=== PATIENT | male | born 1955 | race Caucasian/White ===

== ENCOUNTER 2021-05-28 14:20 | Inpatient (IN) | payer MEDICARE, BC ==
[2021-05-28] MEDS ORDERED: Sodium Chloride 0.9% 10 ML Syringe FLUSH PRN (15:09)
[2021-05-28] MEDS ORDERED: Sodium Chloride 0.9% 1,000 ML IV STA ×2 (15:10→19:39)
--- NOTE | 2021-05-28 15:45 | CR ---
Chest: Frontal view of the chest was obtained. Comparison: No prior chest imaging is available. Heart size is normal. Tortuous thoracic aorta is seen. Small nodule is seen within the left lung base. Lungs otherwise are clear with no acute parenchymal change. Bony structures are osteopenic. No acute osseous finding is appreciated. Impression: 1. Small nodule within the left lung base. Recommend noncontrast chest CT to further evaluate. 2. Nothing acute is otherwise seen on frontal chest x-ray. Diagnostic code #9 Report for [address] was discussed by phone with Dr. Jean on 05/28/21, 3:40 PM.
[2021-05-28 15:55] LABS: CORONAVIRUS COVID-19 NAA NEGATIVE (NEGATIVE)
--- NOTE | 2021-05-28 16:22 | EDM.PDOC ---
<William Caballero - Last Filed: 05/29/21 22:00> ED HPI GENERAL MEDICAL PROBLEM - General Chief Complaint: General Stated Complaint: SENT FROM [place]- LOW BP\OXYGEN Time Seen by Provider: 05/28/21 15:08 - Related Data Allergies Allergy/AdvReac Type Severity Reaction Status Date / Time No Known Allergies Allergy Verified 03/11/16 07:37 Home Meds: Home Meds Chlorthalidone 25 mg PO DAILY 05/28/21 [History] Metoprolol Succinate 100 mg PO DAILY 05/28/21 [History] lisinopriL [Lisinopril] 10 mg PO DAILY 05/28/21 [History] sulfaSALAzine [Azulfidine] 500 mg PO BID 05/28/21 [History] ED GENERAL MEDICAL PROCEDURES - Additional/Other Procedure(s) Other (Free Text) Procedure(s): Central Venous Catheter (CVC, Central Line) Placement Indication: Intravenous access for vasopressors A time-out was completed verifying correct patient, procedure, site, positioning, and special equipment if applicable. The patient was placed in a dependent position appropriate for central line placement based on the vein to be cannulated. The patients right groin was prepped and draped in sterile fashion. 1% Lidocaine was used to anesthetize the surrounding skin area. A triple lumen catheter was introduced into the the <right common femoral vein using the Seldinger technique and under ultrasound guidance. The catheter was threaded smoothly over the guide wire and appropriate blood return was obtained. Each lumen of the catheter was evacuated of air and flushed with sterile saline. The catheter was then sutured in place to the skin and a sterile dressing applied. Perfusion to the extremity distal to the point of catheter insertion was checked and found to be adequate. < Estimated Blood Loss: 3 cc The patient tolerated the procedure well and there were no complications. Course - Re-Assessments/Exams Free Text/Narrative Re-Assessment/Exam: 05/29/21 02:44 Assumed care at routine shift change. Chart was reviewed including laboratory studies, vital signs and patient history. Patient became more tachycardic and remained hypotensive. With elevated D-dimer, a CT angiogram was ordered to rule out massive pulmonary embolism. At this was negative. At this point, I decided to initiate Levophed infusion for patient's hypotension and to continue with resuscitation. Right femoral vein was utilized so that if dialysis is needed, internal jugular vein was available. At this point, etiology of hypotension is unclear the patient has maintained a normal mental status. We will titrate Levophed as needed to maintain systolic blood pressure greater than 100. We will continue with IV fluids. Repeat laboratory studies in the morning as we await patient placement. Free Text/Narrative Re-Assessment/Exam: 05/29/21 06:30 Patient seems to be more stabilized on Levophed. However, we will continue with hydrocortisone 50 mg every 6 hours for a total of 4 doses. Thus far, does not appear to be septic shock, cardiogenic shock and with the timing of abrupt cessation of steroids, we will treat for acute adrenal insufficiency Departure - Departure Time of Disposition: 10:00 Disposition: Admitted As Inpatient 67 Clinical Impression: Adrenal crisis Hypotension Qualifiers: Hypotension type: other hypotension type Qualified Code(s): I95.89 - Other hypotension - Discharge Information Critical Care Note - Critical Care Note Total Time (mins): 35 Comments: Critical Care Procedure Note Total critical care time: Approximately 35 minutes Due to a high probability of clinically significant, life threatening deterioration, the patient required my highest level of preparedness to intervene emergently and I personally spent this critical care time directly and personally managing the patient. This critical care time included obtaining a history; examining the patient; pulse oximetry; ordering and review of studies; arranging urgent treatment with development of a management plan; evaluation of patient's response to treatment; frequent reassessment; and, discussions with other providers. This critical care time was performed to assess and manage the high probability of imminent, life-threatening deterioration that could result in multi-organ failure. It was exclusive of separately billable procedures and treating other patients and teaching time. <Radha Leone - Last Filed: 05/30/21 22:18> ED HPI GENERAL MEDICAL PROBLEM - General Source of Information: Reports: Patient, Family, RN Notes Reviewed History Limitations: Reports: No Limitations - History of Present Illness INITIAL COMMENTS - FREE TEXT/NARRATIVE: Patient is a 66-year-old male presenting to the ER from [facility] for hypotension and low oxygen saturation. Provider, Celestina Christiansen, GINO, reported patient's blood pressure was 60-70 systolically. She also reported that his oxygen saturation was 84% on room air. He had an appointment with her to establish care. Patient and his report that he has had a cough for the last 3 weeks and has had little appetite. He has not been eating or drinking well. He had his Covid booster on April 26, however he was exposed to Covid on 24 April through his daughter. He did have his first 2 Covid vaccinations in October and September of last year. Patient denies any dizziness upon standing, chest pain, shortness of breath, vomiting, fever, or chills. States that he does feel overall fatigued and has had some intermittent diarrhea. He had a steroid injection in his right hip prior to being seen in the clinic by Celestina Christiansen. They did not check his blood pressure at that visit. Patient reports history of Raynaud's and difficulty obtaining oxygen saturation using finger probe. Past Medical History Other HEENT History: has upper dentures, partial denture on bottom, wears eyeglasses Cardiovascular History: Reports: Hypertension Musculoskeletal History: Reports: Back Pain, Chronic, RA - Infectious Disease History Infectious Disease History: Reports: None - Past Surgical History HEENT Surgical History: Reports: Adenoidectomy, Tonsillectomy Musculoskeletal Surgical History: Reports: Knee Replacement Other Musculoskeletal Surgeries/Procedures:: Lumbar spine fusion Social & Family History - Family History Family Medical History: No Pertinent Family History - Tobacco Use Tobacco Use Status *Q: Former Tobacco User Used Tobacco, but Quit: Yes Month/Year Tobacco Last Used: 45 yrs - Caffeine Use Caffeine Use: Reports: Coffee, Tea - Recreational Drug Use Recreational Drug Use: No - Living Situation & Occupation Living situation: Reports: Occupation: Employed ED ROS GENERAL - Review of Systems Review Of Systems: See Below Constitutional: Reports: Decreased Appetite. Denies: Fever HEENT: Reports: No Symptoms Respiratory: Reports: Cough. Denies: Shortness of Breath, Wheezing, Pleuritic Chest Pain Cardiovascular: Reports: No Symptoms. Denies: Chest Pain, Dyspnea on Exertion, Lightheadedness, Palpitations, Syncope Endocrine: Reports: No Symptoms GI/Abdominal: Reports: Diarrhea, Decreased Appetite, Nausea. Denies: Abdominal Pain, Vomiting : Reports: No Symptoms. Denies: Dysuria, Flank Pain, Urinary Retention Musculoskeletal: Reports: No Symptoms Skin: Reports: No Symptoms Neurological: Reports: No Symptoms Psychiatric: Reports: No Symptoms Hematologic/Lymphatic: Reports: No Symptoms Immunologic: Reports: No Symptoms ED EXAM, GENERAL - Physical Exam Exam: See Below Exam Limited By: No Limitations General Appearance: Alert, WD/WN, No Apparent Distress Eye Exam: Bilateral Eye: Normal Inspection, PERRL Respiratory/Chest: No Respiratory Distress, Lungs Clear, Normal Breath Sounds, No Accessory Muscle Use, Chest Non-Tender Cardiovascular: Normal Peripheral Pulses, Regular Rate, Rhythm, No Edema, No Gallop, No JVD, No Murmur, No Rub GI/Abdominal: Normal Bowel Sounds, Soft, Non-Tender, No Organomegaly, No Distention, No Abnormal Bruit, No Mass Extremities: Other (fingers on bilateral hands white and cold to touch.) Neurological: Alert, Oriented, CN II-XII Intact, Normal Cognition, Normal Reflexes, No Motor/Sensory Deficits Psychiatric: Normal Affect, Normal Mood Skin Exam: Warm, Dry, Intact, Normal Color, No Rash #1 Interpretation EKG Date: 05/28/21 Time: 15:44 Rhythm: NSR Rate (Beats/Min): 86 [place]: Normal P-Wave: Present QRS: Normal ST-T: Normal QT: Normal Course - Vital Signs Last Recorded V/S: Last Vital Signs Temp 97.5 F 05/30/21 19:56 Pulse 90 05/30/21 19:56 Resp 16 05/30/21 19:56 BP 108/77 05/30/21 19:45 Pulse Ox 97 05/30/21 19:45 - Orders/Labs/Meds Orders: Medication Orders Acetaminophen (Acetaminophen 325 Mg Tab) 650 mg PO Q4H PRN PRN Reason: Pain (Mild 1-3)/fever Albuterol (Albuterol 0.083% 2.5 Mg/3 Ml Neb Soln) 2.5 mg NEB Q2H PRN PRN Reason: Shortness Of Breath/wheezing Benzocaine/Menthol (Benzocaine/Cetylpyridinium/Menthol Lozenge) 1 lozenge MUC MEM Q2H PRN PRN Reason: Sore Throat Last Admin: 05/29/21 22:19 Dose: 1 lozenge Documented by: Admin: 05/29/21 20:54 Dose: 1 lozenge Documented by: ALEX Benzonatate (Benzonatate 100 Mg Cap) 100 mg PO Q8H PRN PRN Reason: Cough Last Admin: 05/30/21 21:39 Dose: 100 mg Documented by: Admin: 05/30/21 10:27 Dose: 100 mg Documented by: LISA Heparin Sodium (Porcine) (Heparin Sodium 5,000 Units/Ml Vial) 5,000 units SUBCUT Q12H MEG Last Admin: 05/30/21 19:45 Dose: 5,000 units Documented by: Admin: 05/30/21 08:07 Dose: 5,000 units Documented by: Admin: 05/29/21 20:42 Dose: 5,000 units Documented by: ALEX Norepinephrine Bitartrate 4 mg (/ Dextrose/Water) 250 mls @ 7.5 mls/hr IV TITRATE MEG; Protocol Last Titration: 05/30/21 19:53 Dose: 0 mcg/min, 0 mls/hr Documented by: Titration: 05/30/21 14:45 Dose: 1 mcg/min, 3.75 mls/hr Documented by: Titration: 05/30/21 12:10 Dose: 1.5 mcg/min, 5.625 mls/hr Documented by: Titration: 05/30/21 08:44 Dose: 2 mcg/min, 7.5 mls/hr Documented by: Titration: 05/30/21 05:11 Dose: 3 mcg/min, 11.25 mls/hr Documented by: Titration: 05/30/21 03:35 Dose: 4 mcg/min, 15 mls/hr Documented by: Titration: 05/30/21 01:03 Dose: 5 mcg/min, 18.75 mls/hr Documented by: Titration: 05/30/21 00:36 Dose: 4 mcg/min, 15 mls/hr Documented by: Titration: 05/29/21 23:39 Dose: 3 mcg/min, 11.25 mls/hr Documented by: Titration: 05/29/21 22:20 Dose: 2 mcg/min, 7.5 mls/hr Documented by: Admin: 05/29/21 20:57 Dose: 3 mcg/min, 11.25 mls/hr Documented by: Titration: 05/29/21 20:56 Dose: 0 mcg/min, 0 mls/hr Documented by: Titration: 05/29/21 10:55 Dose: 4 mcg/min, 15 mls/hr Documented by: Titration: 05/29/21 08:30 Dose: 3 mcg/min, 11.25 mls/hr Documented by: Titration: 05/29/21 06:56 Dose: 2 mcg/min, 7.5 mls/hr Documented by: Titration: 05/29/21 06:00 Dose: 4 mcg/min, 15 mls/hr Documented by: Titration: 05/29/21 04:48 Dose: 6 mcg/min, 22.5 mls/hr Documented by: Titration: 05/29/21 03:30 Dose: 4 mcg/min, 15 mls/hr Documented by: Admin: 05/29/21 01:38 Dose: 2 mcg/min, 7.5 mls/hr Documented by: ROSETTA Ondansetron HCl (Ondansetron 4 Mg/2 Ml Sdv) 4 mg IV Q6H PRN PRN Reason: Nausea/Vomiting Sodium Bicarbonate (Sodium Bicarbonate 650 Mg Tab) 650 mg PO BID MEG Last Admin: 05/30/21 21:39 Dose: 650 mg Documented by: Admin: 05/30/21 08:07 Dose: 650 mg Documented by: Admin: 05/29/21 20:42 Dose: 650 mg Documented by: Admin: 05/29/21 20:05 Dose: Not Given Documented by: ALEX Sodium Chloride (Sodium Chloride 0.9% 10 Ml Syringe) 10 ml FLUSH ASDIRECTED PRN PRN Reason: Keep Vein Open Last Admin: 05/28/21 16:12 Dose: 10 ml Documented by: LANCE Labs: Laboratory Tests 05/28/21 05/28/21 05/28/21 Range/Units 15:00 15:10 15:30 WBC 9.85 H (4.23-9.07) K/mm3 RBC 4.43 L (4.63-6.08) M/mm3 Hgb 12.8 L D (13.7-17.5) gm/dl Hct 38.1 L (40.1-51.0) % MCV 86.0 D (79.0-92.2) fl MCH 28.9 (25.7-32.2) pg MCHC 33.6 (32.2-35.5) g/dl RDW Std Deviation 53.4 H (35.1-43.9) fL Plt Count 356 H D (163-337) K/mm3 MPV 11.0 (9.4-12.3) fl Neut % (Auto) 80.9 H (34.0-67.9) % Lymph % (Auto) 12.5 L (21.8-53.1) % Perry % (Auto) 4.6 L (5.3-12.2) % Eos % (Auto) 1.5 (0.8-7.0) Baso % (Auto) 0.4 (0.1-1.2) % Neut # (Auto) 7.97 H (1.78-5.38) K/mm3 Lymph # (Auto) 1.23 L (1.32-3.57) K/mm3 Perry # (Auto) 0.45 (0.30-0.82) K/mm3 Eos # (Auto) 0.15 (0.04-0.54) K/mm3 Baso # (Auto) 0.04 (0.01-0.08) K/mm3 D-Dimer, Quantitative (0.19-0.50) mg/L Sodium (136-145) mEq/L Potassium (3.5-5.1) mEq/L Chloride (98-107) mEq/L Carbon Dioxide (21-32) mEq/L Anion Gap (5-15) BUN (7-18) mg/dL Creatinine (0.7-1.3) mg/dL Est Cr Clr Drug Dosing mL/min Estimated GFR (MDRD) (>60) mL/min BUN/Creatinine Ratio (14-18) Glucose (70-99) mg/dL POC Glucose (70-99) mg/dL Lactic Acid 2.1 H* (0.4-2.0) mmol/L Calcium (8.5-10.1) mg/dL Magnesium (1.8-2.4) mg/dL Total Bilirubin (0.2-1.0) mg/dL AST (15-37) U/L ALT (16-63) U/L Alkaline Phosphatase (46-116) U/L Troponin I (0.00-0.056) ng/mL C-Reactive Protein (<1.0) mg/dL NT-Pro-B Natriuret Pep (0-125) pg/mL Total Protein (6.4-8.2) g/dl Albumin (3.4-5.0) g/dl Globulin gm/dL Albumin/Globulin Ratio (1-2) Urine Color (Yellow) Urine Appearance (Clear) Urine pH (5.0-8.0) Ur Specific [place] (1.005-1.030) Urine Protein (Negative) Urine Glucose (UA) (Negative) Urine Ketones (Negative) Urine Occult Blood (Negative) Urine Nitrite (Negative) Urine Bilirubin (Negative) Urine Urobilinogen (0.2-1.0) Ur Leukocyte Esterase (Negative) U Hyaline Cast (Auto) (0-5) /lpf Urine RBC (0-5) /hpf Urine WBC (0-5) /hpf Ur Squamous Epith Cells (0-5) /hpf Urine Bacteria (FEW) /hpf Urine Mucus (FEW) /hpf Influenza Type A RNA Negative (NEGATIVE) Influenza Type B RNA Negative (NEGATIVE) SARS-CoV-2 RNA ([place]) Negative (NEGATIVE) 05/28/21 05/28/21 05/28/21 Range/Units 15:30 15:30 15:30 WBC (4.23-9.07) K/mm3 RBC (4.63-6.08) M/mm3 Hgb (13.7-17.5) gm/dl Hct (40.1-51.0) % MCV (79.0-92.2) fl MCH (25.7-32.2) pg MCHC (32.2-35.5) g/dl RDW Std Deviation (35.1-43.9) fL Plt Count (163-337) K/mm3 MPV (9.4-12.3) fl Neut % (Auto) (34.0-67.9) % Lymph % (Auto) (21.8-53.1) % Perry % (Auto) (5.3-12.2) % Eos % (Auto) (0.8-7.0) Baso % (Auto) (0.1-1.2) % Neut # (Auto) (1.78-5.38) K/mm3 Lymph # (Auto) (1.32-3.57) K/mm3 [place] # (Auto) (0.30-0.82) K/mm3 Eos # (Auto) (0.04-0.54) K/mm3 Baso # (Auto) (0.01-0.08) K/mm3 D-Dimer, Quantitative 2.22 H (0.19-0.50) mg/L Sodium 132 L (136-145) mEq/L Potassium 5.7 H D (3.5-5.1) mEq/L Chloride 94 L (98-107) mEq/L Carbon Dioxide 10 L D (21-32) mEq/L Anion Gap 33.7 H (5-15) BUN 178 H D (7-18) mg/dL Creatinine 14.4 H D (0.7-1.3) mg/dL Est Cr Clr Drug Dosing 5.11 mL/min Estimated GFR (MDRD) 3 (>60) mL/min BUN/Creatinine Ratio 12.4 L (14-18) Glucose 170 H (70-99) mg/dL POC Glucose (70-99) mg/dL Lactic Acid (0.4-2.0) mmol/L Calcium 9.7 (8.5-10.1) mg/dL Magnesium (1.8-2.4) mg/dL Total Bilirubin 0.5 (0.2-1.0) mg/dL AST 14 L (15-37) U/L ALT 15 L (16-63) U/L Alkaline Phosphatase 98 (46-116) U/L Troponin I < 0.017 (0.00-0.056) ng/mL C-Reactive Protein 2.3 H* (<1.0) mg/dL NT-Pro-B Natriuret Pep 4886 H (0-125) pg/mL Total Protein 8.4 H (6.4-8.2) g/dl Albumin 3.4 (3.4-5.0) g/dl Globulin 5.0 gm/dL Albumin/Globulin Ratio 0.7 L (1-2) Urine Color (Yellow) Urine Appearance (Clear) Urine pH (5.0-8.0) Ur Specific [place] (1.005-1.030) Urine Protein (Negative) Urine Glucose (UA) (Negative) Urine Ketones (Negative) Urine Occult Blood (Negative) Urine Nitrite (Negative) Urine Bilirubin (Negative) Urine Urobilinogen (0.2-1.0) Ur Leukocyte Esterase (Negative) U Hyaline Cast (Auto) (0-5) /lpf Urine RBC (0-5) /hpf Urine WBC (0-5) /hpf Ur Squamous Epith Cells (0-5) /hpf Urine Bacteria (FEW) /hpf Urine Mucus (FEW) /hpf Influenza Type A RNA (NEGATIVE) Influenza Type B RNA (NEGATIVE) SARS-CoV-2 RNA ([place]) (NEGATIVE) 05/28/21 05/28/21 05/28/21 Range/Units 19:18 19:40 22:03 WBC (4.23-9.07) K/mm3 RBC (4.63-6.08) M/mm3 Hgb (13.7-17.5) gm/dl Hct (40.1-51.0) % MCV (79.0-92.2) fl MCH (25.7-32.2) pg MCHC (32.2-35.5) g/dl RDW Std Deviation (35.1-43.9) fL Plt Count (163-337) K/mm3 MPV (9.4-12.3) fl Neut % (Auto) (34.0-67.9) % Lymph % (Auto) (21.8-53.1) % [place] % (Auto) (5.3-12.2) % Eos % (Auto) (0.8-7.0) Baso % (Auto) (0.1-1.2) % Neut # (Auto) (1.78-5.38) K/mm3 Lymph # (Auto) (1.32-3.57) K/mm3 [place] # (Auto) (0.30-0.82) K/mm3 Eos # (Auto) (0.04-0.54) K/mm3 Baso # (Auto) (0.01-0.08) K/mm3 D-Dimer, Quantitative (0.19-0.50) mg/L Sodium 132 L (136-145) mEq/L Potassium 6.0 H (3.5-5.1) mEq/L Chloride 99 (98-107) mEq/L Carbon Dioxide 12 L (21-32) mEq/L Anion Gap 27.0 H (5-15) BUN 176 H (7-18) mg/dL Creatinine 12.3 H D (0.7-1.3) mg/dL Est Cr Clr Drug Dosing 5.99 mL/min Estimated GFR (MDRD) 4 (>60) mL/min BUN/Creatinine Ratio 14.3 (14-18) Glucose 150 H (70-99) mg/dL POC Glucose 182 H (70-99) mg/dL Lactic Acid (0.4-2.0) mmol/L Calcium 8.0 L D (8.5-10.1) mg/dL Magnesium (1.8-2.4) mg/dL Total Bilirubin (0.2-1.0) mg/dL AST (15-37) U/L ALT (16-63) U/L Alkaline Phosphatase (46-116) U/L Troponin I (0.00-0.056) ng/mL C-Reactive Protein (<1.0) mg/dL NT-Pro-B Natriuret Pep (0-125) pg/mL Total Protein (6.4-8.2) g/dl Albumin (3.4-5.0) g/dl Globulin gm/dL Albumin/Globulin Ratio (1-2) Urine Color Dark yellow (Yellow) Urine Appearance Clear (Clear) Urine pH 5.5 (5.0-8.0) Ur Specific [place] > or = 1.030 (1.005-1.030) Urine Protein 2+ H (Negative) Urine Glucose (UA) Negative (Negative) Urine Ketones Trace H (Negative) Urine Occult Blood Negative (Negative) Urine Nitrite Negative (Negative) Urine Bilirubin 2+ H (Negative) Urine Urobilinogen 0.2 (0.2-1.0) Ur Leukocyte Esterase Negative (Negative) U Hyaline Cast (Auto) 20-30 H (0-5) /lpf Urine RBC 0-5 (0-5) /hpf Urine WBC 0-5 (0-5) /hpf Ur Squamous Epith Cells 0-5 (0-5) /hpf Urine Bacteria Few (FEW) /hpf Urine Mucus Moderate H (FEW) /hpf Influenza Type A RNA (NEGATIVE) Influenza Type B RNA (NEGATIVE) SARS-CoV-2 RNA ([place]) (NEGATIVE) 05/28/21 05/28/21 05/29/21 Range/Units 22:06 22:06 05:52 WBC (4.23-9.07) K/mm3 RBC (4.63-6.08) M/mm3 Hgb (13.7-17.5) gm/dl Hct (40.1-51.0) % MCV (79.0-92.2) fl MCH (25.7-32.2) pg MCHC (32.2-35.5) g/dl RDW Std Deviation (35.1-43.9) fL Plt Count (163-337) K/mm3 MPV (9.4-12.3) fl Neut % (Auto) (34.0-67.9) % Lymph % (Auto) (21.8-53.1) % Perry % (Auto) (5.3-12.2) % Eos % (Auto) (0.8-7.0) Baso % (Auto) (0.1-1.2) % Neut # (Auto) (1.78-5.38) K/mm3 Lymph # (Auto) (1.32-3.57) K/mm3 [place] # (Auto) (0.30-0.82) K/mm3 Eos # (Auto) (0.04-0.54) K/mm3 Baso # (Auto) (0.01-0.08) K/mm3 D-Dimer, Quantitative (0.19-0.50) mg/L Sodium 138 141 (136-145) mEq/L Potassium 4.3 D 4.1 (3.5-5.1) mEq/L Chloride 103 106 (98-107) mEq/L Carbon Dioxide 16 L 15 L (21-32) mEq/L Anion Gap 23.3 H 24.1 H (5-15) BUN 167 H 147 H (7-18) mg/dL Creatinine 10.4 H D 7.1 H D (0.7-1.3) mg/dL Est Cr Clr Drug Dosing 7.08 10.37 mL/min Estimated GFR (MDRD) 5 8 (>60) mL/min BUN/Creatinine Ratio 16.1 20.7 H (14-18) Glucose 177 H 180 H (70-99) mg/dL POC Glucose (70-99) mg/dL Lactic Acid (0.4-2.0) mmol/L Calcium 8.0 L 8.1 L (8.5-10.1) mg/dL Magnesium 2.1 (1.8-2.4) mg/dL Total Bilirubin (0.2-1.0) mg/dL AST (15-37) U/L ALT (16-63) U/L Alkaline Phosphatase (46-116) U/L Troponin I < 0.017 (0.00-0.056) ng/mL C-Reactive Protein (<1.0) mg/dL NT-Pro-B Natriuret Pep (0-125) pg/mL Total Protein (6.4-8.2) g/dl Albumin (3.4-5.0) g/dl Globulin gm/dL Albumin/Globulin Ratio (1-2) Urine Color (Yellow) Urine Appearance (Clear) Urine pH (5.0-8.0) Ur Specific [place] (1.005-1.030) Urine Protein (Negative) Urine Glucose (UA) (Negative) Urine Ketones (Negative) Urine Occult Blood (Negative) Urine Nitrite (Negative) Urine Bilirubin (Negative) Urine Urobilinogen (0.2-1.0) Ur Leukocyte Esterase (Negative) U Hyaline Cast (Auto) (0-5) /lpf Urine RBC (0-5) /hpf Urine WBC (0-5) /hpf Ur Squamous Epith Cells (0-5) /hpf Urine Bacteria (FEW) /hpf Urine Mucus (FEW) /hpf Influenza Type A RNA (NEGATIVE) Influenza Type B RNA (NEGATIVE) SARS-CoV-2 RNA ([place]) (NEGATIVE) 05/29/21 Range/Units 14:57 WBC (4.23-9.07) K/mm3 RBC (4.63-6.08) M/mm3 Hgb (13.7-17.5) gm/dl Hct (40.1-51.0) % MCV (79.0-92.2) fl MCH (25.7-32.2) pg MCHC (32.2-35.5) g/dl RDW Std Deviation (35.1-43.9) fL Plt Count (163-337) K/mm3 MPV (9.4-12.3) fl Neut % (Auto) (34.0-67.9) % Lymph % (Auto) (21.8-53.1) % Perry % (Auto) (5.3-12.2) % Eos % (Auto) (0.8-7.0) Baso % (Auto) (0.1-1.2) % Neut # (Auto) (1.78-5.38) K/mm3 Lymph # (Auto) (1.32-3.57) K/mm3 Perry # (Auto) (0.30-0.82) K/mm3 Eos # (Auto) (0.04-0.54) K/mm3 Baso # (Auto) (0.01-0.08) K/mm3 D-Dimer, Quantitative (0.19-0.50) mg/L Sodium 138 (136-145) mEq/L Potassium 3.3 L (3.5-5.1) mEq/L Chloride 105 (98-107) mEq/L Carbon Dioxide 15 L (21-32) mEq/L Anion Gap 21.3 H (5-15) BUN 141 H (7-18) mg/dL Creatinine 4.7 H D (0.7-1.3) mg/dL Est Cr Clr Drug Dosing 15.67 mL/min Estimated GFR (MDRD) 13 (>60) mL/min BUN/Creatinine Ratio 30.0 H (14-18) Glucose 240 H (70-99) mg/dL POC Glucose (70-99) mg/dL Lactic Acid (0.4-2.0) mmol/L Calcium 8.2 L (8.5-10.1) mg/dL Magnesium (1.8-2.4) mg/dL Total Bilirubin 0.4 (0.2-1.0) mg/dL AST 12 L (15-37) U/L ALT 15 L (16-63) U/L Alkaline Phosphatase 77 (46-116) U/L Troponin I (0.00-0.056) ng/mL C-Reactive Protein (<1.0) mg/dL NT-Pro-B Natriuret Pep (0-125) pg/mL Total Protein 6.0 L (6.4-8.2) g/dl Albumin 2.7 L (3.4-5.0) g/dl Globulin 3.3 gm/dL Albumin/Globulin Ratio 0.8 L (1-2) Urine Color (Yellow) Urine Appearance (Clear) Urine pH (5.0-8.0) Ur Specific [place] (1.005-1.030) Urine Protein (Negative) Urine Glucose (UA) (Negative) Urine Ketones (Negative) Urine Occult Blood (Negative) Urine Nitrite (Negative) Urine Bilirubin (Negative) Urine Urobilinogen (0.2-1.0) Ur Leukocyte Esterase (Negative) U Hyaline Cast (Auto) (0-5) /lpf Urine RBC (0-5) /hpf Urine WBC (0-5) /hpf Ur Squamous Epith Cells (0-5) /hpf Urine Bacteria (FEW) /hpf Urine Mucus (FEW) /hpf Influenza Type A RNA (NEGATIVE) Influenza Type B RNA (NEGATIVE) SARS-CoV-2 RNA ([place]) (NEGATIVE) Meds: Medications Generic Name Dose Route Start Last Admin Trade Name Freq PRN Reason Stop Dose Admin Acetaminophen 650 mg 05/29/21 19:34 Acetaminophen 325 Mg Tab PO Q4H PRN Pain (Mild 1-3)/fever Albuterol 2.5 mg 05/29/21 19:34 Albuterol 0.083% 2.5 Mg/3 Ml Neb Soln NEB Q2H PRN Shortness Of Breath/wheezing Benzocaine/Menthol 1 lozenge 05/29/21 20:34 05/29/21 22:19 Benzocaine/Cetylpyridinium/Menthol Lozenge MUCMEM 1 lozenge Q2H PRN Administration Sore Throat Benzonatate 100 mg 05/30/21 10:15 05/30/21 21:39 Benzonatate 100 Mg Cap PO 100 mg Q8H PRN Administration Cough Heparin Sodium (Porcine) 5,000 units 05/29/21 20:00 05/30/21 19:45 Heparin Sodium 5,000 Units/Ml Vial SUBCUT 5,000 units Q12H MEG Administration Norepinephrine Bitartrate 4 mg 250 mls @ 7.5 mls/hr 05/29/21 01:30 05/30/21 19:53 / Dextrose/Water IV 0 mcg/min TITRATE MEG 0 mls/hr Titration Protocol 2 MCG/MIN Ondansetron HCl 4 mg 05/29/21 19:34 Ondansetron 4 Mg/2 Ml Sdv IV Q6H PRN Nausea/Vomiting Sodium Bicarbonate 650 mg 05/29/21 16:15 05/30/21 21:39 Sodium Bicarbonate 650 Mg Tab PO 650 mg BID MEG Administration Sodium Chloride 10 ml 05/28/21 15:09 05/28/21 16:12 Sodium Chloride 0.9% 10 Ml Syringe FLUSH 10 ml ASDIRECTED PRN Administration Keep Vein Open Discontinued Medications Generic Name Dose Route Start Last Admin Trade Name Freq PRN Reason Stop Dose Admin Albuterol 2.5 mg 05/28/21 20:36 05/28/21 20:49 Albuterol 0.083% 2.5 Mg/3 Ml Neb Soln NEB 05/28/21 20:37 2.5 mg ONETIME ONE Administration Dextrose/Water 50 ml 05/28/21 20:39 05/28/21 20:49 50% Dextrose In Water 50 Ml Syringe IVPUSH 05/28/21 20:40 50 ml ASDIRECTED ONE Administration Hydrocortisone Sodium Succinate 100 mg 05/28/21 18:21 05/28/21 18:27 Hydrocortisone Sodium Succinate 100 Mg/2 Ml Sdv IVPUSH 05/28/21 18:22 100 mg ONETIME ONE Administration Hydrocortisone Sodium Succinate 50 mg 05/29/21 06:45 05/30/21 00:41 Hydrocortisone Sodium Succinate 100 Mg/2 Ml Sdv IVPUSH 05/30/21 00:46 50 mg Q6H MEG Administration Sodium Chloride 1,000 mls @ 999 mls/hr 05/28/21 15:10 05/28/21 16:12 Normal Saline IV 05/28/21 16:10 999 mls/hr NOW STA Administration Sodium Chloride 1,000 mls @ 999 mls/hr 05/28/21 16:40 05/28/21 17:56 Normal Saline IV 05/28/21 17:40 999 mls/hr ONETIME ONE Administration Sodium Chloride 1,000 mls @ 150 mls/hr 05/28/21 19:39 05/28/21 20:03 Normal Saline IV 05/29/21 02:18 250 mls/hr NOW STA Administration Sodium Chloride Confirm 05/29/21 11:09 05/29/21 20:00 Normal Saline Administered 05/29/21 11:10 Not Given Dose 1,000 mls @ as directed .ROUTE .STK-MED ONE Sodium Chloride 1,000 mls @ 150 mls/hr 05/29/21 23:59 Normal Saline IV 05/30/21 06:38 ONETIME ONE Insulin Human Regular 10 unit 05/28/21 20:38 05/28/21 20:50 Insulin Regular, Human 100 Units/Ml 3 Ml Vial IV 05/28/21 20:39 10 unit ONETIME ONE Administration Potassium Chloride 40 meq 05/29/21 16:06 05/29/21 20:08 Potassium Chloride 20 Meq Tab.Er PO 05/29/21 16:07 Not Given ONETIME ONE Potassium Chloride 40 meq 05/29/21 20:07 05/29/21 20:42 Potassium Chloride 20 Meq Tab.Er PO 05/29/21 20:08 40 meq ONETIME ONE Administration Sodium Bicarbonate 50 meq 05/28/21 20:55 05/28/21 21:36 Sodium Bicarbonate 8.4% 50 Meq/50 Ml Syringe IVPUSH 05/28/21 20:56 50 meq ONETIME ONE Administration Sodium Bicarbonate 50 meq 05/28/21 21:48 05/28/21 22:06 Sodium Bicarbonate 8.4% 50 Meq/50 Ml Syringe IVPUSH 05/28/21 21:49 50 meq ONETIME ONE Administration Sodium Polystyrene Sulfonate 15 gm 05/28/21 20:35 05/28/21 20:50 Sodium Polystyrene Sulfonate 15 Gm/60 Ml Susp 60 Ml Bot PO 05/28/21 20:36 15 gm ONETIME ONE Administration - Re-Assessments/Exams Free Text/Narrative Re-Assessment/Exam: Patient is a 66-year-old male presenting to the emergency department with complaints of low blood pressure and cough for 3 weeks. Blood pressure in triage was 68/43 and subsequently 71/44. Patient is not symptomatic with these. He has had nonproductive cough for the last 3 weeks. He has had no appetite but states he has still been drinking water. Denies any fever chills. He has had no chest pain or shortness of breath. Report from clinic was that his oxygen saturation is 84% on room air, however patient has Raynaud's and we are unable to get an accurate reading on a finger probe. Pulse oximeter by ear shows 98 to 100% on room air. I ordered blood work, Covid influenza testing, chest x-ray, EKG. We will start a 1 L bolus of normal saline. 05/28/21 1640 Hematology significant for WBC minimally elevated 9.85, hemoglobin 12.8, D-dimer 2.22, sodium 132, potassium 5.7, chloride 94, CO2 10, anion gap 33.7, BUN 178, creatinine 14.4 with a GFR of 3. Lactic acid slightly elevated 2.1. CRP 2.3, proBNP 4886. Troponin is undetectably low. Covid and influenza screen are negative. Patient has had minimal improvement with the first liter of IV fluids. I ordered a second liter of normal saline. Chest x-ray shows a small nodule in the left lung base. Radiologist recommends a noncontrast CT of the chest to further evaluate. Patient's D-dimer is elevated, however this is likely related to his kidney failure. Given his compromised kidney state, I will not pursue IV contrast at this time. Have ordered a noncontrast chest CT. I will begin looking for tertiary care facilities with nephrology services available. 05/28/21 18:27 Patient's blood pressure continues at 78/64 with majority of the second liter of IV fluids infused. After further questioning the patient. He reports that he has been on Medrol and prednisone chronically for the last few months, however he stopped taking it abruptly about 2 days ago. His low blood pressure may be related to an addisonian crisis. Have ordered hydrocortisone 100 mg IV. I have been in contact with [facility] in [place] as well as [facility], [facility], and [facility]. Unfortunately none of these facilities have beds available. [facility] reports if his blood pressure stabilizes, they may have availability on the medical surgical unit for him. We will continue to monitor this. Chest CT impression as follows: 1. Multiple small nodules seen within the chest. None of these appear to be worrisome at this point. Largest nodule measures 3 mm. 2. Other findings as noted above. 3. Recommend follow-up noncontrast chest CT study in 1 year. 05/28/21 21:21 Patient's blood pressures have improved. Last blood pressure 95/69. Called [facility] in [place] back and unfortunately have filled their medical surgical beds and are requesting outlying facilities to hold patients until morning. I did consult with the box worker, Dr. Martínez. Recommended that we decrease saline to 100 mils per hour, insert Hargrove catheter, and give 2 amps of sodium bicarb in addition to the insulin, albuterol, and Kayexalate that I already ordered. Patient's oxygen saturations remained stable at 98-99 percent on room air. MATHEW Horan will contact facilities in [place], [place], and [facility] in [facility] to check for available beds. Patient will likely be with us in the emergency department through the night. 05/28/21 [address] Caballero at end of shift. He will assume care and disposition of patient. Free Text/Narrative Re-Assessment/Exam: 05/29/21 11:48 Care resumed at start of new shift. Patient is resting comfortably. Blood pressures stable on Levophed at 4 mcg/min. Spoke with [facility] and unfortunately do not have beds available. Administration has been in contact with [facility] in [place] and we are hoping they will have some discharges today and be able to accept patient for transfer. 05/29/21 16:15 Patient remained stable. Repeat CMP was completed. Potassium was low to be slightly low at 3.3, CO2 15, anion gap improved at 21.3, BUN 141, creatinine 4.7. Patient's GFR is increased to 13. He is putting out a good amount of urine through his catheter. Case was discussed with box worker at [facility] in [place], Dr. Riojas. Unfortunately not have any beds accept the patient for admission. Nephrology feels that patient likely had obstructive renal failure given his significant improvement in kidney function thus far. He does state that he will likely go through postobstructive diuresis which causes potassium to go low. Potassium is slightly low at this time at 3.3. He recommend we give 40 mill equivalents of oral potassium. He also recommends we start him on sodium bicarbonate 650 mg orally twice daily. Case was discussed with hospitalist, Dr. Suarez. He has accepted him for admission into our ICU as we did have discharges.
[2021-05-28] MEDS ORDERED: Sodium Chloride 0.9% 1,000 ML IV ONE (16:40)
--- NOTE | 2021-05-28 17:54 | CT ---
CT chest Technique: Multiple axial sections of the chest were obtained. Intravenous contrast was not utilized. Reconstructed coronal and sagittal images were obtained. Comparison: Prior chest imaging performed earlier in same day (3:19 PM). Findings: Scattered emphysematous change is seen. There is a small nodule noted within the right upper lung measuring about 3 mm. Small pleural-based nodule is noted within the right middle lobe measuring 1.7 mm. Nodule is noted in a subpleural location within the right middle lobe measuring about 1.5 mm. Small subpleural nodule is noted within the right base measuring 2 mm. Small nodule is noted within the left base within the subpleural location measuring 3 mm. No larger nodule is appreciated. No calcifications are seen. No parenchymal infiltrates are seen. Thoracic aorta shows atherosclerotic change without aneurysm. Coronary artery calcification is noted. No mediastinal adenopathy is seen. No pericardial thickening is seen. Visualized upper abdominal structures show nothing acute. Bone window settings were reviewed which show several compression deformities within the thoracic spine and within what appears to be T12 which are felt to be old. Scattered degenerative change is also noted within the visualized spine. Impression: 1. Multiple small nodules are seen within the chest. None of these appear to be worrisome at this point. Largest nodule measures 3 mm. 2. Other findings as noted above. 3. Recommend follow-up noncontrast chest CT study in one year. Diagnostic code #2
[2021-05-28] MEDS ORDERED: Hydrocortisone Sodium Succinate 100 MG/2 ML SDV IVPUSH ONE (18:21)
[2021-05-28] MEDS ORDERED: Sodium Polystyrene Sulfonate 15 GM/60 ML Susp 60 ML Bot PO ONE (20:35)
[2021-05-28] MEDS ORDERED: Albuterol 0.083% 2.5 MG/3 ML Neb Soln NEB ONE (20:36)
[2021-05-28] MEDS ORDERED: Insulin Regular, Human 100 Units/ML 3 ML Vial IV ONE (20:38)
[2021-05-28] MEDS ORDERED: 50% Dextrose in Water 50 ML Syringe IVPUSH ONE (20:39)
[2021-05-28] MEDS ORDERED: Sodium Bicarbonate 8.4% 50 MEQ/50 ML Syringe IVPUSH ONE ×2 (20:55→21:48)
[2021-05-29] MEDS: Norepinephrine 4 MG in Dextrose 5% in Water 246 ML IV SCH ×4 (01:38→20:57)
[2021-05-29] MEDS: Hydrocortisone Sodium Succinate 100 MG/2 ML SDV IVPUSH SCH ×3 (06:55→20:42)
--- NOTE | 2021-05-29 07:31 | CT ---
CT chest Technique: Multiple axial sections through the chest were obtained. Intravenous contrast was utilized. Study has been performed as a pulmonary angiogram protocol. Comparison: Prior chest CT study performed earlier on the same day (4:58 PM). Findings: Pulmonary arteries are well opacified. No filling defects are seen to indicate pulmonary embolism. Thoracic aorta shows no aneurysm. Coronary artery calcification is noted. No pericardial thickening is seen. Visualized abdominal structures show nothing acute. Small scattered nodules are seen within the lungs which are stable from recent chest CT. There is a focal area of parenchymal density seen within the right lung base which is best seen on the reconstructed images and remains without change from prior exams. Since this is without change, difficult to exclude chronic parenchymal change unless patient has infectious symptoms. Impression: 1. No findings of pulmonary embolism. 2. Small stable nodules within both sides of the chest most likely benign but noncontrast CT study of the chest is recommended in one year to confirm stability. 3. Parenchymal density within the right lung base best seen on the reconstructed coronal images which is stable from prior chest imaging. This finding is small and most likely is due to an area of scarring unless patient has infectious symptoms to represent an area of pneumonia. Diagnostic code #3 I agree with preliminary report from [facility], finalized on 05/29/21, 1:35 AM SOFTWARE DESIGNER, code 1
[2021-05-29] MEDS ORDERED: Sodium Chloride 0.9% 1,000 ML ONE (11:09)
[2021-05-29] MEDS ORDERED: Potassium Chloride 20 MEQ Tab.ER PO ONE ×2 (16:06→20:07)
--- NOTE | 2021-05-29 17:06 | PCM.HP.2 ---
H&P History of Present Illness - General Date of Service: 05/29/21 Admit Problem/Dx: Admission Diagnosis/Problem Admission Diagnosis/Problem Hypotension - History of Present Illness Initial Comments - Free Text/Narative: 66-year-old male that was sent from the [facility] to the emergency department yesterday afternoon with hypotension and hypoxemia. Patient blood pressure was reportedly between 60 and 70 systolic and oxygen saturations in the mid 80s. According to his he had a poor appetite and mild cough for last 3 weeks.. He is fully vaccinated for COVID-19 including the booster on April 26. There was some exposure in April of Covid. Other than fatigue and some mild intermittent diarrhea he denies any other significant symptoms. He denies any fever, chills, night sweats, nausea, vomiting, shortness of breath, chest pain, or palpitations. In the emergency department he did have a low blood pressure of 68/43 with repeat of 71/44. Oxygen saturations were difficult to obtain on his fingers because of his Raynaud's disease and when they placed it on the ear it showed a 98 to 100% FiO2 on room air. Of note COVID-19 was negative. Initial chemistry panel showed severe kidney disease with a GFR of 3, creatinine of 14.4, BUN 178, potassium of 5.7, anion gap of 33.7, carbon dioxide of 10, sodium 132, chloride 94, glucose 170 with a lactic acid of 2.1. Emergency department provider tried to get him placed in a tertiary care facility, but there were no beds available regionally. Patient developed hypotension and required Levophed and a femoral line was placed. There was concern about him having an adrenal crisis secondary to chronic use of Solu-Medrol for the last few months. He also had his knee injected prior to admission. He was given 100 mg IV hydrocortisone and then started on hydrocortisone 50 mg IV every 6 hours x4. His treatment also involved treatment for hyperkalemia which included insulin, albuterol, Kayexalate, 2 A of sodium bicarb. When patient arrived on the floor he continued on a Levophed drip. Hargrove catheter had been placed. He is in good spirits. He states that he has been taking prednisone since February up until about 2 to 3 weeks ago when he first started getting fatigued. He was on that for his rheumatoid arthritis. He is not sure if it was a tapering dose or not but he did not call to have it renewed. 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 Patient's nephropathy was felt to be secondary to obstruction and it is believed the Hargrove catheter resolved that. Patient did stay for the few days he had to sit to urinate and had a weak stream when he did. While in the emergency department his creatinine did improve from 14.4 down to 4.7 and his estimated GFR improved from 3-13. He did have a positive D- dimer and had a CTA of the chest which showed no findings of pulmonary embolism. Small stable nodules within both sides of the chest most likely benign but noncontrast CT study of the chest is recommended in 1 year to confirm stability. Parenchymal density within the right lung base best seen on the reconstructed coronal images which is stable from prior chest imaging. This finding is small and most likely is due to an area of scarring unless the patient has infectious symptoms to represent an area of pneumonia. Patient does not have any signs or symptoms consistent with infection. The feeling is that his hypotension may be due to adrenal insufficiency versus poor excretion of his blood pressure medications due to his renal failure. - Related Data Allergies/Adverse Reactions: Allergies Allergy/AdvReac Type Severity Reaction Status Date / Time No Known Allergies Allergy Verified 03/11/16 07:37 Home Medications: Home Meds Chlorthalidone 25 mg PO DAILY 05/28/21 [History] Metoprolol Succinate 100 mg PO DAILY 05/28/21 [History] lisinopriL [Lisinopril] 10 mg PO DAILY 05/28/21 [History] sulfaSALAzine [Azulfidine] 500 mg PO BID 05/28/21 [History] Past Medical History Other HEENT History: has upper dentures, partial denture on bottom, wears eyeglasses Cardiovascular History: Reports: Hypertension Musculoskeletal History: Reports: Back Pain, Chronic, RA - Infectious Disease History Infectious Disease History: Reports: None - Past Surgical History HEENT Surgical History: Reports: Adenoidectomy, Tonsillectomy Musculoskeletal Surgical History: Reports: Knee Replacement Other Musculoskeletal Surgeries/Procedures:: Lumbar spine fusion Social & Family History - Family History Family Medical History: No Pertinent Family History - Tobacco Use Tobacco Use Status *Q: Former Tobacco User Used Tobacco, but Quit: Yes Month/Year Tobacco Last Used: 45 yrs - Caffeine Use Caffeine Use: Reports: Coffee, Tea - Recreational Drug Use Recreational Drug Use: No - Living Situation & Occupation Living situation: Reports: Occupation: Employed H&P Review of Systems - Review of Systems: Review Of Systems: Comprehensive ROS is negative, except as noted in HPI. Exam - Exam Exam: See Below - Vital Signs Vital Signs: Last Vital Signs Temp 95.6 F L 05/28/21 14:37 Pulse 108 H 05/29/21 15:34 Resp 18 05/29/21 08:22 BP 112/77 05/29/21 15:34 Pulse Ox 98 05/29/21 15:34 Weight: 182 lb - Exam Quality Assessment: No: Supplemental Oxygen General: Alert, Oriented HEENT: Conjunctiva Clear, Mucosa Moist & [place], Normal Nasal Septum. No: Hearing Intact (Hearing aids) Neck: Supple, Trachea Midline, 2 Lungs: Clear to Auscultation, Normal Respiratory Effort Cardiovascular: Regular Rhythm, Tachycardia GI/Abdominal Exam: Normal Bowel Sounds, Soft, Non-Tender, No Organomegaly, No Distention, No Abnormal Bruit, No Mass Extremities: Normal Inspection, Normal Range of Motion, Non-Tender, Normal Capillary Refill, Pedal Edema (1+ bilateral pedal edema) Peripheral Pulses: 2+: Posterior Tibial (L), Posterior Tibial (R), Dorsalis Pedis (L), Dorsalis Pedis (R) Skin: Warm, Dry, Intact Neuro Extensive - Mental Status: Alert, Oriented x3, Normal Mood/Affect, Normal Cognition, Memory Intact Neuro Extensive - Motor, Sensory, Reflexes: CN II-XII Intact Psychiatric: Alert, Normal Affect, Normal Mood - Patient Data Lab Results Last 24 hrs: Laboratory Results - last 24 hr 05/28/21 05/28/21 05/28/21 Range/Units 19:18 19:40 22:03 Sodium 132 L (136-145) mEq/L Potassium 6.0 H (3.5-5.1) mEq/L Chloride 99 (98-107) mEq/L Carbon Dioxide 12 L (21-32) mEq/L Anion Gap 27.0 H (5-15) BUN 176 H (7-18) mg/dL Creatinine 12.3 H D (0.7-1.3) mg/dL Est Cr Clr Drug Dosing 5.99 mL/min Estimated GFR (MDRD) 4 (>60) mL/min BUN/Creatinine Ratio 14.3 (14-18) Glucose 150 H (70-99) mg/dL POC Glucose 182 H (70-99) mg/dL Calcium 8.0 L D (8.5-10.1) mg/dL Magnesium (1.8-2.4) mg/dL Total Bilirubin (0.2-1.0) mg/dL AST (15-37) U/L ALT (16-63) U/L Alkaline Phosphatase (46-116) U/L Troponin I (0.00-0.056) ng/mL Total Protein (6.4-8.2) g/dl Albumin (3.4-5.0) g/dl Globulin gm/dL Albumin/Globulin Ratio (1-2) Urine Color Dark yellow (Yellow) Urine Appearance Clear (Clear) Urine pH 5.5 (5.0-8.0) Ur Specific Donovan > or = 1.030 (1.005-1.030) Urine Protein 2+ H (Negative) Urine Glucose (UA) Negative (Negative) Urine Ketones Trace H (Negative) Urine Occult Blood Negative (Negative) Urine Nitrite Negative (Negative) Urine Bilirubin 2+ H (Negative) Urine Urobilinogen 0.2 (0.2-1.0) Ur Leukocyte Esterase Negative (Negative) U Hyaline Cast (Auto) 20-30 H (0-5) /lpf Urine RBC 0-5 (0-5) /hpf Urine WBC 0-5 (0-5) /hpf Ur Squamous Epith Cells 0-5 (0-5) /hpf Urine Bacteria Few (FEW) /hpf Urine Mucus Moderate H (FEW) /hpf 05/28/21 05/28/21 05/29/21 Range/Units 22:06 22:06 05:52 Sodium 138 141 (136-145) mEq/L Potassium 4.3 D 4.1 (3.5-5.1) mEq/L Chloride 103 106 (98-107) mEq/L Carbon Dioxide 16 L 15 L (21-32) mEq/L Anion Gap 23.3 H 24.1 H (5-15) BUN 167 H 147 H (7-18) mg/dL Creatinine 10.4 H D 7.1 H D (0.7-1.3) mg/dL Est Cr Clr Drug Dosing 7.08 10.37 mL/min Estimated GFR (MDRD) 5 8 (>60) mL/min BUN/Creatinine Ratio 16.1 20.7 H (14-18) Glucose 177 H 180 H (70-99) mg/dL POC Glucose (70-99) mg/dL Calcium 8.0 L 8.1 L (8.5-10.1) mg/dL Magnesium 2.1 (1.8-2.4) mg/dL Total Bilirubin (0.2-1.0) mg/dL AST (15-37) U/L ALT (16-63) U/L Alkaline Phosphatase (46-116) U/L Troponin I < 0.017 (0.00-0.056) ng/mL Total Protein (6.4-8.2) g/dl Albumin (3.4-5.0) g/dl Globulin gm/dL Albumin/Globulin Ratio (1-2) Urine Color (Yellow) Urine Appearance (Clear) Urine pH (5.0-8.0) Ur Specific Donovan (1.005-1.030) Urine Protein (Negative) Urine Glucose (UA) (Negative) Urine Ketones (Negative) Urine Occult Blood (Negative) Urine Nitrite (Negative) Urine Bilirubin (Negative) Urine Urobilinogen (0.2-1.0) Ur Leukocyte Esterase (Negative) U Hyaline Cast (Auto) (0-5) /lpf Urine RBC (0-5) /hpf Urine WBC (0-5) /hpf Ur Squamous Epith Cells (0-5) /hpf Urine Bacteria (FEW) /hpf Urine Mucus (FEW) /hpf 05/29/ Range/Units 14:57 Sodium 138 (136-145) mEq/L Potassium 3.3 L (3.5-5.1) mEq/L Chloride 105 (98-107) mEq/L Carbon Dioxide 15 L (21-32) mEq/L Anion Gap 21.3 H (5-15) BUN 141 H (7-18) mg/dL Creatinine 4.7 H D (0.7-1.3) mg/dL Est Cr Clr Drug Dosing 15.67 mL/min Estimated GFR (MDRD) 13 (>60) mL/min BUN/Creatinine Ratio 30.0 H (14-18) Glucose 240 H (70-99) mg/dL POC Glucose (70-99) mg/dL Calcium 8.2 L (8.5-10.1) mg/dL Magnesium (1.8-2.4) mg/dL Total Bilirubin 0.4 (0.2-1.0) mg/dL AST 12 L (15-37) U/L ALT 15 L (16-63) U/L Alkaline Phosphatase 77 (46-116) U/L Troponin I (0.00-0.056) ng/mL Total Protein 6.0 L (6.4-8.2) g/dl Albumin 2.7 L (3.4-5.0) g/dl Globulin 3.3 gm/dL Albumin/Globulin Ratio 0.8 L (1-2) Urine Color (Yellow) Urine Appearance (Clear) Urine pH (5.0-8.0) Ur Specific Donovan (1.005-1.030) Urine Protein (Negative) Urine Glucose (UA) (Negative) Urine Ketones (Negative) Urine Occult Blood (Negative) Urine Nitrite (Negative) Urine Bilirubin (Negative) Urine Urobilinogen (0.2-1.0) Ur Leukocyte Esterase (Negative) U Hyaline Cast (Auto) (0-5) /lpf Urine RBC (0-5) /hpf Urine WBC (0-5) /hpf Ur Squamous Epith Cells (0-5) /hpf Urine Bacteria (FEW) /hpf Urine Mucus (FEW) /hpf Result Diagrams: 05/28/21 15:30 05/29/21 14:57 Sepsis Event Note - Focused Exam Vital Signs: Vital Signs Pulse Resp BP BP Pulse Ox 05/29/21 15:34 108 H 112/77 98 05/29/21 14:11 108 H 108/87 05/29/21 13:58 103 H 99/78 05/29/21 11:14 95 106/79 05/29/21 09:55 107 H 96/74 05/29/21 09:23 106 H 92/73 05/29/21 09:16 111 H 87/67 L 05/29/21 08:36 110 H 107/73 05/29/21 08:22 119 H 18 88/76 L 98 05/29/21 07:25 106 H 104/78 05/29/21 05:15 113 H 16 94/73 100 - Problem List (1) Lung nodule < 6cm on CT SNOMED Code(s): 350573960, 706652654 ICD Code: R91.1 - SOLITARY PULMONARY NODULE Status: Acute Current Visit: Yes (2) Obstructive nephropathy SNOMED Code(s): 46064796 ICD Code: N13.8 - OTHER OBSTRUCTIVE AND REFLUX UROPATHY Status: Acute Current Visit: Yes (3) Acute renal failure SNOMED Code(s): 38578140 ICD Code: N17.9 - ACUTE KIDNEY FAILURE, UNSPECIFIED Status: Acute Current Visit: Yes (4) Hypotension SNOMED Code(s): 00117403 ICD Code: I95.9 - HYPOTENSION, UNSPECIFIED Status: Acute Current Visit: Yes Problem List Initiated/Reviewed/Updated: Yes Orders Last 24hrs: Active Orders 24 hr Category Date Time Status Admission Status [Patient Status] [ADT] Routine ADT 05/29/21 16:41 Active Bladder Scan [RC] ASDIRECTED Care 05/28/21 17:49 Active Insert Hargrove Catheter [Insert Urinary Catheter] [OM.PC] Care 05/28/21 21:15 Ordered Q24H RT Aerosol Therapy [RC] ASDIRECTED Care 05/28/21 20:36 Active Urinary Catheter Assessment [RC] ASDIRECTED Care 05/28/21 21:12 Active Hydrocortisone Sod Succinate [Solu-CORTEF] Med 05/29/21 06:45 Active 50 mg IVPUSH Q6H Norepinephrine [Levophed] 4 mg Med 05/29/21 01:30 Active Dextrose 5% in Water 246 ml IV TITRATE Sodium Bicarbonate Med 05/29/21 16:15 Active 650 mg PO BID Medication Orders Hydrocortisone Sodium Succinate (Hydrocortisone Sodium Succinate 100 Mg/2 Ml Sdv) 50 mg IVPUSH Q6H MEG Stop: 05/30/21 00:46 Last Admin: 05/29/21 12:28 Dose: 50 mg Documented by: Admin: 05/29/21 06:55 Dose: 50 mg Documented by: ROSETTA Norepinephrine Bitartrate 4 mg (/ Dextrose/Water) 250 mls @ 7.5 mls/hr IV TITRATE MEG; Protocol Last Titration: 05/29/21 10:55 Dose: 4 mcg/min, 15 mls/hr Documented by: Titration: 05/29/21 08:30 Dose: 3 mcg/min, 11.25 mls/hr Documented by: Titration: 05/29/21 06:56 Dose: 2 mcg/min, 7.5 mls/hr Documented by: Titration: 05/29/21 06:00 Dose: 4 mcg/min, 15 mls/hr Documented by: Titration: 05/29/21 04:48 Dose: 6 mcg/min, 22.5 mls/hr Documented by: Titration: 05/29/21 03:30 Dose: 4 mcg/min, 15 mls/hr Documented by: Admin: 05/29/21 01:38 Dose: 2 mcg/min, 7.5 mls/hr Documented by: ROSETTA Sodium Bicarbonate (Sodium Bicarbonate 650 Mg Tab) 650 mg PO BID MEG Sodium Chloride (Sodium Chloride 0.9% 10 Ml Syringe) 10 ml FLUSH ASDIRECTED PRN PRN Reason: Keep Vein Open Last Admin: 05/28/21 16:12 Dose: 10 ml Documented by: LANCE Assessment/Plan Comment:: 66-year-old with acute renal failure possibly secondary to obstruction with hypotension possibly due to adrenal insufficiency. Acute renal failure Urinary obstruction Patient presents with 2-week history of worsening fatigue and mild cough. Over the last few days he states he has had worsening difficulty in urinating and was unable to urinate standing up. After insertion of the Hargrove catheter there is only a few 100 cc of urine, but he has had significant urinary output since and a significant improvement in his renal function. Dr. Martínez, tug boat captain, has been involved in his care and does believe this is an obstructive nephropathy. He does recommend continuing on sodium bicarb 650 mg twice daily to treat his acidemia. Kidney function has significantly improved with a creatinine of 14.4 decreasing to 4.7 and an estimated GFR of 3 increasing to 13. I suspect this will continue to improve over the next couple of days. Urine output is good. 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 Femoral line was placed last night. This may be due to many months of steroids for his rheumatoid arthritis. He did start feeling tired after he stopped his prednisone 2 to 3 weeks ago. Patient has been given 100 mg of hydrocortisone and 2 doses of hydrocortisone 50 mg. He has 2 more 50 mg doses ordered. Further treatment will need to be determined following his fourth 50 mg dose. We will continue to wean his norepinephrine as tolerated. I suspect he will be able to get off of the norepinephrine in the next 12 hours. Pulmonary nodule Patient will need a follow-up noncontrast CT in 1 year Past medical history of hypertension, Raynaud's disease, rheumatoid arthritis, osteoarthritis Plan Admit to ICU Wean norepinephrine as tolerated Continue bicarb 650 mg twice daily for acidosis secondary to renal failure Hargrove catheter Finish hydrocortisone 50 mg every 6 hours x4 Monitor CBC, CMP, magnesium closely Follow-up on blood cultures Strict I's and O's VTE prophylaxis with heparin CODE STATUS: Full code Disposition: Likely able to discharge in 2 days. - Mortality Measure Prognosis:: Good
[2021-05-29] MEDS ORDERED: Albuterol 0.083% 2.5 MG/3 ML Neb Soln NEB PRN (19:34)
[2021-05-29] MEDS ORDERED: Ondansetron 4 MG/2 ML SDV IV PRN (19:34)
[2021-05-29] MEDS ORDERED: Acetaminophen 325 MG Tab PO PRN (19:34)
[2021-05-29] MEDS: Sodium Bicarbonate 650 MG Tab PO SCH ×2 (20:05→20:42)
[2021-05-29] MEDS: Heparin Sodium 5,000 Units/ML Vial SUBCUT SCH (20:42)
[2021-05-29] MEDS: Benzocaine/Cetylpyridinium/Menthol Lozenge MUCMEM PRN ×2 (20:54→22:19)
[2021-05-29] MEDS ORDERED: Sodium Chloride 0.9% 1,000 ML IV ONE (23:59)
[2021-05-30] MEDS: Hydrocortisone Sodium Succinate 100 MG/2 ML SDV IVPUSH SCH (00:41)
--- NOTE | 2021-05-30 07:45 | PCM.PN ---
- General Info Date of Service: 05/30/21 Admission Dx/Problem (Free Text): Admission Diagnosis/Problem Admission Diagnosis/Problem Hypotension Subjective Update: The patient is a 66-year-old gentleman who was admitted to acute hospitalization through the emergency department due to hypotension and hypoxia. The patient has Raynaud's phenomenon and his oxygen saturations were spurious. The patient has remained in ICU due to pressors required to maintain his blood pressure. Because of likely adrenal insufficiency the patient was started on hydrocortisone. He has been tolerating this. Patient has denied any new pain. He has been tolerating his diet. He has no complaints today. Functional Status: Reports: Pain Controlled, Tolerating Diet. Denies: New Symptoms - Review of Systems General: Reports: No Symptoms HEENT: Reports: No Symptoms Pulmonary: Reports: No Symptoms Cardiovascular: Reports: No Symptoms Gastrointestinal: Reports: No Symptoms Genitourinary: Reports: No Symptoms Musculoskeletal: Reports: No Symptoms Skin: Reports: No Symptoms Neurological: Reports: No Symptoms Psychiatric: Reports: No Symptoms - Patient Data Vitals - Most Recent: Last Vital Signs Temp 36.3 C 05/30/21 04:00 Pulse 93 05/30/21 04:00 Resp 16 05/30/21 04:00 BP 106/70 05/30/21 07:15 Pulse Ox 96 05/30/21 07:15 Weight - Most Recent: 84.867 kg I&O - Last 24 Hours: Intake & Output 05/29/21 05/30/21 05/30/21 22:59 06:59 14:59 Intake Total 1139 Output Total 1685 815 Balance -1685 324 Lab Results Last 24 Hours: Laboratory Results - last 24 hr 05/28/21 05/29/21 05/30/21 Range/Units 19:18 14:57 05:20 WBC 7.56 (4.23-9.07) K/mm3 RBC 3.28 L (4.63-6.08) M/mm3 Hgb 9.4 L D (13.7-17.5) gm/dl Hct 28.2 L (40.1-51.0) % MCV 86.0 (79.0-92.2) fl MCH 28.7 (25.7-32.2) pg MCHC 33.3 (32.2-35.5) g/dl RDW Std Deviation 50.0 H (35.1-43.9) fL Plt Count 263 D (163-337) K/mm3 MPV 10.7 (9.4-12.3) fl Neut % (Auto) 88.8 H (34.0-67.9) % Lymph % (Auto) 7.1 L (21.8-53.1) % [place] % (Auto) 4.0 L (5.3-12.2) % Eos % (Auto) 0 L (0.8-7.0) Baso % (Auto) 0.0 L (0.1-1.2) % Neut # (Auto) 6.71 H (1.78-5.38) K/mm3 Lymph # (Auto) 0.54 L (1.32-3.57) K/mm3 [place] # (Auto) 0.30 (0.30-0.82) K/mm3 Eos # (Auto) 0.00 L (0.04-0.54) K/mm3 Baso # (Auto) 0.00 L (0.01-0.08) K/mm3 Sodium 138 (136-145) mEq/L Potassium 3.3 L (3.5-5.1) mEq/L Chloride 105 (98-107) mEq/L Carbon Dioxide 15 L (21-32) mEq/L Anion Gap 21.3 H (5-15) BUN 176 H 141 H (7-18) mg/dL Creatinine 4.7 H D (0.7-1.3) mg/dL Est Cr Clr Drug Dosing 15.67 mL/min Estimated GFR (MDRD) 13 (>60) mL/min BUN/Creatinine Ratio 14.3 30.0 H (14-18) Glucose 240 H (70-99) mg/dL Calcium 8.2 L (8.5-10.1) mg/dL Magnesium (1.8-2.4) mg/dL Total Bilirubin 0.4 (0.2-1.0) mg/dL AST 12 L (15-37) U/L ALT 15 L (16-63) U/L Alkaline Phosphatase 77 (46-116) U/L Total Protein 6.0 L (6.4-8.2) g/dl Albumin 2.7 L (3.4-5.0) g/dl Globulin 3.3 gm/dL Albumin/Globulin Ratio 0.8 L (1-2) 05/30/21 Range/Units 05:20 WBC (4.23-9.07) K/mm3 RBC (4.63-6.08) M/mm3 Hgb (13.7-17.5) gm/dl Hct (40.1-51.0) % MCV (79.0-92.2) fl MCH (25.7-32.2) pg MCHC (32.2-35.5) g/dl RDW Std Deviation (35.1-43.9) fL Plt Count (163-337) K/mm3 MPV (9.4-12.3) fl Neut % (Auto) (34.0-67.9) % Lymph % (Auto) (21.8-53.1) % [place] % (Auto) (5.3-12.2) % Eos % (Auto) (0.8-7.0) Baso % (Auto) (0.1-1.2) % Neut # (Auto) (1.78-5.38) K/mm3 Lymph # (Auto) (1.32-3.57) K/mm3 [place] # (Auto) (0.30-0.82) K/mm3 Eos # (Auto) (0.04-0.54) K/mm3 Baso # (Auto) (0.01-0.08) K/mm3 Sodium 142 (136-145) mEq/L Potassium 3.7 (3.5-5.1) mEq/L Chloride 108 H (98-107) mEq/L Carbon Dioxide 16 L (21-32) mEq/L Anion Gap 21.7 H (5-15) BUN 118 H (7-18) mg/dL Creatinine 2.6 H D (0.7-1.3) mg/dL Est Cr Clr Drug Dosing 28.33 mL/min Estimated GFR (MDRD) 25 (>60) mL/min BUN/Creatinine Ratio 45.4 H (14-18) Glucose 171 H (70-99) mg/dL Calcium 8.2 L (8.5-10.1) mg/dL Magnesium 1.9 (1.8-2.4) mg/dL Total Bilirubin 0.4 (0.2-1.0) mg/dL AST 19 (15-37) U/L ALT 19 (16-63) U/L Alkaline Phosphatase 71 (46-116) U/L Total Protein 5.6 L (6.4-8.2) g/dl Albumin 2.7 L (3.4-5.0) g/dl Globulin 2.9 gm/dL Albumin/Globulin Ratio 0.9 L (1-2) Med Orders - Current: Current Medications Acetaminophen (Acetaminophen 325 Mg Tab) 650 mg PO Q4H PRN PRN Reason: Pain (Mild 1-3)/fever Albuterol (Albuterol 0.083% 2.5 Mg/3 Ml Neb Soln) 2.5 mg NEB Q2H PRN PRN Reason: Shortness Of Breath/wheezing Benzocaine/Menthol (Benzocaine/Cetylpyridinium/Menthol Lozenge) 1 lozenge MUCMEM Q2H PRN PRN Reason: Sore Throat Last Admin: 05/29/21 22:19 Dose: 1 lozenge Documented by: Heparin Sodium (Porcine) (Heparin Sodium 5,000 Units/Ml Vial) 5,000 units SUBCUT Q12H MEG Last Admin: 05/29/21 20:42 Dose: 5,000 units Documented by: Norepinephrine Bitartrate 4 mg (/ Dextrose/Water) 250 mls @ 7.5 mls/hr IV TITRATE MEG; Protocol Last Titration: 05/30/21 05:11 Dose: 3 mcg/min, 11.25 mls/hr Documented by: Ondansetron HCl (Ondansetron 4 Mg/2 Ml Sdv) 4 mg IV Q6H PRN PRN Reason: Nausea/Vomiting Sodium Bicarbonate (Sodium Bicarbonate 650 Mg Tab) 650 mg PO BID MEG Last Admin: 05/29/21 20:42 Dose: 650 mg Documented by: Sodium Chloride (Sodium Chloride 0.9% 10 Ml Syringe) 10 ml FLUSH ASDIRECTED PRN PRN Reason: Keep Vein Open Last Admin: 05/28/21 16:12 Dose: 10 ml Documented by: Discontinued Medications Albuterol (Albuterol 0.083% 2.5 Mg/3 Ml Neb Soln) 2.5 mg NEB ONETIME ONE Stop: 05/28/21 20:37 Last Admin: 05/28/21 20:49 Dose: 2.5 mg Documented by: Dextrose/Water (50% Dextrose In Water 50 Ml Syringe) 50 ml IVPUSH ASDIRECTED ONE Stop: 05/28/21 20:40 Last Admin: 05/28/21 20:49 Dose: 50 ml Documented by: Hydrocortisone Sodium Succinate (Hydrocortisone Sodium Succinate 100 Mg/2 Ml Sdv) 100 mg IVPUSH ONETIME ONE Stop: 05/28/21 18:22 Last Admin: 05/28/21 18:27 Dose: 100 mg Documented by: Hydrocortisone Sodium Succinate (Hydrocortisone Sodium Succinate 100 Mg/2 Ml Sdv) 50 mg IVPUSH Q6H MEG Stop: 05/30/21 00:46 Last Admin: 05/30/21 00:41 Dose: 50 mg Documented by: Sodium Chloride (Normal Saline) 1,000 mls @ 999 mls/hr IV NOW STA Stop: 05/28/21 16:10 Last Admin: 05/28/21 16:12 Dose: 999 mls/hr Documented by: Sodium Chloride (Normal Saline) 1,000 mls @ 999 mls/hr IV ONETIME ONE Stop: 05/28/21 17:40 Last Admin: 05/28/21 17:56 Dose: 999 mls/hr Documented by: Sodium Chloride (Normal Saline) 1,000 mls @ 150 mls/hr IV NOW STA Stop: 05/29/21 02:18 Last Admin: 05/28/21 20:03 Dose: 250 mls/hr Documented by: Sodium Chloride (Normal Saline) Confirm Administered Dose 1,000 mls @ as directed .ROUTE .STK-MED ONE Stop: 05/29/21 11:10 Last Admin: 05/29/21 20:00 Dose: Not Given Documented by: Sodium Chloride (Normal Saline) 1,000 mls @ 150 mls/hr IV ONETIME ONE Stop: 05/30/21 06:38 Insulin Human Regular (Insulin Regular, Human 100 Units/Ml 3 Ml Vial) 10 unit IV ONETIME ONE Stop: 05/28/21 20:39 Last Admin: 05/28/21 20:50 Dose: 10 unit Documented by: Potassium Chloride (Potassium Chloride 20 Meq Tab.Er) 40 meq PO ONETIME ONE Stop: 05/29/21 16:07 Last Admin: 05/29/21 20:08 Dose: Not Given Documented by: Potassium Chloride (Potassium Chloride 20 Meq Tab.Er) 40 meq PO ONETIME ONE Stop: 05/29/21 20:08 Last Admin: 05/29/21 20:42 Dose: 40 meq Documented by: Sodium Bicarbonate (Sodium Bicarbonate 8.4% 50 Meq/50 Ml Syringe) 50 meq IVPUSH ONETIME ONE Stop: 05/28/21 20:56 Last Admin: 05/28/21 21:36 Dose: 50 meq Documented by: Sodium Bicarbonate (Sodium Bicarbonate 8.4% 50 Meq/50 Ml Syringe) 50 meq IVPUSH ONETIME ONE Stop: 05/28/21 21:49 Last Admin: 05/28/21 22:06 Dose: 50 meq Documented by: Sodium Polystyrene Sulfonate (Sodium Polystyrene Sulfonate 15 Gm/60 Ml Susp 60 Ml Bot) 15 gm PO ONETIME ONE Stop: 05/28/21 20:36 Last Admin: 05/28/21 20:50 Dose: 15 gm Documented by: - Exam Quality Assessment: No: Supplemental Oxygen, DVT Prophylaxis Central Line Total Time: 0Days 2Hours Urinary Catheter Total Time: 1Days 7Hours General: Alert, Oriented, Cooperative HEENT: Pupils Equal, Pupils Reactive, EOMI, Mucous Membr. Moist/[place] Neck: Supple, Trachea Midline Lungs: Clear to Auscultation, Normal Respiratory Effort Cardiovascular: Regular Rate, Regular Rhythm GI/Abdominal Exam: Normal Bowel Sounds, Soft, Non-Tender, No Distention (Male) Exam: Deferred Back Exam: Normal Inspection, Full Range of Motion Extremities: Normal Inspection, Normal Range of Motion, No Pedal Edema Skin: Warm, Dry, Intact Neurological: No New Focal Deficit, Normal Gait, Normal Speech Psy/Mental Status: Alert, Normal Affect, Normal Mood - Patient Data Lab Results Last 24 hrs: Laboratory Results - last 24 hr 05/28/21 05/29/21 05/30/21 Range/Units 19:18 14:57 05:20 WBC 7.56 (4.23-9.07) K/mm3 RBC 3.28 L (4.63-6.08) M/mm3 Hgb 9.4 L D (13.7-17.5) gm/dl Hct 28.2 L (40.1-51.0) % MCV 86.0 (79.0-92.2) fl MCH 28.7 (25.7-32.2) pg MCHC 33.3 (32.2-35.5) g/dl RDW Std Deviation 50.0 H (35.1-43.9) fL Plt Count 263 D (163-337) K/mm3 MPV 10.7 (9.4-12.3) fl Neut % (Auto) 88.8 H (34.0-67.9) % Lymph % (Auto) 7.1 L (21.8-53.1) % [place] % (Auto) 4.0 L (5.3-12.2) % Eos % (Auto) 0 L (0.8-7.0) Baso % (Auto) 0.0 L (0.1-1.2) % Neut # (Auto) 6.71 H (1.78-5.38) K/mm3 Lymph # (Auto) 0.54 L (1.32-3.57) K/mm3 [place] # (Auto) 0.30 (0.30-0.82) K/mm3 Eos # (Auto) 0.00 L (0.04-0.54) K/mm3 Baso # (Auto) 0.00 L (0.01-0.08) K/mm3 Sodium 138 (136-145) mEq/L Potassium 3.3 L (3.5-5.1) mEq/L Chloride 105 (98-107) mEq/L Carbon Dioxide 15 L (21-32) mEq/L Anion Gap 21.3 H (5-15) BUN 176 H 141 H (7-18) mg/dL Creatinine 4.7 H D (0.7-1.3) mg/dL Est Cr Clr Drug Dosing 15.67 mL/min Estimated GFR (MDRD) 13 (>60) mL/min BUN/Creatinine Ratio 14.3 30.0 H (14-18) Glucose 240 H (70-99) mg/dL Calcium 8.2 L (8.5-10.1) mg/dL Magnesium (1.8-2.4) mg/dL Total Bilirubin 0.4 (0.2-1.0) mg/dL AST 12 L (15-37) U/L ALT 15 L (16-63) U/L Alkaline Phosphatase 77 (46-116) U/L Total Protein 6.0 L (6.4-8.2) g/dl Albumin 2.7 L (3.4-5.0) g/dl Globulin 3.3 gm/dL Albumin/Globulin Ratio 0.8 L (1-2) 05/30/21 Range/Units 05:20 WBC (4.23-9.07) K/mm3 RBC (4.63-6.08) M/mm3 Hgb (13.7-17.5) gm/dl Hct (40.1-51.0) % MCV (79.0-92.2) fl MCH (25.7-32.2) pg MCHC (32.2-35.5) g/dl RDW Std Deviation (35.1-43.9) fL Plt Count (163-337) K/mm3 MPV (9.4-12.3) fl Neut % (Auto) (34.0-67.9) % Lymph % (Auto) (21.8-53.1) % [place] % (Auto) (5.3-12.2) % Eos % (Auto) (0.8-7.0) Baso % (Auto) (0.1-1.2) % Neut # (Auto) (1.78-5.38) K/mm3 Lymph # (Auto) (1.32-3.57) K/mm3 [place] # (Auto) (0.30-0.82) K/mm3 Eos # (Auto) (0.04-0.54) K/mm3 Baso # (Auto) (0.01-0.08) K/mm3 Sodium 142 (136-145) mEq/L Potassium 3.7 (3.5-5.1) mEq/L Chloride 108 H (98-107) mEq/L Carbon Dioxide 16 L (21-32) mEq/L Anion Gap 21.7 H (5-15) BUN 118 H (7-18) mg/dL Creatinine 2.6 H D (0.7-1.3) mg/dL Est Cr Clr Drug Dosing 28.33 mL/min Estimated GFR (MDRD) 25 (>60) mL/min BUN/Creatinine Ratio 45.4 H (14-18) Glucose 171 H (70-99) mg/dL Calcium 8.2 L (8.5-10.1) mg/dL Magnesium 1.9 (1.8-2.4) mg/dL Total Bilirubin 0.4 (0.2-1.0) mg/dL AST 19 (15-37) U/L ALT 19 (16-63) U/L Alkaline Phosphatase 71 (46-116) U/L Total Protein 5.6 L (6.4-8.2) g/dl Albumin 2.7 L (3.4-5.0) g/dl Globulin 2.9 gm/dL Albumin/Globulin Ratio 0.9 L (1-2) Result Diagrams: 05/30/21 05:20 05/30/21 05:20 Sepsis Event Note - Evaluation Sepsis Screening Result: No Definite Risk - Focused Exam Vital Signs: Vital Signs Temp Pulse Resp BP Pulse Ox 05/30/21 07:15 106/70 96 05/30/21 07:14 95 05/30/21 07:01 96 05/30/21 07:00 105/72 97 05/30/21 06:59 92 L 05/30/21 06:45 111/73 93 L 05/30/21 06:44 93 L 05/30/21 06:30 106/81 96 05/30/21 06:29 96 05/30/21 06:15 109/81 96 05/30/21 06:14 95 05/30/21 06:01 96 05/30/21 06:00 107/71 95 05/30/21 05:59 95 05/30/21 05:45 104/77 96 05/30/21 05:44 96 05/30/21 05:30 105/67 97 05/30/21 05:29 98 05/30/21 05:15 112/77 97 05/30/21 05:14 96 05/30/21 05:01 96 05/30/21 05:00 110/84 96 05/30/21 04:59 97 05/30/21 04:45 106/80 97 05/30/21 04:44 97 05/30/21 04:30 83/65 L 97 05/30/21 04:29 97 05/30/21 04:15 103/72 96 05/30/21 04:14 97 05/30/21 04:01 97 05/30/21 04:00 36.3 C 93 16 107/79 96 05/30/21 03:59 96 05/30/21 03:45 124/81 97 05/30/21 03:44 97 05/30/21 03:30 110/76 96 05/30/21 03:29 96 05/30/21 03:15 104/76 96 05/30/21 03:14 95 05/30/21 03:01 97 05/30/21 03:00 113/83 95 05/30/21 02:59 96 05/30/21 02:45 98/78 96 05/30/21 02:44 96 05/30/21 02:30 102/68 97 05/30/21 02:29 97 05/30/21 02:15 88/66 L 94 L 05/30/21 02:14 90 L 05/30/21 02:01 95 05/30/21 02:00 80/60 L 88 L 05/30/21 01:59 89 L 05/30/21 01:45 90/65 91 L 05/30/21 01:44 92 L 05/30/21 01:30 95/64 97 05/30/21 01:29 96 05/30/21 01:15 82/56 L 93 L 05/30/21 01:14 94 L 05/30/21 01:03 80/54 L 90 L 05/30/21 01:02 90 L 05/30/21 01:01 93 L 05/30/21 00:44 83/54 L 92 L 05/30/21 00:43 92 L 05/30/21 00:31 77/57 L 95 05/30/21 00:30 85 L 05/30/21 00:29 69/54 L 93 L 05/30/21 00:28 96 05/30/21 00:14 83/58 L 92 L 05/30/21 00:13 77 L 05/30/21 00:00 36.4 C 92 16 92 L 05/29/21 23:59 82/49 L 90 L 05/29/21 23:58 93 L 05/29/21 23:45 81/48 L 86 L 05/29/21 23:44 88 L 05/29/21 23:30 77/49 L 97 05/29/21 23:29 90 L 05/29/21 23:15 87/56 L 88 L 05/29/21 23:14 94 L 05/29/21 23:01 97 05/29/21 23:00 99/59 L 97 05/29/21 22:59 97 05/29/21 22:45 95/66 97 05/29/21 22:44 97 05/29/21 22:30 105/71 98 05/29/21 22:29 97 05/29/21 22:15 106/84 98 05/29/21 22:14 98 05/29/21 22:01 98 05/29/21 22:00 102/75 99 05/29/21 21:59 100 05/29/21 21:47 99 05/29/21 21:45 112/72 100 05/29/21 21:44 99 05/29/21 21:30 106/72 99 05/29/21 21:29 100 05/29/21 21:19 99/76 99 05/29/21 21:18 99 05/29/21 21:01 98 05/29/21 21:00 110/93 H 98 05/29/21 20:59 99 05/29/21 20:55 115/78 99 05/29/21 20:54 99 05/29/21 20:30 99/68 98 05/29/21 20:29 99 05/29/21 20:02 104/72 100 05/29/21 20:01 99 05/29/21 20:00 36.3 C 97 18 97 - Problem List & Annotations (1) Acute renal failure SNOMED Code(s): 48861217 Code(s): N17.9 - ACUTE KIDNEY FAILURE, UNSPECIFIED Status: Acute Priority: High Current Visit: Yes Qualifiers: Acute renal failure type: unspecified Qualified Code(s): N17.9 - Acute kidney failure, unspecified (2) Adrenal crisis SNOMED Code(s): 065030827, 727735719 Code(s): E27.2 - ADDISONIAN CRISIS Status: Acute Priority: High Current Visit: Yes (3) Hypotension SNOMED Code(s): 93348494 Code(s): I95.9 - HYPOTENSION, UNSPECIFIED Status: Acute Priority: High Current Visit: Yes Qualifiers: Hypotension type: other hypotension type Qualified Code(s): I95.89 - Other hypotension (4) Obstructive nephropathy SNOMED Code(s): 64898858 Code(s): N13.8 - OTHER OBSTRUCTIVE AND REFLUX UROPATHY Status: Acute Priority: High Current Visit: Yes - Problem List Review Problem List Initiated/Reviewed/Updated: Yes - Plan Plan:: 66-year-old with acute renal failure possibly secondary to obstruction with hypotension possibly due to adrenal insufficiency. Acute renal failure Urinary obstruction Patient presents with 2-week history of worsening fatigue and mild cough. Over the last few days he states he has had worsening difficulty in urinating and was unable to urinate standing up. After insertion of the H[place] catheter there is only a few 100 cc of urine, but he has had significant urinary output since and a significant improvement in his renal function. Dr. Martínez, tire setter, has been involved in his care and does believe this is an obstructive nephropathy. He does recommend continuing on sodium bicarb 650 mg twice daily to treat his acidemia. Kidney function has significantly improved with a creatinine of 14.4 decreasing to 4.7 and an estimated GFR of 3 increasing to 13. I suspect this will continue to improve over the next couple of days. Urine output is good. 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 Femoral line was placed last night. This may be due to many months of steroids for his rheumatoid arthritis. He did start feeling tired after he stopped his prednisone 2 to 3 weeks ago. Patient has been given 100 mg of hydrocortisone and 2 doses of hydrocortisone 50 mg. He has 2 more 50 mg doses ordered. Further treatment will need to be determined following his fourth 50 mg dose. We will continue to wean his norepinephrine as tolerated. I suspect he will be able to get off of the norepinephrine in the next 12 hours. Pulmonary nodule Patient will need a follow-up noncontrast CT in 1 year Past medical history of hypertension, Raynaud's disease, rheumatoid arthritis, osteoarthritis Plan Admit to ICU Wean norepinephrine as tolerated Continue bicarb 650 mg twice daily for acidosis secondary to renal failure Hargrove catheter Finish hydrocortisone 50 mg every 6 hours x4 Monitor CBC, CMP, magnesium closely Follow-up on blood cultures Strict I's and O's VTE prophylaxis with heparin CODE STATUS: Full code Disposition: Likely able to discharge in 2 days. 05/30/2021 The patient is a 66-year-old gentleman who will be retained in the ICU secondary to the use of pressors to keep his blood pressure normalized. Have ordered tapering of the norepinephrine to ascertain if the patient is otherwise able to maintain his blood pressure. He is on hydrocortisone for the adrenal insufficiency and this will continue at stress dose. The patient's outpatient steroid use is somewhat confusing and it is unclear how long the patient has been on steroids at times. The patient has a Hargrove catheter in place and this will be maintained due to his obstructive nephropathy. The patient's creatinine has improved from 14 mg/dL to 2.9 mg/dL. Repeat laboratory studies have been ordered. Continue with monitoring of his input and output. He is also anticoagulated with the use of heparin due to his kidney failure. The patient will have his regular diet as tolerated. If the patient is off pressors the patient should be able to be safely moved from ICU status. The patient has been instructed in the use of the incentive spirometer. He has also been recommended to ambulate as he can in the room. The patient should be appropriate for discharge in 1 to 2 days.
[2021-05-30] MEDS: Heparin Sodium 5,000 Units/ML Vial SUBCUT SCH ×2 (08:07→19:45)
[2021-05-30] MEDS: Sodium Bicarbonate 650 MG Tab PO SCH ×2 (08:07→21:39)
[2021-05-30] MEDS: Benzonatate 100 MG Cap PO PRN ×2 (10:27→21:39)
[2021-05-31] MEDS: Norepinephrine 4 MG in Dextrose 5% in Water 246 ML IV SCH ×2 (02:21)
--- NOTE | 2021-05-31 07:04 | PCM.PN ---
- General Info Date of Service: 05/31/21 Admission Dx/Problem (Free Text): Admission Diagnosis/Problem Admission Diagnosis/Problem Hypotension Subjective Update: The patient is a 66-year-old gentleman who was admitted to acute hospitalization on May 29, 2021 due to hypotension and obstructive uropathy. The patient has Hargrove catheter in place. The patient had been on pressors and these were discontinued. The patient has been doing well. He has required oxygen at night likely secondary to sleep apnea. He has no other complaints. He is denied any new pain. Functional Status: Reports: Pain Controlled, Tolerating Diet. Denies: New Symptoms - Review of Systems General: Reports: Weakness HEENT: Reports: No Symptoms Pulmonary: Reports: No Symptoms Cardiovascular: Reports: No Symptoms Gastrointestinal: Reports: No Symptoms Genitourinary: Reports: No Symptoms Musculoskeletal: Reports: No Symptoms Skin: Reports: No Symptoms Neurological: Reports: No Symptoms Psychiatric: Reports: No Symptoms - Patient Data Vitals - Most Recent: Last Vital Signs Temp 36.2 C 05/31/21 04:00 Pulse 89 05/31/21 00:00 Resp 14 05/31/21 04:00 BP 76/52 L 05/31/21 02:00 Pulse Ox 97 05/31/21 06:00 Weight - Most Recent: 86.908 kg I&O - Last 24 Hours: Intake & Output 05/30/21 05/31/21 05/31/21 22:59 06:59 14:59 Intake Total 1315 864 Output Total 765 825 Balance 550 39 Lab Results Last 24 Hours: Laboratory Results - last 24 hr 05/31/21 Range/Units 06:13 WBC 6.46 (4.23-9.07) K/mm3 RBC 3.32 L (4.63-6.08) M/mm3 Hgb 9.6 L (13.7-17.5) gm/dl Hct 28.8 L (40.1-51.0) % MCV 86.7 (79.0-92.2) fl MCH 28.9 (25.7-32.2) pg MCHC 33.3 (32.2-35.5) g/dl RDW Std Deviation 50.8 H (35.1-43.9) fL Plt Count 233 (163-337) K/mm3 MPV 10.3 (9.4-12.3) fl Neut % (Auto) 64.0 (34.0-67.9) % Lymph % (Auto) 25.4 (21.8-53.1) % [place] % (Auto) 9.0 (5.3-12.2) % Eos % (Auto) 1.1 (0.8-7.0) Baso % (Auto) 0.2 (0.1-1.2) % Neut # (Auto) 4.14 (1.78-5.38) K/mm3 Lymph # (Auto) 1.64 (1.32-3.57) K/mm3 [place] # (Auto) 0.58 (0.30-0.82) K/mm3 Eos # (Auto) 0.07 (0.04-0.54) K/mm3 Baso # (Auto) 0.01 (0.01-0.08) K/mm3 Amaury Results Last 24 Hours: Microbiology 05/28/21 16:00 Blood Culture - Preliminary Blood - Venous - Lab Draw 05/28/21 15:30 Blood Culture - Preliminary Blood - Venous Med Orders - Current: Current Medications Acetaminophen (Acetaminophen 325 Mg Tab) 650 mg PO Q4H PRN PRN Reason: Pain (Mild 1-3)/fever Albuterol (Albuterol 0.083% 2.5 Mg/3 Ml Neb Soln) 2.5 mg NEB Q2H PRN PRN Reason: Shortness Of Breath/wheezing Benzocaine/Menthol (Benzocaine/Cetylpyridinium/Menthol Lozenge) 1 lozenge MUCMEM Q2H PRN PRN Reason: Sore Throat Last Admin: 05/29/21 22:19 Dose: 1 lozenge Documented by: Benzonatate (Benzonatate 100 Mg Cap) 100 mg PO Q8H PRN PRN Reason: Cough Last Admin: 05/30/21 21:39 Dose: 100 mg Documented by: Heparin Sodium (Porcine) (Heparin Sodium 5,000 Units/Ml Vial) 5,000 units SUBCUT Q12H MEG Last Admin: 05/30/21 19:45 Dose: 5,000 units Documented by: Norepinephrine Bitartrate 4 mg (/ Dextrose/Water) 250 mls @ 7.5 mls/hr IV TITRATE MEG; Protocol Last Titration: 05/31/21 05:53 Dose: 2 mcg/min, 7.5 mls/hr Documented by: Ondansetron HCl (Ondansetron 4 Mg/2 Ml Sdv) 4 mg IV Q6H PRN PRN Reason: Nausea/Vomiting Sodium Bicarbonate (Sodium Bicarbonate 650 Mg Tab) 650 mg PO BID [facility] Last Admin: 05/30/21 21:39 Dose: 650 mg Documented by: Sodium Chloride (Sodium Chloride 0.9% 10 Ml Syringe) 10 ml FLUSH ASDIRECTED PRN PRN Reason: Keep Vein Open Last Admin: 05/28/21 16:12 Dose: 10 ml Documented by: Discontinued Medications Albuterol (Albuterol 0.083% 2.5 Mg/3 Ml Neb Soln) 2.5 mg NEB ONETIME ONE Stop: 05/28/21 20:37 Last Admin: 05/28/21 20:49 Dose: 2.5 mg Documented by: Dextrose/Water (50% Dextrose In Water 50 Ml Syringe) 50 ml IVPUSH ASDIRECTED ONE Stop: 05/28/21 20:40 Last Admin: 05/28/21 20:49 Dose: 50 ml Documented by: Hydrocortisone Sodium Succinate (Hydrocortisone Sodium Succinate 100 Mg/2 Ml Sdv) 100 mg IVPUSH ONETIME ONE Stop: 05/28/21 18:22 Last Admin: 05/28/21 18:27 Dose: 100 mg Documented by: Hydrocortisone Sodium Succinate (Hydrocortisone Sodium Succinate 100 Mg/2 Ml Sdv) 50 mg IVPUSH Q6H [facility] Stop: 05/30/21 00:46 Last Admin: 05/30/21 00:41 Dose: 50 mg Documented by: Sodium Chloride (Normal Saline) 1,000 mls @ 999 mls/hr IV NOW STA Stop: 05/28/21 16:10 Last Admin: 05/28/21 16:12 Dose: 999 mls/hr Documented by: Sodium Chloride (Normal Saline) 1,000 mls @ 999 mls/hr IV ONETIME ONE Stop: 05/28/21 17:40 Last Admin: 05/28/21 17:56 Dose: 999 mls/hr Documented by: Sodium Chloride (Normal Saline) 1,000 mls @ 150 mls/hr IV NOW STA Stop: 05/29/21 02:18 Last Admin: 05/28/21 20:03 Dose: 250 mls/hr Documented by: Sodium Chloride (Normal Saline) Confirm Administered Dose 1,000 mls @ as directed .ROUTE .STK-MED ONE Stop: 05/29/21 11:10 Last Admin: 05/29/21 20:00 Dose: Not Given Documented by: Sodium Chloride (Normal Saline) 1,000 mls @ 150 mls/hr IV ONETIME ONE Stop: 05/30/21 06:38 Insulin Human Regular (Insulin Regular, Human 100 Units/Ml 3 Ml Vial) 10 unit IV ONETIME ONE Stop: 05/28/21 20:39 Last Admin: 05/28/21 20:50 Dose: 10 unit Documented by: Potassium Chloride (Potassium Chloride 20 Meq Tab.Er) 40 meq PO ONETIME ONE Stop: 05/29/21 16:07 Last Admin: 05/29/21 20:08 Dose: Not Given Documented by: Potassium Chloride (Potassium Chloride 20 Meq Tab.Er) 40 meq PO ONETIME ONE Stop: 05/29/21 20:08 Last Admin: 05/29/21 20:42 Dose: 40 meq Documented by: Sodium Bicarbonate (Sodium Bicarbonate 8.4% 50 Meq/50 Ml Syringe) 50 meq IVPUSH ONETIME ONE Stop: 05/28/21 20:56 Last Admin: 05/28/21 21:36 Dose: 50 meq Documented by: Sodium Bicarbonate (Sodium Bicarbonate 8.4% 50 Meq/50 Ml Syringe) 50 meq IVPUSH ONETIME ONE Stop: 05/28/21 21:49 Last Admin: 05/28/21 22:06 Dose: 50 meq Documented by: Sodium Polystyrene Sulfonate (Sodium Polystyrene Sulfonate 15 Gm/60 Ml Susp 60 Ml Bot) 15 gm PO ONETIME ONE Stop: 05/28/21 20:36 Last Admin: 05/28/21 20:50 Dose: 15 gm Documented by: - Exam Quality Assessment: Supplemental Oxygen, DVT Prophylaxis Central Line Total Time: 0Days 2Hours Urinary Catheter Total Time: 2Days 7Hours General: Alert, Oriented, Cooperative, No Acute Distress HEENT: Pupils Equal, Pupils Reactive, EOMI, Mucous Membr. Moist/[place] Neck: Supple, Trachea Midline Lungs: Clear to Auscultation, Normal Respiratory Effort Cardiovascular: Regular Rate, Regular Rhythm GI/Abdominal Exam: Normal Bowel Sounds, Soft, Non-Tender, No Distention (Male) Exam: Deferred Back Exam: Normal Inspection, Full Range of Motion Extremities: Normal Inspection, No Pedal Edema Skin: Warm, Dry, Intact Neurological: No New Focal Deficit, Normal Gait, Normal Speech Psy/Mental Status: Alert, Normal Affect, Normal Mood - Patient Data Lab Results Last 24 hrs: Laboratory Results - last 24 hr 05/31/21 Range/Units 06:13 WBC 6.46 (4.23-9.07) K/mm3 RBC 3.32 L (4.63-6.08) M/mm3 Hgb 9.6 L (13.7-17.5) gm/dl Hct 28.8 L (40.1-51.0) % MCV 86.7 (79.0-92.2) fl MCH 28.9 (25.7-32.2) pg MCHC 33.3 (32.2-35.5) g/dl RDW Std Deviation 50.8 H (35.1-43.9) fL Plt Count 233 (163-337) K/mm3 MPV 10.3 (9.4-12.3) fl Neut % (Auto) 64.0 (34.0-67.9) % Lymph % (Auto) 25.4 (21.8-53.1) % [place] % (Auto) 9.0 (5.3-12.2) % Eos % (Auto) 1.1 (0.8-7.0) Baso % (Auto) 0.2 (0.1-1.2) % Neut # (Auto) 4.14 (1.78-5.38) K/mm3 Lymph # (Auto) 1.64 (1.32-3.57) K/mm3 [place] # (Auto) 0.58 (0.30-0.82) K/mm3 Eos # (Auto) 0.07 (0.04-0.54) K/mm3 Baso # (Auto) 0.01 (0.01-0.08) K/mm3 Result Diagrams: 05/31/21 06:13 05/31/21 06:13 Amaury Results Last 24 hrs: Microbiology 05/28/21 16:00 Blood Culture - Preliminary Blood - Venous - Lab Draw 05/28/21 15:30 Blood Culture - Preliminary Blood - Venous Sepsis Event Note - Evaluation Sepsis Screening Result: No Definite Risk - Focused Exam Vital Signs: Vital Signs Temp Pulse Resp BP Pulse Ox Pulse Ox 05/31/21 06:00 97 97 05/31/21 04:00 36.2 C 14 05/31/21 03:15 86 L 05/31/21 02:01 88 L 05/31/21 02:00 76/52 L 88 L 05/31/21 01:59 90 L 05/31/21 01:46 83/58 L 96 05/31/21 01:45 96 05/31/21 01:30 78/51 L 89 L 05/31/21 01:29 90 L 05/31/21 01:15 82/53 L 92 L 05/31/21 01:14 90 L 05/31/21 01:01 95 05/31/21 01:00 85/54 L 94 L 05/31/21 00:59 96 05/31/21 00:44 92/62 97 05/31/21 00:43 97 05/31/21 00:29 81/56 L 96 05/31/21 00:28 96 05/31/21 00:14 77/46 L 95 05/31/21 00:13 95 05/31/21 00:00 36.4 C 89 14 95 05/30/21 23:59 89/59 L 95 05/30/21 23:58 96 05/30/21 23:44 79/55 L 95 05/30/21 23:43 88 L 05/30/21 23:30 81/49 L 87 L 05/30/21 23:29 92 L 05/30/21 23:14 94/66 89 L 05/30/21 23:13 77 L 05/30/21 23:00 96 05/30/21 22:59 96/69 91 L 05/30/21 22:58 95 05/30/21 22:45 97/73 96 05/30/21 22:44 96 05/30/21 22:31 95/69 96 05/30/21 22:30 97 05/30/21 22:15 101/79 97 05/30/21 22:14 95 05/30/21 22:01 97 05/30/21 22:00 98/72 97 05/30/21 21:59 97 05/30/21 21:45 122/74 97 05/30/21 21:44 96 05/30/21 21:30 109/80 99 05/30/21 21:29 96 05/30/21 21:15 102/72 95 05/30/21 21:14 96 05/30/21 21:01 96 05/30/21 21:00 98/73 96 05/30/21 20:59 100 05/30/21 20:45 97/73 97 05/30/21 20:44 96 05/30/21 19:56 36.4 C 90 16 05/30/21 19:45 108/77 97 05/30/21 19:44 96 05/30/21 19:30 107/69 94 L 05/30/21 19:29 97 05/30/21 19:15 108/78 96 05/30/21 19:14 97 - Problem List & Annotations (1) Acute renal failure SNOMED Code(s): 38220296 Code(s): N17.9 - ACUTE KIDNEY FAILURE, UNSPECIFIED Status: Acute Priority: High Current Visit: Yes Qualifiers: Acute renal failure type: unspecified Qualified Code(s): N17.9 - Acute kidney failure, unspecified (2) Adrenal crisis SNOMED Code(s): 670394666, 781443121 Code(s): E27.2 - ADDISONIAN CRISIS Status: Acute Priority: High Current Visit: Yes (3) Hypotension SNOMED Code(s): 46226126 Code(s): I95.9 - HYPOTENSION, UNSPECIFIED Status: Acute Priority: High Current Visit: Yes Qualifiers: Hypotension type: other hypotension type Qualified Code(s): I95.89 - Other hypotension (4) Obstructive nephropathy SNOMED Code(s): 28433141 Code(s): N13.8 - OTHER OBSTRUCTIVE AND REFLUX UROPATHY Status: Acute Priority: High Current Visit: Yes - Problem List Review Problem List Initiated/Reviewed/Updated: Yes - My Orders Last 24 Hours: My Active Orders 05/30/21 10:15 Benzonatate [Tessalon Perles] 100 mg PO Q8H PRN 05/31/21 06:13 CMP [COMPREHENSIVE METABOLIC PN,CMP] [CHEM] Routine - Plan Plan:: 66-year-old with acute renal failure possibly secondary to obstruction with hypotension possibly due to adrenal insufficiency. Acute renal failure Urinary obstruction Patient presents with 2-week history of worsening fatigue and mild cough. Over the last few days he states he has had worsening difficulty in urinating and was unable to urinate standing up. After insertion of the Hargrove catheter there is only a few 100 cc of urine, but he has had significant urinary output since and a significant improvement in his renal function. Dr. Martínez, tour director, has been involved in his care and does believe this is an obstructive nephropathy. He does recommend continuing on sodium bicarb 650 mg twice daily to treat his acidemia. Kidney function has significantly improved with a creatinine of 14.4 decreasing to 4.7 and an estimated GFR of 3 increasing to 13. I suspect this will continue to improve over the next couple of days. Urine output is good. 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 Femoral line was placed last night. This may be due to many months of steroids for his rheumatoid arthritis. He did start feeling tired after he stopped his prednisone 2 to 3 weeks ago. Patient has been given 100 mg of hydrocortisone and 2 doses of hydrocortisone 50 mg. He has 2 more 50 mg doses ordered. Further treatment will need to be determined following his fourth 50 mg dose. We will continue to wean his norepinephrine as tolerated. I suspect he will be able to get off of the norepinephrine in the next 12 hours. Pulmonary nodule Patient will need a follow-up noncontrast CT in 1 year Past medical history of hypertension, Raynaud's disease, rheumatoid arthritis, osteoarthritis Plan Admit to ICU Wean norepinephrine as tolerated Continue bicarb 650 mg twice daily for acidosis secondary to renal failure Hargrove catheter Finish hydrocortisone 50 mg every 6 hours x4 Monitor CBC, CMP, magnesium closely Follow-up on blood cultures Strict I's and O's VTE prophylaxis with heparin CODE STATUS: Full code Disposition: Likely able to discharge in 2 days. 05/30/2021 The patient is a 66-year-old gentleman who will be retained in the ICU secondary to the use of pressors to keep his blood pressure normalized. Have ordered tapering of the norepinephrine to ascertain if the patient is otherwise able to maintain his blood pressure. He is on hydrocortisone for the adrenal insufficiency and this will continue at stress dose. The patient's outpatient steroid use is somewhat confusing and it is unclear how long the patient has been on steroids at times. The patient has a Hargrove catheter in place and this will be maintained due to his obstructive nephropathy. The patient's creatinine has improved from 14 mg/dL to 2.9 mg/dL. Repeat laboratory studies have been ordered. Continue with monitoring of his input and output. He is also anticoagulated with the use of heparin due to his kidney failure. The patient will have his regular diet as tolerated. If the patient is off pressors the patient should be able to be safely moved from ICU status. The patient has been instructed in the use of the incentive spirometer. He has also been recommended to ambulate as he can in the room. The patient should be appropriate for discharge in 1 to 2 days. 05/31/2021 The patient is a 66-year-old gentleman who is doing better today. He will remain in ICU if pressors are needed. The patient has been off of pressors and is able to maintain his systolic blood pressure around 100 mmHg. Patient also h as been started on hydrocortisone for his adrenal suppression and this will continue. Patient will likely need to be on hydrocortisone indefinitely. Patient also has been started on midodrine 2.5 mg twice daily as an adjunct to help with his blood pressure. The patient's creatinine had been around 14 mg/dL but has normalized with his BUN still above normal. Repeat laboratory studies have been ordered. The patient is to continue with his current diet as tolerated. He also has DVT prophylaxis with the use of heparin 5000 units subcutaneous daily. PT OT has been ordered for the patient's physical weakness. The patient also has Hargrove catheter in place and overall the patient's obstructive uropathy has improved. The patient will likely need to have a follow-up with urology and nephrology and will likely be discharged with Hargrove catheter. He should be appropriate for discharge in 1 to 2 days.
[2021-05-31] MEDS: Heparin Sodium 5,000 Units/ML Vial SUBCUT SCH ×2 (08:08→20:27)
[2021-05-31] MEDS: Sodium Bicarbonate 650 MG Tab PO SCH ×2 (08:08→20:27)
[2021-05-31] MEDS ORDERED: Potassium Bicarbonate/Cit Ac 10 MEQ Effervescent Tab PO ONE (10:26)
[2021-05-31] MEDS ORDERED: Docusate Sodium 100 MG Cap PO PRN (10:37)
[2021-05-31] MEDS: Midodrine 5 MG Tab PO SCH ×2 (10:44→20:27)
[2021-05-31] MEDS: Benzonatate 100 MG Cap PO PRN (20:42)
[2021-06-01] MEDS: Midodrine 5 MG Tab PO SCH (08:06)
[2021-06-01] MEDS: Heparin Sodium 5,000 Units/ML Vial SUBCUT SCH (08:06)
[2021-06-01] MEDS: Sodium Bicarbonate 650 MG Tab PO SCH (08:06)
[2021-06-01 08:14] VITALS: PULSE 90
--- NOTE | 2021-06-01 08:14 | PCM.PN ---
- Patient Data Vitals - Most Recent: Last Vital Signs Temp 36.1 C 06/01/21 08:13 Pulse 90 06/01/21 08:13 Resp 16 06/01/21 08:13 BP 87/67 L 06/01/21 08:13 Pulse Ox 97 06/01/21 08:13 Weight - Most Recent: 85.593 kg I&O - Last 24 Hours: Intake & Output 05/31/21 06/01/21 06/01/21 22:59 06:59 14:59 Intake Total 920 Output Total 990 790 175 Balance -70 -790 -175 Lab Results Last 24 Hours: Laboratory Results - last 24 hr 06/01/21 06/01/21 Range/Units 04:55 04:55 WBC 5.79 (4.23-9.07) K/mm3 RBC 3.28 L (4.63-6.08) M/mm3 Hgb 9.5 L (13.7-17.5) gm/dl Hct 29.1 L (40.1-51.0) % MCV 88.7 (79.0-92.2) fl MCH 29.0 (25.7-32.2) pg MCHC 32.6 (32.2-35.5) g/dl RDW Std Deviation 52.1 H (35.1-43.9) fL Plt Count 200 (163-337) K/mm3 MPV 10.8 (9.4-12.3) fl Neut % (Auto) 60.0 (34.0-67.9) % Lymph % (Auto) 26.9 (21.8-53.1) % Newton % (Auto) 9.8 (5.3-12.2) % Eos % (Auto) 2.9 (0.8-7.0) Baso % (Auto) 0.2 (0.1-1.2) % Neut # (Auto) 3.47 (1.78-5.38) K/mm3 Lymph # (Auto) 1.56 (1.32-3.57) K/mm3 Newton # (Auto) 0.57 (0.30-0.82) K/mm3 Eos # (Auto) 0.17 (0.04-0.54) K/mm3 Baso # (Auto) 0.01 (0.01-0.08) K/mm3 Sodium 141 (136-145) mEq/L Potassium 3.5 (3.5-5.1) mEq/L Chloride 108 H (98-107) mEq/L Carbon Dioxide 23 (21-32) mEq/L Anion Gap 13.5 (5-15) BUN 50 H D (7-18) mg/dL Creatinine 0.9 (0.7-1.3) mg/dL Est Cr Clr Drug Dosing 81.83 mL/min Estimated GFR (MDRD) > 60 (>60) mL/min BUN/Creatinine Ratio 55.6 H (14-18) Glucose 103 H (70-99) mg/dL Calcium 8.1 L (8.5-10.1) mg/dL Total Bilirubin 0.4 (0.2-1.0) mg/dL AST 18 (15-37) U/L ALT 25 (16-63) U/L Alkaline Phosphatase 62 (46-116) U/L Total Protein 5.4 L (6.4-8.2) g/dl Albumin 2.5 L (3.4-5.0) g/dl Globulin 2.9 gm/dL Albumin/Globulin Ratio 0.9 L (1-2) Med Orders - Current: Current Medications Acetaminophen (Acetaminophen 325 Mg Tab) 650 mg PO Q4H PRN PRN Reason: Pain (Mild 1-3)/fever Albuterol (Albuterol 0.083% 2.5 Mg/3 Ml Neb Soln) 2.5 mg NEB Q2H PRN PRN Reason: Shortness Of Breath/wheezing Benzocaine/Menthol (Benzocaine/Cetylpyridinium/Menthol Lozenge) 1 lozenge MUCMEM Q2H PRN PRN Reason: Sore Throat Last Admin: 05/29/21 22:19 Dose: 1 lozenge Documented by: Benzonatate (Benzonatate 100 Mg Cap) 100 mg PO Q8H PRN PRN Reason: Cough Last Admin: 05/31/21 20:42 Dose: 100 mg Documented by: Docusate Sodium (Docusate Sodium 100 Mg Cap) 200 mg PO Q12H PRN PRN Reason: Constipation Heparin Sodium (Porcine) (Heparin Sodium 5,000 Units/Ml Vial) 5,000 units SUBCUT Q12H MEG Last Admin: 06/01/21 08:06 Dose: 5,000 units Documented by: Norepinephrine Bitartrate 4 mg (/ Dextrose/Water) 250 mls @ 7.5 mls/hr IV TITRATE [facility]; Protocol Last Titration: 05/31/21 09:00 Dose: 0 mcg/min, 0 mls/hr Documented by: Midodrine (Midodrine 5 Mg Tab) 2.5 mg PO BID MEG Last Admin: 06/01/21 08:06 Dose: 2.5 mg Documented by: Ondansetron HCl (Ondansetron 4 Mg/2 Ml Sdv) 4 mg IV Q6H PRN PRN Reason: Nausea/Vomiting Sodium Bicarbonate (Sodium Bicarbonate 650 Mg Tab) 650 mg PO BID MEG Last Admin: 06/01/21 08:06 Dose: 650 mg Documented by: Sodium Chloride (Sodium Chloride 0.9% 10 Ml Syringe) 10 ml FLUSH ASDIRECTED PRN PRN Reason: Keep Vein Open Last Admin: 05/28/21 16:12 Dose: 10 ml Documented by: Discontinued Medications Albuterol (Albuterol 0.083% 2.5 Mg/3 Ml Neb Soln) 2.5 mg NEB ONETIME ONE Stop: 05/28/21 20:37 Last Admin: 05/28/21 20:49 Dose: 2.5 mg Documented by: Dextrose/Water (50% Dextrose In Water 50 Ml Syringe) 50 ml IVPUSH ASDIRECTED ONE Stop: 05/28/21 20:40 Last Admin: 05/28/21 20:49 Dose: 50 ml Documented by: Hydrocortisone Sodium Succinate (Hydrocortisone Sodium Succinate 100 Mg/2 Ml Sdv) 100 mg IVPUSH ONETIME ONE Stop: 05/28/21 18:22 Last Admin: 05/28/21 18:27 Dose: 100 mg Documented by: Hydrocortisone Sodium Succinate (Hydrocortisone Sodium Succinate 100 Mg/2 Ml Sdv) 50 mg IVPUSH Q6H MEG Stop: 05/30/21 00:46 Last Admin: 05/30/21 00:41 Dose: 50 mg Documented by: Sodium Chloride (Normal Saline) 1,000 mls @ 999 mls/hr IV NOW STA Stop: 05/28/21 16:10 Last Admin: 05/28/21 16:12 Dose: 999 mls/hr Documented by: Sodium Chloride (Normal Saline) 1,000 mls @ 999 mls/hr IV ONETIME ONE Stop: 05/28/21 17:40 Last Admin: 05/28/21 17:56 Dose: 999 mls/hr Documented by: Sodium Chloride (Normal Saline) 1,000 mls @ 150 mls/hr IV NOW STA Stop: 05/29/21 02:18 Last Admin: 05/28/21 20:03 Dose: 250 mls/hr Documented by: Sodium Chloride (Normal Saline) Confirm Administered Dose 1,000 mls @ as directed .ROUTE .STK-MED ONE Stop: 05/29/21 11:10 Last Admin: 05/29/21 20:00 Dose: Not Given Documented by: Sodium Chloride (Normal Saline) 1,000 mls @ 150 mls/hr IV ONETIME ONE Stop: 05/30/21 06:38 Insulin Human Regular (Insulin Regular, Human 100 Units/Ml 3 Ml Vial) 10 unit IV ONETIME ONE Stop: 05/28/21 20:39 Last Admin: 05/28/21 20:50 Dose: 10 unit Documented by: Potassium Bicarbonate (Potassium Bicarbonate/Cit Ac 10 Meq Effervescent Tab) 10 meq PO ONETIME ONE Stop: 05/31/21 10:27 Last Admin: 05/31/21 10:44 Dose: 10 meq Documented by: Potassium Chloride (Potassium Chloride 20 Meq Tab.Er) 40 meq PO ONETIME ONE Stop: 05/29/21 16:07 Last Admin: 05/29/21 20:08 Dose: Not Given Documented by: Potassium Chloride (Potassium Chloride 20 Meq Tab.Er) 40 meq PO ONETIME ONE Stop: 05/29/21 20:08 Last Admin: 05/29/21 20:42 Dose: 40 meq Documented by: Sodium Bicarbonate (Sodium Bicarbonate 8.4% 50 Meq/50 Ml Syringe) 50 meq IVPUSH ONETIME ONE Stop: 05/28/21 20:56 Last Admin: 05/28/21 21:36 Dose: 50 meq Documented by: Sodium Bicarbonate (Sodium Bicarbonate 8.4% 50 Meq/50 Ml Syringe) 50 meq IVPUSH ONETIME ONE Stop: 05/28/21 21:49 Last Admin: 05/28/21 22:06 Dose: 50 meq Documented by: Sodium Polystyrene Sulfonate (Sodium Polystyrene Sulfonate 15 Gm/60 Ml Susp 60 Ml Bot) 15 gm PO ONETIME ONE Stop: 05/28/21 20:36 Last Admin: 05/28/21 20:50 Dose: 15 gm Documented by: - Exam Central Line Total Time: 2Days 10Hours Urinary Catheter Total Time: 3Days 7Hours - Patient Data Lab Results Last 24 hrs: Laboratory Results - last 24 hr 06/01/21 06/01/21 Range/Units 04:55 04:55 WBC 5.79 (4.23-9.07) K/mm3 RBC 3.28 L (4.63-6.08) M/mm3 Hgb 9.5 L (13.7-17.5) gm/dl Hct 29.1 L (40.1-51.0) % MCV 88.7 (79.0-92.2) fl MCH 29.0 (25.7-32.2) pg MCHC 32.6 (32.2-35.5) g/dl RDW Std Deviation 52.1 H (35.1-43.9) fL Plt Count 200 (163-337) K/mm3 MPV 10.8 (9.4-12.3) fl Neut % (Auto) 60.0 (34.0-67.9) % Lymph % (Auto) 26.9 (21.8-53.1) % Newton % (Auto) 9.8 (5.3-12.2) % Eos % (Auto) 2.9 (0.8-7.0) Baso % (Auto) 0.2 (0.1-1.2) % Neut # (Auto) 3.47 (1.78-5.38) K/mm3 Lymph # (Auto) 1.56 (1.32-3.57) K/mm3 [place] # (Auto) 0.57 (0.30-0.82) K/mm3 Eos # (Auto) 0.17 (0.04-0.54) K/mm3 Baso # (Auto) 0.01 (0.01-0.08) K/mm3 Sodium 141 (136-145) mEq/L Potassium 3.5 (3.5-5.1) mEq/L Chloride 108 H (98-107) mEq/L Carbon Dioxide 23 (21-32) mEq/L Anion Gap 13.5 (5-15) BUN 50 H D (7-18) mg/dL Creatinine 0.9 (0.7-1.3) mg/dL Est Cr Clr Drug Dosing 81.83 mL/min Estimated GFR (MDRD) > 60 (>60) mL/min BUN/Creatinine Ratio 55.6 H (14-18) Glucose 103 H (70-99) mg/dL Calcium 8.1 L (8.5-10.1) mg/dL Total Bilirubin 0.4 (0.2-1.0) mg/dL AST 18 (15-37) U/L ALT 25 (16-63) U/L Alkaline Phosphatase 62 (46-116) U/L Total Protein 5.4 L (6.4-8.2) g/dl Albumin 2.5 L (3.4-5.0) g/dl Globulin 2.9 gm/dL Albumin/Globulin Ratio 0.9 L (1-2) Result Diagrams: 06/01/21 04:55 06/01/21 04:55 Sepsis Event Note - Evaluation Sepsis Screening Result: No Definite Risk - Focused Exam Vital Signs: Vital Signs Temp Pulse Resp BP Pulse Ox 06/01/21 08:13 36.1 C 90 16 87/67 L 97 06/01/21 04:00 36.3 C 97 16 100/67 95 06/01/21 00:00 36.3 C 97 16 110/72 95 - Problem List & Annotations (1) Acute renal failure SNOMED Code(s): 36913606 Code(s): N17.9 - ACUTE KIDNEY FAILURE, UNSPECIFIED Status: Acute Priority: High Current Visit: Yes Qualifiers: Acute renal failure type: unspecified Qualified Code(s): N17.9 - Acute kidney failure, unspecified (2) Adrenal crisis SNOMED Code(s): 198196650, 540961188 Code(s): E27.2 - ADDISONIAN CRISIS Status: Acute Priority: High Current Visit: Yes (3) Hypotension SNOMED Code(s): 22782883 Code(s): I95.9 - HYPOTENSION, UNSPECIFIED Status: Acute Priority: High Current Visit: Yes Qualifiers: Hypotension type: other hypotension type Qualified Code(s): I95.89 - Other hypotension (4) Obstructive nephropathy SNOMED Code(s): 68290929 Code(s): N13.8 - OTHER OBSTRUCTIVE AND REFLUX UROPATHY Status: Acute Priority: High Current Visit: Yes - My Orders Last 24 Hours: My Active Orders 05/31/21 09:00 Midodrine 2.5 mg PO BID 05/31/21 10:35 PT Evaluation and Treatment [CONS] Routine 05/31/21 10:36 OT Evaluation and Treatment [CONS] Routine 05/31/21 10:37 Docusate Sodium [Colace] 200 mg PO Q12H PRN - Plan Plan:: 66-year-old with acute renal failure possibly secondary to obstruction with hypotension possibly due to adrenal insufficiency. Acute renal failure Urinary obstruction Patient presents with 2-week history of worsening fatigue and mild cough. Over the last few days he states he has had worsening difficulty in urinating and was unable to urinate standing up. After insertion of the Hargrove catheter there is only a few 100 cc of urine, but he has had significant urinary output since and a significant improvement in his renal function. Dr. Martínez, hospice entrance attendant, has been involved in his care and does believe this is an obstructive nephropathy. He does recommend continuing on sodium bicarb 650 mg twice daily to treat his acidemia. Kidney function has significantly improved with a creatinine of 14.4 decreasing to 4.7 and an estimated GFR of 3 increasing to 13. I suspect this will continue to improve over the next couple of days. Urine output is good. 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 Femoral line was placed last night. This may be due to many months of steroids for his rheumatoid arthritis. He did start feeling tired after he stopped his prednisone 2 to 3 weeks ago. Patient has been given 100 mg of hydrocortisone and 2 doses of hydrocortisone 50 mg. He has 2 more 50 mg doses ordered. Further treatment will need to be determined following his fourth 50 mg dose. We will continue to wean his norepinephrine as tolerated. I suspect he will be able to get off of the norepinephrine in the next 12 hours. Pulmonary nodule Patient will need a follow-up noncontrast CT in 1 year Past medical history of hypertension, Raynaud's disease, rheumatoid arthritis, osteoarthritis Plan Admit to ICU Wean norepinephrine as tolerated Continue bicarb 650 mg twice daily for acidosis secondary to renal failure Hargrove catheter Finish hydrocortisone 50 mg every 6 hours x4 Monitor CBC, CMP, magnesium closely Follow-up on blood cultures Strict I's and O's VTE prophylaxis with heparin CODE STATUS: Full code Disposition: Likely able to discharge in 2 days. 05/30/2021 The patient is a 66-year-old gentleman who will be retained in the ICU secondary to the use of pressors to keep his blood pressure normalized. Have ordered tapering of the norepinephrine to ascertain if the patient is otherwise able to maintain his blood pressure. He is on hydrocortisone for the adrenal insufficiency and this will continue at stress dose. The patient's outpatient steroid use is somewhat confusing and it is unclear how long the patient has been on steroids at times. The patient has a Hargrove catheter in place and this will be maintained due to his obstructive nephropathy. The patient's creatinine has improved from 14 mg/dL to 2.9 mg/dL. Repeat laboratory studies have been ordered. Continue with monitoring of his input and output. He is also anticoagulated with the use of heparin due to his kidney failure. The patient will have his regular diet as tolerated. If the patient is off pressors the patient should be able to be safely moved from ICU status. The patient has been instructed in the use of the incentive spirometer. He has also been recommended to ambulate as he can in the room. The patient should be appropriate for discharge in 1 to 2 days. 05/31/2021 The patient is a 66-year-old gentleman who is doing better today. He will remain in ICU if pressors are needed. The patient has been off of pressors and is able to maintain his systolic blood pressure around 100 mmHg. Patient also has been started on hydrocortisone for his adrenal suppression and this will continue. Patient will likely need to be on hydrocortisone indefinitely. Patient also has been started on midodrine 2.5 mg twice daily as an adjunct to help with his blood pressure. The patient's creatinine had been around 14 mg/dL but has normalized with his BUN still above normal. Repeat laboratory studies have been ordered. The patient is to continue with his current diet as tolerated. He also has DVT prophylaxis with the use of heparin 5000 units subcutaneous daily. PT OT has been ordered for the patient's physical weakness. The patient also has Hargrove catheter in place and overall the patient's obstructive uropathy has improved. The patient will likely need to have a follow-up with urology and nephrology and will likely be discharged with Hargrove catheter. He should be appropriate for discharge in 1 to 2 days.
--- NOTE | 2021-06-01 11:59 | PCM.DCSUM1 ---
Discharge Summary - Hospital Course Diagnosis: Stroke: No - Discharge Data Discharge Disposition: Home, Self-Care 01 Condition: Good - Referral to Home Health Primary Care Physician: Celestina Christiansen NP - Discharge Diagnosis/Problem(s) (1) Acute renal failure SNOMED Code(s): 47100807 ICD Code: N17.9 - ACUTE KIDNEY FAILURE, UNSPECIFIED Status: Resolved Priority: High Current Visit: Yes Qualifiers: Acute renal failure type: with acute tubular necrosis Qualified Code(s): N17.0 - Acute kidney failure with tubular necrosis (2) Adrenal crisis SNOMED Code(s): 649994589, 148682584 ICD Code: E27.2 - ADDISONIAN CRISIS Status: Chronic Priority: High Current Visit: Yes (3) Hypotension SNOMED Code(s): 47233962 ICD Code: I95.9 - HYPOTENSION, UNSPECIFIED Status: Chronic Priority: High Current Visit: Yes Qualifiers: Hypotension type: other hypotension type Qualified Code(s): I95.89 - Other hypotension (4) Obstructive nephropathy SNOMED Code(s): 23351902 ICD Code: N13.8 - OTHER OBSTRUCTIVE AND REFLUX UROPATHY Status: Resolved Priority: High Current Visit: Yes - Patient Summary/Data Consults: Consultations 05/31/21 10:35 PT Evaluation and Treatment [CONS] Routine 05/31/21 10:36 OT Evaluation and Treatment [CONS] Routine - Patient Instructions Diet: Heart Healthy Diet Activity: As Tolerated - Discharge Plan *PRESCRIPTION DRUG MONITORING PROGRAM REVIEWED*: Not Applicable *COPY OF PRESCRIPTION DRUG MONITORING REPORT IN PATIENT SUN: Not Applicable Prescriptions/Med Rec: Hydrocortisone [Cortef] 10 mg PO BIDMEALS #60 tablet Midodrine 2.5 mg PO BID #60 tablet Home Medications: Home Meds sulfaSALAzine [Azulfidine] 500 mg PO BID 05/28/21 [History] Hydrocortisone [Cortef] 10 mg PO BIDMEALS #60 tablet 06/01/21 [Rx] Midodrine 2.5 mg PO BID #60 tablet 06/01/21 [Rx] Oxygen Therapy Mode: Room Air Patient Handouts: Cole's Disease, Hypotension, [id number] Forms: ED Department Discharge Referrals: Celestina Christiansen NP [Primary Care Provider] - - Patient Data Vitals - Most Recent: Last Vital Signs Temp 36.1 C 06/01/21 08:13 Pulse 90 06/01/21 08:13 Resp 16 06/01/21 08:13 BP 87/67 L 06/01/21 08:13 Pulse Ox 97 06/01/21 08:13 Weight - Most Recent: 85.593 kg I&O - Last 24 hours: Intake & Output 05/31/21 06/01/21 06/01/21 22:59 06:59 14:59 Intake Total 920 Output Total 990 790 350 Balance -70 -790 -350 Lab Results - Last 24 hrs: Laboratory Results - last 24 hr 06/01/21 06/01/21 Range/Units 04:55 04:55 WBC 5.79 (4.23-9.07) K/mm3 RBC 3.28 L (4.63-6.08) M/mm3 Hgb 9.5 L (13.7-17.5) gm/dl Hct 29.1 L (40.1-51.0) % MCV 88.7 (79.0-92.2) fl MCH 29.0 (25.7-32.2) pg MCHC 32.6 (32.2-35.5) g/dl RDW Std Deviation 52.1 H (35.1-43.9) fL Plt Count 200 (163-337) K/mm3 MPV 10.8 (9.4-12.3) fl Neut % (Auto) 60.0 (34.0-67.9) % Lymph % (Auto) 26.9 (21.8-53.1) % [place] % (Auto) 9.8 (5.3-12.2) % Eos % (Auto) 2.9 (0.8-7.0) Baso % (Auto) 0.2 (0.1-1.2) % Neut # (Auto) 3.47 (1.78-5.38) K/mm3 Lymph # (Auto) 1.56 (1.32-3.57) K/mm3 [place] # (Auto) 0.57 (0.30-0.82) K/mm3 Eos # (Auto) 0.17 (0.04-0.54) K/mm3 Baso # (Auto) 0.01 (0.01-0.08) K/mm3 Sodium 141 (136-145) mEq/L Potassium 3.5 (3.5-5.1) mEq/L Chloride 108 H (98-107) mEq/L Carbon Dioxide 23 (21-32) mEq/L Anion Gap 13.5 (5-15) BUN 50 H D (7-18) mg/dL Creatinine 0.9 (0.7-1.3) mg/dL Est Cr Clr Drug Dosing 81.83 mL/min Estimated GFR (MDRD) > 60 (>60) mL/min BUN/Creatinine Ratio 55.6 H (14-18) Glucose 103 H (70-99) mg/dL Calcium 8.1 L (8.5-10.1) mg/dL Total Bilirubin 0.4 (0.2-1.0) mg/dL AST 18 (15-37) U/L ALT 25 (16-63) U/L Alkaline Phosphatase 62 (46-116) U/L Total Protein 5.4 L (6.4-8.2) g/dl Albumin 2.5 L (3.4-5.0) g/dl Globulin 2.9 gm/dL Albumin/Globulin Ratio 0.9 L (1-2) Med Orders - Current: Current Medications Acetaminophen (Acetaminophen 325 Mg Tab) 650 mg PO Q4H PRN PRN Reason: Pain (Mild 1-3)/fever Albuterol (Albuterol 0.083% 2.5 Mg/3 Ml Neb Soln) 2.5 mg NEB Q2H PRN PRN Reason: Shortness Of Breath/wheezing Benzocaine/Menthol (Benzocaine/Cetylpyridinium/Menthol Lozenge) 1 lozenge MUCMEM Q2H PRN PRN Reason: Sore Throat Last Admin: 05/29/21 22:19 Dose: 1 lozenge Documented by: Benzonatate (Benzonatate 100 Mg Cap) 100 mg PO Q8H PRN PRN Reason: Cough Last Admin: 05/31/21 20:42 Dose: 100 mg Documented by: Docusate Sodium (Docusate Sodium 100 Mg Cap) 200 mg PO Q12H PRN PRN Reason: Constipation Heparin Sodium (Porcine) (Heparin Sodium 5,000 Units/Ml Vial) 5,000 units SUBCUT Q12H MEG Last Admin: 06/01/21 08:06 Dose: 5,000 units Documented by: Hydrocortisone (Hydrocortisone 10 Mg Tab) 10 mg PO BIDMEALS MEG Norepinephrine Bitartrate 4 mg (/ Dextrose/Water) 250 mls @ 7.5 mls/hr IV TITRATE MEG; Protocol Last Titration: 05/31/21 09:00 Dose: 0 mcg/min, 0 mls/hr Documented by: Midodrine (Midodrine 5 Mg Tab) 2.5 mg PO BID MEG Last Admin: 06/01/21 08:06 Dose: 2.5 mg Documented by: Ondansetron HCl (Ondansetron 4 Mg/2 Ml Sdv) 4 mg IV Q6H PRN PRN Reason: Nausea/Vomiting Sodium Bicarbonate (Sodium Bicarbonate 650 Mg Tab) 650 mg PO BID MEG Last Admin: 06/01/21 08:06 Dose: 650 mg Documented by: Sodium Chloride (Sodium Chloride 0.9% 10 Ml Syringe) 10 ml FLUSH ASDIRECTED PRN PRN Reason: Keep Vein Open Last Admin: 05/28/21 16:12 Dose: 10 ml Documented by: Discontinued Medications Albuterol (Albuterol 0.083% 2.5 Mg/3 Ml Neb Soln) 2.5 mg NEB ONETIME ONE Stop: 05/28/21 20:37 Last Admin: 05/28/21 20:49 Dose: 2.5 mg Documented by: Dextrose/Water (50% Dextrose In Water 50 Ml Syringe) 50 ml IVPUSH ASDIRECTED ONE Stop: 05/28/21 20:40 Last Admin: 05/28/21 20:49 Dose: 50 ml Documented by: Hydrocortisone Sodium Succinate (Hydrocortisone Sodium Succinate 100 Mg/2 Ml Sdv) 100 mg IVPUSH ONETIME ONE Stop: 05/28/21 18:22 Last Admin: 05/28/21 18:27 Dose: 100 mg Documented by: Hydrocortisone Sodium Succinate (Hydrocortisone Sodium Succinate 100 Mg/2 Ml Sdv) 50 mg IVPUSH Q6H MEG Stop: 05/30/21 00:46 Last Admin: 05/30/21 00:41 Dose: 50 mg Documented by: Sodium Chloride (Normal Saline) 1,000 mls @ 999 mls/hr IV NOW STA Stop: 05/28/21 16:10 Last Admin: 05/28/21 16:12 Dose: 999 mls/hr Documented by: Sodium Chloride (Normal Saline) 1,000 mls @ 999 mls/hr IV ONETIME ONE Stop: 05/28/21 17:40 Last Admin: 05/28/21 17:56 Dose: 999 mls/hr Documented by: Sodium Chloride (Normal Saline) 1,000 mls @ 150 mls/hr IV NOW STA Stop: 05/29/21 02:18 Last Admin: 05/28/21 20:03 Dose: 250 mls/hr Documented by: Sodium Chloride (Normal Saline) Confirm Administered Dose 1,000 mls @ as directed .ROUTE .STK-MED ONE Stop: 05/29/21 11:10 Last Admin: 05/29/21 20:00 Dose: Not Given Documented by: Sodium Chloride (Normal Saline) 1,000 mls @ 150 mls/hr IV ONETIME ONE Stop: 05/30/21 06:38 Insulin Human Regular (Insulin Regular, Human 100 Units/Ml 3 Ml Vial) 10 unit IV ONETIME ONE Stop: 05/28/21 20:39 Last Admin: 05/28/21 20:50 Dose: 10 unit Documented by: Potassium Bicarbonate (Potassium Bicarbonate/Cit Ac 10 Meq Effervescent Tab) 10 meq PO ONETIME ONE Stop: 05/31/21 10:27 Last Admin: 05/31/21 10:44 Dose: 10 meq Documented by: Potassium Chloride (Potassium Chloride 20 Meq Tab.Er) 40 meq PO ONETIME ONE Stop: 05/29/21 16:07 Last Admin: 05/29/21 20:08 Dose: Not Given Documented by: Potassium Chloride (Potassium Chloride 20 Meq Tab.Er) 40 meq PO ONETIME ONE Stop: 05/29/21 20:08 Last Admin: 05/29/21 20:42 Dose: 40 meq Documented by: Sodium Bicarbonate (Sodium Bicarbonate 8.4% 50 Meq/50 Ml Syringe) 50 meq IVPUSH ONETIME ONE Stop: 05/28/21 20:56 Last Admin: 05/28/21 21:36 Dose: 50 meq Documented by: Sodium Bicarbonate (Sodium Bicarbonate 8.4% 50 Meq/50 Ml Syringe) 50 meq IVPUSH ONETIME ONE Stop: 05/28/21 21:49 Last Admin: 05/28/21 22:06 Dose: 50 meq Documented by: Sodium Polystyrene Sulfonate (Sodium Polystyrene Sulfonate 15 Gm/60 Ml Susp 60 Ml Bot) 15 gm PO ONETIME ONE Stop: 05/28/21 20:36 Last Admin: 05/28/21 20:50 Dose: 15 gm Documented by:
[2021-06-01 14:21] VITALS: BP 103/75
[2021-06-01] MEDS ORDERED: Hydrocortisone 10 MG Tab PO SCH (17:00)
== END 2021-06-01 13:25 | disposition home or self-care (01) | DRG 643 ==
LOC: JD.ED 14:20 → JD.ICU 05-29 17:09
PROVIDERS: ADMIT Family Medicine; ATTEND Family Medicine
DX: E27.2 Addisonian crisis (principal); N17.0 Acute kidney failure with tubular necrosis; N13.8 Other obstructive and reflux uropathy; E87.2 Acidosis; E27.40 Unspecified adrenocortical insufficiency; Z20.822 Contact with and (suspected) exposure to COVID-19; E87.5 Hyperkalemia; I10 Essential (primary) hypertension; Z90.89 Acquired absence of other organs; Z98.890 Other specified postprocedural states; R91.1 Solitary pulmonary nodule; I95.9 Hypotension, unspecified
CPT/HCPCS: 0240U; 36415; 36556; 51702; 71045; 71045-26; 71250; 71250-26; 71275; 71275-26; 80048; 80053; 81001; 82947; 83605; 83735; 83880; 84484; 85025; 85379; 86140; 87040; 93005; 94640; 96365; 96366; 96375; 97162-GP; 99223; 99232; 99238; 99285-25; A9270-GY; J1644; J1720; J1815-GY; J7030; J7060

== ENCOUNTER 2021-06-09 12:35 | Inpatient (IN) | payer MEDICARE, BC ==
--- NOTE | 2021-06-09 13:26 | EDM.PDOC ---
ED HPI GENERAL MEDICAL PROBLEM - General Chief Complaint: Cardiovascular Problem Stated Complaint: LOW BLOOD PRESSURE Time Seen by Provider: 06/09/21 13:19 Source of Information: Reports: Patient, Family () History Limitations: Reports: No Limitations - History of Present Illness INITIAL COMMENTS - FREE TEXT/NARRATIVE: 66-year-old male presents to the ED feeling very weak and lightheaded and having a near syncopal event this morning when he first got up. In the waiting room even seated he was quite pale in appearance and apparently went unresponsive on 2 occasions with slight jerking of his upper extremities combined with reemergence phenomenon. No sign of seizure. Of note the patient states he started new medication Flomax 0.4 mg 2 days ago at bedtime for his prostate. Since then he has not felt well. Of note the patient is lost at least 50 pounds of weight since I last seen him which was 2 years ago or so. Patient denies noting any blood in his stool. States he had a mild diarrhea stool this morning. Denies any abdominal pain that would be suspicious for peptic ulcer disease. Patient states he never went unresponsive completely at home but did twice while seated in the ED. Blood pressure was noted to be very low at 70/38 this morning. Of note the patient was admitted to the hospital here April 28 with low blood pressure and hypoxia. He was sent over from the [facility]. Patient has completed initial COVID-19 vaccinations and September and October of this year and did receive his booster shot on April 26 but was ex posed to COVID-19 illness on April 24 by his daughter. Patient had loss of appetite severe fatigue for several weeks leading up to this appointment. Patient was identified to have a creatinine greater than 14.4 and a BUN of 178 and a GFR reported to be only 3. He was felt to have a combination of prerenal azotemia due to hypotension as well as obstructive uropathy contributing to renal failure. His hemoglobin at that time was 12.8 with hematocrit of 38.1. His potassium was 5.7 due to renal insufficiency and potassium supplements were therefore withheld. Patient had a central line placed in his right femoral vein and was started on Levophed drip in the ED. There was no place to send the patient in terms of admission to hospital due to COVID-19 taking up all of the beds in the state. He was subsequently admitted to our hospital after staying in the ED for 2 days. His creatinine slowly improved as his blood pressure and renal function slowly improved. He was started on midodrine 2.5 mg twice daily by Dr. Jean-Claude Corral hospitalist. Patient remained in hospital until may 01 when he was discharged. 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 He is currently on 10 mg of hydrocortisone twice daily. Of note he is not on fludrocortisone. Onset: Today, Sudden Onset Date: 06/09/21 Onset Time: 06:00 Duration: Hour(s):, Getting Worse Location: Reports: Other (Normalized lightheaded and weakness.) Quality: Reports: Other Severity: Moderate (Recurrent near syncopal events 2 at home and 2 while in the waiting room. Lying flat helps) Improves with: Reports: Other Worsens with: Reports: Other Context: Reports: Other (Orthostatic hypotension after starting Flomax 0.4 mg at bedtime 2 days ago). Denies: Activity (Standing up.), Exercise, Lifting, Sick Contact, Trauma Associated Symptoms: Reports: Loss of Appetite, Malaise, Weakness. 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) (No new medications) - Related Data Allergies Allergy/AdvReac Type Severity Reaction Status Date / Time No Known Allergies Allergy Verified 06/09/21 16:59 Home Meds: Home Meds sulfaSALAzine [Azulfidine] 1,000 mg PO BID 05/28/21 [History] Hydrocortisone [Cortef] 10 mg PO BIDMEALS #60 tablet 06/01/21 [Rx] Midodrine 2.5 mg PO BID #60 tablet 06/01/21 [Rx] Tamsulosin [Flomax] 0.4 mg PO BEDTIME 06/09/21 [History] Past Medical History HEENT History: Reports: Cataract, Hard of Hearing Other HEENT History: has upper dentures, partial denture on bottom, had cataract sx 03/26 and 04/25 Cardiovascular History: Reports: Hypertension Respiratory History: Reports: None Gastrointestinal History: Reports: Hiatal Hernia Other Gastrointestinal History: hernia 10 yrs ago Genitourinary History: Reports: BPH (Obstructive uropathy) Musculoskeletal History: Reports: Back Pain, Chronic, RA Other Neuro History: Raynaud's disease Endocrine/Metabolic History: Reports: Other (See Below) (Patient has been on steroids for over 2 months. The dosage waxes and wanes due to severity of his ulcerative colitis. It is hypothesized that he is steroid-dependent and potentially suffering [place]'s disease) Dermatologic History: Reports: Other (See Below) Other Dermatologic History: dry skin to arms - Infectious Disease History Infectious Disease History: Reports: None - Past Surgical History HEENT Surgical History: Reports: Adenoidectomy, Tonsillectomy GI Surgical History: Reports: None Musculoskeletal Surgical History: Reports: Knee Replacement Other Musculoskeletal Surgeries/Procedures:: Lumbar spine fusion Social & Family History - Family History Family Medical History: No Pertinent Family History - Caffeine Use Caffeine Use: Reports: Soda - Living Situation & Occupation Living situation: Reports: Occupation: Employed ED ROS GENERAL - Review of Systems Review Of Systems: See Below Constitutional: Reports: Malaise, Weakness, Fatigue, Decreased Appetite (For many months.), Weight Loss ( Significant weight loss). Denies: Fever, Chills HEENT: Reports: Other (Frequent scotomata of the last several weeks likely due to low blood pressure) Respiratory: Reports: Shortness of Breath. Denies: Wheezing, Pleuritic Chest Pain, Cough, Sputum, Hemoptysis Cardiovascular: Reports: Blood Pressure Problem, Edema (Mild lower extremities). Denies: Chest Pain, Claudication (Too low.), Dyspnea on Exertion Endocrine: Reports: Fatigue GI/Abdominal: Reports: Decreased Appetite (Significant weight loss over the last 6 months of 50 pounds). Denies: Abdominal Pain : Reports: Other ([place] to have a component of obstructive uropathy and has a Hargrove catheter in place since admission to hospital April 28.) Musculoskeletal: Reports: Neck Pain, Back Pain (Chronic low back pain with previous lumbar surgery) Skin: Reports: Other Neurological: Reports: Dizziness, Difficulty Walking, Weakness. Denies: Confusion (Marked pallor), Numbness, Paresthesia, Seizure, Syncope, Tingling, Tremors, Trouble Speaking, Gait Disturbance, Other Psychiatric: Reports: No Symptoms (Due to getting too lightheaded and dizzy.). Denies: Confusion Hematologic/Lymphatic: Reports: No Symptoms Immunologic: Reports: No Symptoms ED EXAM, GENERAL - Physical Exam Exam: See Below Exam Limited By: No Limitations General Appearance: Alert, Mild Distress, Other (Patient is quite pallid in appearance. We have known each other for many years any new me right away. He is not confused. He states he feels better lying down to dizzy when he tries to sit up or stand up. Blood pressure was 89/60 upon entry to the ED but it was recorded as low as 70/38 in central hospital) Eye Exam: Bilateral Eye: Normal Inspection (He has marked Clinically. pallor of both peripheral margins. Hemoglobin appears to be around 6 or 7) Throat/Mouth: Normal Inspection, Normal Lips, Normal Teeth, Normal Voice Head: Atraumatic, Normocephalic Neck: Normal Inspection, Supple, Non-Tender, Full Range of Motion. No: Lymphadenopathy (L), Lymphadenopathy (R) Respiratory/Chest: No Respiratory Distress, Lungs Clear, Normal Breath Sounds, No Accessory Muscle Use, Chest Non-Tender Cardiovascular: Regular Rate, Rhythm, No Gallop, No JVD, No Rub. No: Normal Peripheral Pulses Peripheral Pulses: 1+: Posterior Tibial (L), Posterior Tibial (R), Dorsalis Pedis (L), Dorsalis Pedis (R), 2+: Carotid (L), Carotid (R) GI/Abdominal: Normal Bowel Sounds, Soft, Non-Tender, No Organomegaly, No Distent ion (Male) Exam: Other (Patient has an indwelling Hargrove catheter.) Back Exam: Other (He hasPatient has chronic low back pain c restricted range of motion particular forward flexion.). No: Full Range of Motion Extremities: Normal Inspection, Normal Range of Motion, Non-Tender. No: No Pedal Edema Neurological: Alert, Oriented, CN II-XII Intact, Normal Cognition Psychiatric: Normal Affect, Normal Mood Skin Exam: Warm, Dry, Intact, Cool, Pallor. No: Normal Color #1 Interpretation EKG Date: 06/09/21 Time: 13:06 Rhythm: Other (Sinus tachycardia) Rate (Beats/Min): 103 [place]: Normal P-Wave: Present QRS: Other (Decreased voltage limb leads. Early R wave transition in V2 consider right ventricular perjury versus septal hypertrophy pattern. Minimal Q waves evident in leads II and aVF less than 25% of the QRS complex and are considered insignificant) ST-T: Other (Nonspecific T wave flattening aVL) QT: Prolonged (Mildly prolonged) EKG Interpretation Comments: Abnormal ECG Course - Vital Signs Last Recorded V/S: Last Vital Signs Temp 36.2 C 06/11/21 05:59 Pulse 101 H 06/11/21 05:59 Resp 19 06/11/21 05:59 BP 121/85 06/11/21 05:59 Pulse Ox 96 06/11/21 05:59 - Orders/Labs/Meds Orders: Medication Orders Acetaminophen (Acetaminophen 325 Mg Tab) 650 mg PO Q4H PRN PRN Reason: Pain (Mild 1-3)/fever Last Admin: 06/10/21 22:51 Dose: 650 mg Documented by: LISA Enoxaparin Sodium (Enoxaparin 40 Mg/0.4 Ml Syringe) 40 mg SUBCUT DAILY [facility] Last Admin: 06/10/21 08:00 Dose: 40 mg Documented by: [facility] Finasteride (Finasteride 5 Mg Tab) 5 mg PO BEDTIME [facility] Last Admin: 06/10/21 20:32 Dose: 5 mg Documented by: LISA Midodrine (Midodrine 5 Mg Tab) 5 mg PO TIDAC [facility] Last Admin: 06/10/21 15:59 Dose: 5 mg Documented by: Admin: 06/10/21 10:39 Dose: 5 mg Documented by: [facility] Sulfasalazine 500 Mg (Tab Ptom) 0 mg PO BID [facility] Last Admin: 06/10/21 20:32 Dose: 1,000 mg Documented by: Admin: 06/10/21 08:03 Dose: 1,000 mg Documented by: [facility] Ondansetron HCl (Ondansetron 4 Mg/2 Ml Sdv) 4 mg IV Q6H PRN PRN Reason: Nausea/Vomiting Prednisone (Prednisone 20 Mg Tab) 20 mg PO Q12H [facility] Last Admin: 06/10/21 18:06 Dose: 20 mg Documented by: Admin: 06/10/21 07:38 Dose: 20 mg Documented by: [facility] Labs: Laboratory Tests 06/09/21 06/09/21 06/09/21 Range/Units 13:18 13:18 13:18 WBC 11.50 H (4.23-9.07) K/mm3 RBC 3.96 L (4.63-6.08) M/mm3 Hgb 11.4 L D (13.7-17.5) gm/dl Hct 34.5 L (40.1-51.0) % MCV 87.1 (79.0-92.2) fl MCH 28.8 (25.7-32.2) pg MCHC 33.0 (32.2-35.5) g/dl RDW Std Deviation 52.9 H (35.1-43.9) fL Plt Count 248 (163-337) K/mm3 MPV 10.7 (9.4-12.3) fl Neut % (Auto) 73.8 H (34.0-67.9) % Lymph % (Auto) 13.5 L (21.8-53.1) % [place] % (Auto) 9.4 (5.3-12.2) % Eos % (Auto) 2.7 (0.8-7.0) Baso % (Auto) 0.3 (0.1-1.2) % Neut # (Auto) 8.50 H (1.78-5.38) K/mm3 Lymph # (Auto) 1.55 (1.32-3.57) K/mm3 [place] # (Auto) 1.08 H (0.30-0.82) K/mm3 Eos # (Auto) 0.31 (0.04-0.54) K/mm3 Baso # (Auto) 0.03 (0.01-0.08) K/mm3 PT 11.5 (9.7-12.0) SECONDS INR 1.04 APTT 28.3 (21.7-31.4) SECONDS Sodium 132 L (136-145) mEq/L Potassium 2.5 L (3.5-5.1) mEq/L Chloride 97 L (98-107) mEq/L Carbon Dioxide 20 L (21-32) mEq/L Anion Gap 17.5 H (5-15) BUN 14 D (7-18) mg/dL Creatinine 1.3 (0.7-1.3) mg/dL Est Cr Clr Drug Dosing TNP Estimated GFR (MDRD) 55 (>60) mL/min BUN/Creatinine Ratio 10.8 L (14-18) Glucose 123 H (70-99) mg/dL Calcium 7.8 L (8.5-10.1) mg/dL Magnesium 1.1 L (1.8-2.4) mg/dL Total Bilirubin 0.3 (0.2-1.0) mg/dL AST 17 (15-37) U/L ALT 16 (16-63) U/L Alkaline Phosphatase 83 (46-116) U/L CK-MB (CK-2) 1.5 (0-3.6) ng/ml Troponin I 0.105 H* (0.00-0.056) ng/mL C-Reactive Protein 4.7 H* (<1.0) mg/dL NT-Pro-B Natriuret Pep (0-125) pg/mL Total Protein 6.3 L (6.4-8.2) g/dl Albumin 2.5 L (3.4-5.0) g/dl Globulin 3.8 gm/dL Albumin/Globulin Ratio 0.7 L (1-2) SARS-CoV-2 RNA ([place]) (NEGATIVE) Blood Type Gel Antibody Screen 06/09/21 06/09/21 06/09/21 Range/Units 13:18 13:18 17:08 WBC (4.23-9.07) K/mm3 RBC (4.63-6.08) M/mm3 Hgb (13.7-17.5) gm/dl Hct (40.1-51.0) % MCV (79.0-92.2) fl MCH (25.7-32.2) pg MCHC (32.2-35.5) g/dl RDW Std Deviation (35.1-43.9) fL Plt Count (163-337) K/mm3 MPV (9.4-12.3) fl Neut % (Auto) (34.0-67.9) % Lymph % (Auto) (21.8-53.1) % [place] % (Auto) (5.3-12.2) % Eos % (Auto) (0.8-7.0) Baso % (Auto) (0.1-1.2) % Neut # (Auto) (1.78-5.38) K/mm3 Lymph # (Auto) (1.32-3.57) K/mm3 [place] # (Auto) (0.30-0.82) K/mm3 Eos # (Auto) (0.04-0.54) K/mm3 Baso # (Auto) (0.01-0.08) K/mm3 PT (9.7-12.0) SECONDS INR APTT (21.7-31.4) SECONDS Sodium (136-145) mEq/L Potassium (3.5-5.1) mEq/L Chloride (98-107) mEq/L Carbon Dioxide (21-32) mEq/L Anion Gap (5-15) BUN (7-18) mg/dL Creatinine (0.7-1.3) mg/dL Est Cr Clr Drug Dosing Estimated GFR (MDRD) (>60) mL/min BUN/Creatinine Ratio (14-18) Glucose (70-99) mg/dL Calcium (8.5-10.1) mg/dL Magnesium (1.8-2.4) mg/dL Total Bilirubin (0.2-1.0) mg/dL AST (15-37) U/L ALT (16-63) U/L Alkaline Phosphatase (46-116) U/L CK-MB (CK-2) (0-3.6) ng/ml Troponin I (0.00-0.056) ng/mL C-Reactive Protein (<1.0) mg/dL NT-Pro-B Natriuret Pep 5404 H (0-125) pg/mL Total Protein (6.4-8.2) g/dl Albumin (3.4-5.0) g/dl Globulin gm/dL Albumin/Globulin Ratio (1-2) SARS-CoV-2 RNA ([place]) Negative (NEGATIVE) Blood Type O POSITIVE Gel Antibody Screen Negative Meds: Medications Generic Name Dose Route Start Last Admin Trade Name Freq PRN Reason Stop Dose Admin Acetaminophen 650 mg 06/09/21 17:33 06/10/21 22:51 Acetaminophen 325 Mg Tab PO 650 mg Q4H PRN Administration Pain (Mild 1-3)/fever Enoxaparin Sodium 40 mg 06/10/21 09:00 06/10/21 08:00 Enoxaparin 40 Mg/0.4 Ml Syringe SUBCUT 40 mg DAILY MEG Administration Finasteride 5 mg 06/10/21 21:00 06/10/21 20:32 Finasteride 5 Mg Tab PO 5 mg BEDTIME MEG Administration Midodrine 5 mg 06/10/21 11:00 06/10/21 15:59 Midodrine 5 Mg Tab PO 5 mg TIDAC MEG Administration Sulfasalazine 500 Mg 0 mg 06/10/21 09:00 06/10/21 20:32 Tab Ptom PO 1,000 mg BID MEG Administration Ondansetron HCl 4 mg 06/09/21 17:33 Ondansetron 4 Mg/2 Ml Sdv IV Q6H PRN Nausea/Vomiting Prednisone 20 mg 06/10/21 07:00 06/10/21 18:06 Prednisone 20 Mg Tab PO 20 mg Q12H MEG Administration Discontinued Medications Generic Name Dose Route Start Last Admin Trade Name Freq PRN Reason Stop Dose Admin Hydrocortisone Sodium Succinate 100 mg 06/09/21 15:03 06/09/21 16:04 Hydrocortisone Sodium Succinate 100 Mg/2 Ml Sdv IVPUSH 06/09/21 15:04 100 mg ONETIME ONE Administration Dextrose/Sodium Chloride 1,000 mls @ 999 mls/hr 06/09/21 13:30 06/09/21 13:30 Dextrose 5%-Normal Saline IV 999 mls/hr ASDIRECTED MEG Administration Potassium Chloride 10 meq/ 100 mls @ 100 mls/hr 06/09/21 14:45 06/09/21 17:39 Premix IV 06/09/21 20:44 Not Given Q1H MEG Magnesium Sulfate 4 gm/ Premix 50 mls @ 12.5 mls/hr 06/09/21 15:01 06/09/21 16:02 IV 06/09/21 19:00 12.5 mls/hr ONETIME ONE Administration Sodium Chloride 1,000 mls @ 75 mls/hr 06/09/21 15:15 06/10/21 05:20 Normal Saline IV 75 mls/hr ASDIRECTED MEG Administration Potassium Chloride 10 meq/ 100 mls @ 100 mls/hr 06/09/21 18:00 06/09/21 20:24 Premix IV 06/09/21 20:59 100 mls/hr Q1H MEG Administration Magnesium Sulfate 2 gm/ Premix 50 mls @ 25 mls/hr 06/10/21 11:30 06/10/21 12:24 IV 06/10/21 13:29 25 mls/hr ONETIME ONE Administration Potassium Phosphate 30 mmole/ 510 mls @ 102 mls/hr 06/10/21 13:30 06/10/21 13:39 Sodium Chloride IV 06/10/21 18:29 102 mls/hr ONETIME ONE Administration Midodrine 5 mg 06/09/21 16:41 06/09/21 17:20 Midodrine 5 Mg Tab PO 06/09/21 16:42 5 mg ONETIME ONE Administration Potassium Chloride 40 meq 06/09/21 22:00 06/09/21 21:32 Potassium Chloride 20 Meq Tab.Er PO 06/09/21 22:01 40 meq ONETIME ONE Administration - Radiology Interpretation Free Text/Narrative:: 66-year-old male presents to the ED with a near syncopal event at home and collapse. He has been feeling lightheaded dizzy and severely fatigued for the last several days. His symptoms worsened over the last 48 hours since he was started on medication Flomax 0.4 mg once daily for suspect prostate hypertrophy. Of note the patient is on midodrine 2.5 mg twice daily for low blood pressure. Patient's blood pressure upon arrival in the ED was 70/38. Patient had a near syncopal event while seated twice while in the waiting room with some jerking of his upper extremities combined with reemergence phenomena. No sustained tonic-clonic movements to suggest seizure. Patient is quite pallid in appearance and anemic clinically with hardly any color to the palms of his hands or his blepharal margins. Patient was recently hospitalized due to obstructive uropathy and has a indwelling Hargrove catheter. He will be for urology follow-up but not until the early days of August 2021. Flomax 0.4 mg started 2 days ago appears to be the culprit in causing severe orthostatic hypotension. Plan he will be given a liter of IV fluids. Routine labs to be collected - Re-Assessments/Exams Free Text/Narrative Re-Assessment/Exam: 06/09/21 13:50: Chest x-ray done portably reveals heart size and mediastinum to appear normal. Small parenchymal density is seen within the left mid to lower lung. This was not appreciated on prior chest CT or chest x-ray and raising the possibility of small area of pneumonia. Patient however has no signs of infection. He denies cough or sputum production. Lungs otherwise appear clear. Bony structures show nothing acute. 06/09/21 14:58 White count is 11.50 with 73.8% neutrophils. Hemoglobin is 11.4 with hematocrit of 34.5 platelet count is 248,000. Sodium is mildly low at 132 with a potassium low at 2.5. Chloride is 97 with a bicarb of 20. Anion gap is 17.5. BUN is 14 with a creatinine of 1.3 and a GFR 55. Marked improvement compared to most recent hospitalization where his creatinine was 14.4. Glucose is 123. Calcium is 7.8. Magnesium is 1.1 very low. Liver function is normal CK-MB is 1.5 troponin I is elevated at 0.105. C-reactive protein is 4.7. BNP is 5404. Total protein is 6.3 with an albumin fraction of 2.5. Patient will be given Lasix 40 mg IV bolus due to CHF. His elevated troponin I believe is secondary to CHF. He is going to require magnesium and potassium supplementation and I am going to give him 100 mg of Solu-Cortef IV since he is steroid-dependent. Is going to require low-dose normal saline infusion to allow potassium infusion intravenously. I will discuss case with on-call hospitalist with a view to admission to the hospital. 06/09/21: 15:40: Dr. Palumbo dropped by the department and we therefore discussed Mr. Norman Hirsch and need to come in to hospital. Patient has hypokalemia of 2.5 and hypomagnesemia of 1.1. I believe that his orthostatic hypotension which is already a problem became much worse after of course starting Flomax 0.4 mg once daily at bedtime for the last 2 nights. This was prescribed by urologist . Patient came into the hospital April 28 with severe renal insufficiency with a creatinine of 14.4 and a GFR of 3. Th is has improved with a creatinine of 1.3 today and a GFR 55. It was hypothesized that the patient suffered prerenal acidemia as well as obstructive uropathy as a cause of his renal failure. I would suggest a trial of removal of Hargrove catheter see if the patient can void on his own volition without need for catheterization. At this time the patient will be tentatively admitted to the intensive care unit once a bed becomes available. Blood pressure has improved to 91/55. It was as high as 98 for a while. O2 sats are 100% room air. Last tablet of Flomax was taken before bedtime last night and has a half-life of 36 hours. He is in heart failure of unclear etiology. It is unclear if an echocardiogram was ever obtained during his most recent hospitalization but certainly needs to be. He is requiring low-dose normal saline infusion both for blood pressure support and to prevent IV potassium from burning so badly. Second IV is for magnesium infusion with 4 g ordered over the next 4 hours. You will likely require a second dose of this. 06/09/21 16:42 bed has not yet become available in the intensive care unit. Blood pressure is currently 91/55 with a heart rate of 97 and a O2 sat of 99% room air. I will give him a dose of midodrine 5 mg p.o. at this time it is my suggestion that he received 5 mg twice daily to 3 times daily to improve his blood pressure. Departure - Departure Time of Disposition: 17:00 Disposition: Admitted As Inpatient 67 Condition: Fair Clinical Impression: Recurrent syncope, Orthostatic hypotension, Steroid dependent, Hypokalemia due to excessive renal loss of potassium, Hypomagnesemia, Hyponatremia Adverse effects of medication Qualifiers: Encounter type: initial encounter Qualified Code(s): T50.905A - Adverse effect of unspecified drugs, medicaments and biological substances, initial encounter Congestive heart failure Qualifiers: Heart failure type: diastolic Heart failure chronicity: acute on chronic Qualified Code(s): I50.33 - Acute on chronic diastolic (congestive) heart failure
[2021-06-09] MEDS ORDERED: Dextrose 5%-0.9% NaCl 1,000 ML IV SCH (13:30)
--- NOTE | 2021-06-09 13:42 | CR ---
Chest: Portable view of the chest was obtained. Comparison: Prior chest CT and chest x-ray performed on 05/28/21. Heart size and mediastinum are normal. Small parenchymal density is seen within the left mid to lower lung. This is not seen on prior chest CT or chest x-ray and raises the possibility of possible small area of pneumonia if patient has infectious symptoms. Lungs otherwise are clear. Bony structures show nothing acute. Impression: 1. Small nodular density. This is not seen on prior chest x-ray or chest CT and may possibly represent small area of pneumonia if patient has infectious symptoms. 2. Nothing acute is otherwise seen. Diagnostic code #3
[2021-06-09] MEDS ORDERED: Magnesium Sulfate/Water 4 GM in Premix Bag 1 BAG IV ONE (15:01)
[2021-06-09] MEDS ORDERED: Hydrocortisone Sodium Succinate 100 MG/2 ML SDV IVPUSH ONE (15:03)
[2021-06-09] MEDS: Sodium Chloride 0.9% 1,000 ML IV SCH (16:00)
[2021-06-09] MEDS: Potassium Chloride 10 MEQ in Premix Bag 1 BAG IV SCH ×6 (16:02→20:24)
[2021-06-09] MEDS ORDERED: Midodrine 5 MG Tab PO ONE (16:41)
[2021-06-09] MEDS ORDERED: Ondansetron 4 MG/2 ML SDV IV PRN (17:33)
[2021-06-09] MEDS ORDERED: Acetaminophen 325 MG Tab PO PRN (17:33)
--- NOTE | 2021-06-09 17:41 | PCM.HP.2 ---
H&P History of Present Illness - General Date of Service: 06/09/21 Admit Problem/Dx: Admission Diagnosis/Problem Admission Diagnosis/Problem Syncope and collapse - History of Present Illness Initial Comments - Free Text/Narative: 66-year-old male who was discharged from the hospital on 06/01/2021 secondary to presumed addisonian crisis, hypotension, obstructive acute kidney failure presents back to the emergency department today with syncope. This morning patient woke up feeling lightheaded and weak and almost had a syncopal episode. When he got to the waiting room he was feeling weak and dizzy and went u nresponsive on 2 occasions with slight jerking of the upper extremities combined with reemergence phenomenon per emergency department notes. There is no seizure activity. When patient was discharged she was discharged with a Hargrove because of a large prostate that was presumed to be causing the obstruction. He was started on Flomax 0.4 mg 2 days ago and has taken it 2 days in a row. When patient was discharged on he was discharged on midodrine 2.5 mg twice a day and hydrocortisone 10 mg twice a day. During last hospitalization his creatinine was as high as 14.4 which did resolve completely dropping to 0.9 on day of discharge. Adrenal crisis was thought to be secondary to steroids for his rheumatoid arthritis. Patient was on a tapering dose of prednisone then was placed on Medrol due to knee pain and also had steroid injection in his knee. Patient was given a liter of IV fluids and hydrocortisone 100 mg in the emergency department. Blood pressures came up nicely and on arrival in the ICU systolic blood pressure was in the upper 90s to 100s. Patient felt well in the ICU without any dizziness or lightheadedness. He had a potassium of 2.5 and magnesium of 1.1 which was actively being corrected. Creatinine did bump up to 1.3 from his discharge of 0.9. proBNP was 5404 and troponin was 0.105. CRP 4.7. Sodium was slightly low at 132 he did have an anion gap of 17.5. - Related Data Allergies/Adverse Reactions: Allergies Allergy/AdvReac Type Severity Reaction Status Date / Time No Known Allergies Allergy Verified 06/09/21 16:59 Home Medications: Home Meds sulfaSALAzine [Azulfidine] 1,000 mg PO BID 05/28/21 [History] Hydrocortisone [Cortef] 10 mg PO BIDMEALS #60 tablet 06/01/21 [Rx] Midodrine 2.5 mg PO BID #60 tablet 06/01/21 [Rx] Tamsulosin [Flomax] 0.4 mg PO BEDTIME 06/09/21 [History] Past Medical History HEENT History: Reports: Cataract, Hard of Hearing Other HEENT History: has upper dentures, partial denture on bottom, had cataract sx 03/26 and 04/25 Cardiovascular History: Reports: Hypertension Respiratory History: Reports: None Gastrointestinal History: Reports: Hiatal Hernia Other Gastrointestinal History: hernia 10 yrs ago Genitourinary History: Reports: BPH (Obstructive uropathy) Other Genitourinary History: Hargrove catheter in place Musculoskeletal History: Reports: Back Pain, Chronic, RA Other Neuro History: Raynaud's disease Endocrine/Metabolic History: Reports: Other (See Below) (Patient has been on steroids for over 2 months. The dosage waxes and wanes due to severity of his ulcerative colitis. 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) Dermatologic History: Reports: Other (See Below) Other Dermatologic History: dry skin to arms - Infectious Disease History Infectious Disease History: Reports: None - Past Surgical History HEENT Surgical History: Reports: Adenoidectomy, Tonsillectomy GI Surgical History: Reports: None Musculoskeletal Surgical History: Reports: Knee Replacement Other Musculoskeletal Surgeries/Procedures:: Lumbar spine fusion Social & Family History - Family History Family Medical History: No Pertinent Family History - Tobacco Use Tobacco Use Status *Q: Never Tobacco User - Caffeine Use Caffeine Use: Reports: None - Recreational Drug Use Recreational Drug Use: No - Living Situation & Occupation Living situation: Reports: Occupation: Employed H&P Review of Systems - Review of Systems: Review Of Systems: Comprehensive ROS is negative, except as noted in HPI. Exam - Exam Exam: See Below - Vital Signs Vital Signs: Last Vital Signs Temp 97 F 06/09/21 13:16 Pulse 98 06/09/21 13:16 Resp 20 06/09/21 13:16 BP 89/60 L 06/09/21 13:16 Pulse Ox 98 06/09/21 13:16 Weight: 188 lb - Exam Quality Assessment: No: Supplemental Oxygen General: Alert, Oriented, 4 HEENT: Conjunctiva Clear, Hearing Intact, Mucosa Moist & [place], Normal Nasal Septum Neck: Supple, Trachea Midline, 2 Lungs: Clear to Auscultation, Normal Respiratory Effort Cardiovascular: Regular Rate, Regular Rhythm GI/Abdominal Exam: Normal Bowel Sounds, Soft, Non-Tender, No Organomegaly, No Distention, No Abnormal Bruit, No Mass Back Exam: Normal Inspection Extremities: Normal Inspection, Normal Range of Motion, Non-Tender, No Pedal Edema, Normal Capillary Refill Skin: Warm, Dry, Intact Neurological: Cranial Nerves Intact Neuro Extensive - Mental Status: Alert, Oriented x3, Normal Mood/Affect, Normal Cognition, Memory Intact Psychiatric: Alert, Normal Affect, Normal Mood - Patient Data Lab Results Last 24 hrs: Laboratory Results - last 24 hr 06/09/21 06/09/21 06/09/21 Range/Units 13:18 13:18 13:18 WBC 11.50 H (4.23-9.07) K/mm3 RBC 3.96 L (4.63-6.08) M/mm3 Hgb 11.4 L D (13.7-17.5) gm/dl Hct 34.5 L (40.1-51.0) % MCV 87.1 (79.0-92.2) fl MCH 28.8 (25.7-32.2) pg MCHC 33.0 (32.2-35.5) g/dl RDW Std Deviation 52.9 H (35.1-43.9) fL Plt Count 248 (163-337) K/mm3 MPV 10.7 (9.4-12.3) fl Neut % (Auto) 73.8 H (34.0-67.9) % Lymph % (Auto) 13.5 L (21.8-53.1) % Tama % (Auto) 9.4 (5.3-12.2) % Eos % (Auto) 2.7 (0.8-7.0) Baso % (Auto) 0.3 (0.1-1.2) % Neut # (Auto) 8.50 H (1.78-5.38) K/mm3 Lymph # (Auto) 1.55 (1.32-3.57) K/mm3 Tama # (Auto) 1.08 H (0.30-0.82) K/mm3 Eos # (Auto) 0.31 (0.04-0.54) K/mm3 Baso # (Auto) 0.03 (0.01-0.08) K/mm3 PT 11.5 (9.7-12.0) SECONDS INR 1.04 APTT 28.3 (21.7-31.4) SECONDS Sodium 132 L (136-145) mEq/L Potassium 2.5 L (3.5-5.1) mEq/L Chloride 97 L (98-107) mEq/L Carbon Dioxide 20 L (21-32) mEq/L Anion Gap 17.5 H (5-15) BUN 14 D (7-18) mg/dL Creatinine 1.3 (0.7-1.3) mg/dL Est Cr Clr Drug Dosing TNP Estimated GFR (MDRD) 55 (>60) mL/min BUN/Creatinine Ratio 10.8 L (14-18) Glucose 123 H (70-99) mg/dL Calcium 7.8 L (8.5-10.1) mg/dL Magnesium 1.1 L (1.8-2.4) mg/dL Total Bilirubin 0.3 (0.2-1.0) mg/dL AST 17 (15-37) U/L ALT 16 (16-63) U/L Alkaline Phosphatase 83 (46-116) U/L CK-MB (CK-2) 1.5 (0-3.6) ng/ml Troponin I 0.105 H* (0.00-0.056) ng/mL C-Reactive Protein 4.7 H* (<1.0) mg/dL NT-Pro-B Natriuret Pep (0-125) pg/mL Total Protein 6.3 L (6.4-8.2) g/dl Albumin 2.5 L (3.4-5.0) g/dl Globulin 3.8 gm/dL Albumin/Globulin Ratio 0.7 L (1-2) Blood Type Gel Antibody Screen 06/09/21 06/09/21 Range/Units 13:18 13:18 WBC (4.23-9.07) K/mm3 RBC (4.63-6.08) M/mm3 Hgb (13.7-17.5) gm/dl Hct (40.1-51.0) % MCV (79.0-92.2) fl MCH (25.7-32.2) pg MCHC (32.2-35.5) g/dl RDW Std Deviation (35.1-43.9) fL Plt Count (163-337) K/mm3 MPV (9.4-12.3) fl Neut % (Auto) (34.0-67.9) % Lymph % (Auto) (21.8-53.1) % Tama % (Auto) (5.3-12.2) % Eos % (Auto) (0.8-7.0) Baso % (Auto) (0.1-1.2) % Neut # (Auto) (1.78-5.38) K/mm3 Lymph # (Auto) (1.32-3.57) K/mm3 Tama # (Auto) (0.30-0.82) K/mm3 Eos # (Auto) (0.04-0.54) K/mm3 Baso # (Auto) (0.01-0.08) K/mm3 PT (9.7-12.0) SECONDS INR APTT (21.7-31.4) SECONDS Sodium (136-145) mEq/L Potassium (3.5-5.1) mEq/L Chloride (98-107) mEq/L Carbon Dioxide (21-32) mEq/L Anion Gap (5-15) BUN (7-18) mg/dL Creatinine (0.7-1.3) mg/dL Est Cr Clr Drug Dosing Estimated GFR (MDRD) (>60) mL/min BUN/Creatinine Ratio (14-18) Glucose (70-99) mg/dL Calcium (8.5-10.1) mg/dL Magnesium (1.8-2.4) mg/dL Total Bilirubin (0.2-1.0) mg/dL AST (15-37) U/L ALT (16-63) U/L Alkaline Phosphatase (46-116) U/L CK-MB (CK-2) (0-3.6) ng/ml Troponin I (0.00-0.056) ng/mL C-Reactive Protein (<1.0) mg/dL NT-Pro-B Natriuret Pep 5404 H (0-125) pg/mL Total Protein (6.4-8.2) g/dl Albumin (3.4-5.0) g/dl Globulin gm/dL Albumin/Globulin Ratio (1-2) Blood Type O POSITIVE Gel Antibody Screen Negative Result Diagrams: 06/10/21 08:15 06/10/21 08:15 Imaging Impressions Last 24 hrs: Chest x-ray showed small nodular density as seen on previous chest x-ray and CT scan. Possibly represents small area of pneumonia. Nothing otherwise seen. Sepsis Event Note - Focused Exam Vital Signs: Vital Signs Temp Pulse Resp BP Pulse Ox 06/09/21 13:16 97 F 98 20 89/60 L 98 - Problem List (1) Syncope SNOMED Code(s): 604963340 ICD Code: R55 - SYNCOPE AND COLLAPSE Status: Acute Current Visit: Yes (2) Hypokalemia SNOMED Code(s): 40930072 ICD Code: E87.6 - HYPOKALEMIA Status: Acute Current Visit: Yes (3) Hyponatremia SNOMED Code(s): 21198196 ICD Code: E87.1 - HYPO-OSMOLALITY AND HYPONATREMIA Status: Acute Current Visit: Yes (4) Hypomagnesemia SNOMED Code(s): 474971010 ICD Code: E83.42 - HYPOMAGNESEMIA Status: Acute Current Visit: Yes (5) Urinary outflow obstruction SNOMED Code(s): 302375209 ICD Code: N13.9 - OBSTRUCTIVE AND REFLUX UROPATHY, UNSPECIFIED Status: Acute Current Visit: Yes (6) Adrenal crisis SNOMED Code(s): 319517938, 723363094 ICD Code: E27.2 - ADDISONIAN CRISIS Status: Chronic Priority: High Current Visit: No (7) Hypotension SNOMED Code(s): 32456385 ICD Code: I95.9 - HYPOTENSION, UNSPECIFIED Status: Chronic Priority: High Current Visit: No Qualifiers: Hypotension type: other hypotension type Qualified Code(s): I95.89 - Other hypotension Problem List Initiated/Reviewed/Updated: Yes Orders Last 24hrs: Active Orders 24 hr Category Date Time Status Admission Status [Patient Status] [ADT] Routine ADT 06/09/21 16:27 Active Oxygen Therapy [RC] PRN Care 06/09/21 17:33 Ordered Up With Assistance [RC] ASDIRECTED Care 06/09/21 17:33 Ordered VTE/DVT Education [RC] PER UNIT ROUTINE Care 06/09/21 17:33 Ordered Vital Signs [RC] Q4H Care 06/09/21 17:33 Ordered Regular Diet [DIET] Diet 06/09/21 Dinner Ordered CORONAVIRUS COVID-19 [place] [MOLEC] Stat Lab 06/09/21 17:08 Ordered PATIENT RETYPE [BBK] Routine Lab 06/09/21 14:32 Received URINALYSIS W/MICROSCOPIC [UA W/MICROSCOPIC] [URIN] Stat Lab 06/09/21 13:17 Ordered Acetaminophen [TylenoL] Med 06/09/21 17:33 Ordered 650 mg PO Q4H PRN Dextrose 5%-0.9% NaCl [Dextrose 5%-Normal Saline] 1,000 Med 06/09/21 13:30 Active ml IV ASDIRECTED Enoxaparin [Lovenox] Med 06/10/21 09:00 Ordered 40 mg SUBCUT DAILY Magnesium Sulfate/Water [Magnesium Sulfate in Water 4 Med 06/09/21 15:01 Active GM/50 ML] 4 gm Premix Bag 1 bag IV ONETIME Ondansetron [Zofran] Med 06/09/21 17:33 Ordered 4 mg IV Q6H PRN Potassium Chloride [KCl in Water 10 MEQ/100 ML] 10 meq Med 06/09/21 17:45 Ordered Premix Bag 1 bag IV Q1H Potassium Chloride [Klor-Con M20] Med 06/09/21 22:00 Once 40 meq PO ONETIME ONE Sodium Chloride 0.9% [Normal Saline] 1,000 ml Med 06/09/21 15:15 Active IV ASDIRECTED sulfaSALAzine Med 06/09/21 21:00 Ordered 1,000 mg PO BID Resuscitation Status Routine Resus Stat 06/09/21 17:33 Ordered Medication Orders Acetaminophen (Acetaminophen 325 Mg Tab) 650 mg PO Q4H PRN PRN Reason: Pain (Mild 1-3)/fever Enoxaparin Sodium (Enoxaparin 40 Mg/0.4 Ml Syringe) 40 mg SUBCUT DAILY MEG Dextrose/Sodium Chloride (Dextrose 5%-Normal Saline) 1,000 mls @ 999 mls/hr IV ASDIRECTED MEG Last Admin: 06/09/21 13:30 Dose: 999 mls/hr Documented by: [email or web address] Magnesium Sulfate 4 gm/ Premix 50 mls @ 12.5 mls/hr IV ONETIME ONE Stop: 06/09/21 19:00 Last Admin: 12/05/21 16:02 Dose: 12.5 mls/hr Documented by: [facility] Sodium Chloride (Normal Saline) 1,000 mls @ 75 mls/hr IV ASDIRECTED [facility] Last Admin: 06/09/21 16:00 Dose: 75 mls/hr Documented by: [facility] Potassium Chloride 10 meq/ (Premix) 100 mls @ 100 mls/hr IV Q1H [facility] Stop: 06/09/21 21:59 Non-Formulary Medication (Sulfasalazine) 1,000 mg PO BID [facility] Ondansetron HCl (Ondansetron 4 Mg/2 Ml Sdv) 4 mg IV Q6H PRN PRN Reason: Nausea/Vomiting Potassium Chloride (Potassium Chloride 20 Meq Tab.Er) 40 meq PO ONETIME ONE Stop: 06/09/21 22:01 Assessment/Plan Comment:: 66-year-old male recently hospitalized with hypotension, thought to be secondary to adrenal crisis, and acute renal failure secondary to urinary outflow obstruction returns to the emergency department with hypotension after starting Flomax. Hypotension Possible adrenal crisis * Syncopal episode in the waiting room x2 with initial blood pressure of 70/38. * Good blood pressure response with 1 L normal saline * Given 100 mg of hydrocortisone IV in the emergency department * Was discharged on June 01 on midodrine 2.5 mg twice daily and hydrocortisone 10 mg twice daily * Started 2 days ago on Flomax 0.4 mg nightly which likely contributed to his hypotension Urinary outflow obstruction * Currently has Hargrove catheter in place * Cannot see urologist until August * Was started on Flomax 0.4 mg nightly by urology * He was admitted at the end of May secondary to outflow obstruction and acute renal failure. Hypokalemia Hypomagnesemia * Potassium 2.5, likely worsened by steroids. * Sodium 132 * Magnesium 1.1 Elevated proBNP and troponin I * Likely secondary to heart strain * Possible mild component of CHF * Patient given Lasix 40 mg in the emergency department * No ST T wave changes of significance History of rheumatoid arthritis * On sulfasalazine Plan * Admit to ICU * Continue IV fluids at 75 mL/h NS overnight * Switched from hydrocortisone to prednisone 20 mg twice daily increase * Midodrine to 5 mg 3 times daily * DC Hargrove and follow closely * DC Flomax * Replenish potassium and magnesium * Continue sulfasalazine * Follow CMP, CBC, mag * VTE prophylaxis with Lovenox * CODE STATUS: Full code - Mortality Measure Prognosis:: Good
[2021-06-09] MEDS ORDERED: Potassium Chloride 20 MEQ Tab.ER PO ONE (22:00)
[2021-06-10] MEDS: Sodium Chloride 0.9% 1,000 ML IV SCH (05:20)
[2021-06-10] MEDS: predniSONE 20 MG Tab PO SCH ×2 (07:38→18:06)
[2021-06-10] MEDS: Enoxaparin 40 MG/0.4 ML Syringe SUBCUT SCH (08:00)
[2021-06-10] MEDS: SULFASALAZINE 500 MG PO SCH ×2 (08:03→20:32)
[2021-06-10] MEDS: Midodrine 5 MG Tab PO SCH ×2 (10:39→15:59)
[2021-06-10] MEDS ORDERED: Magnesium Sulfate/Water 2 GM in Premix Bag 1 BAG IV ONE (11:30)
[2021-06-10] MEDS ORDERED: Potassium Phosphates 30 MMOLE in Sodium Chloride 0.9% 500 ML IV ONE (13:30)
--- NOTE | 2021-06-10 14:55 | PCM.PN ---
- General Info Date of Service: 06/10/21 Admission Dx/Problem (Free Text): Admission Diagnosis/Problem Admission Diagnosis/Problem Syncope and collapse Subjective Update: Norman is feeling much better. Blood pressures have been fairly stable, but still a little low with 1 or 2 in the 80s. Appetite is good. Functional Status: Reports: Pain Controlled - Review of Systems General: Reports: No Symptoms HEENT: Reports: No Symptoms Pulmonary: Reports: No Symptoms Cardiovascular: Reports: No Symptoms Gastrointestinal: Reports: No Symptoms Musculoskeletal: Reports: No Symptoms - Patient Data Vitals - Most Recent: Last Vital Signs Temp 98.1 F 06/10/21 12:00 Pulse 95 06/10/21 14:00 Resp 17 06/10/21 14:00 BP 94/72 06/10/21 14:00 Pulse Ox 99 06/10/21 14:00 Weight - Most Recent: 196 lb 9.6 oz I&O - Last 24 Hours: Intake & Output 06/09/21 06/10/21 06/10/21 22:59 06:59 14:59 Intake Total 545 1801 1600 Output Total 400 875 480 Balance 508 238 3645 Lab Results Last 24 Hours: Laboratory Results - last 24 hr 06/09/21 06/09/21 06/09/21 Range/Units 13:18 17:08 18:40 WBC (4.23-9.07) K/mm3 RBC (4.63-6.08) M/mm3 Hgb (13.7-17.5) gm/dl Hct (40.1-51.0) % MCV (79.0-92.2) fl MCH (25.7-32.2) pg MCHC (32.2-35.5) g/dl RDW Std Deviation (35.1-43.9) fL Plt Count (163-337) K/mm3 MPV (9.4-12.3) fl Neut % (Auto) (34.0-67.9) % Lymph % (Auto) (21.8-53.1) % [place] % (Auto) (5.3-12.2) % Eos % (Auto) (0.8-7.0) Baso % (Auto) (0.1-1.2) % Neut # (Auto) (1.78-5.38) K/mm3 Lymph # (Auto) (1.32-3.57) K/mm3 [place] # (Auto) (0.30-0.82) K/mm3 Eos # (Auto) (0.04-0.54) K/mm3 Baso # (Auto) (0.01-0.08) K/mm3 PT 11.5 (9.7-12.0) SECONDS INR 1.04 APTT 28.3 (21.7-31.4) SECONDS Sodium (136-145) mEq/L Potassium (3.5-5.1) mEq/L Chloride (98-107) mEq/L Carbon Dioxide (21-32) mEq/L Anion Gap (5-15) BUN (7-18) mg/dL Creatinine (0.7-1.3) mg/dL Est Cr Clr Drug Dosing mL/min Estimated GFR (MDRD) (>60) mL/min BUN/Creatinine Ratio (14-18) Glucose (70-99) mg/dL Calcium (8.5-10.1) mg/dL Phosphorus (2.6-4.7) mg/dL Magnesium (1.8-2.4) mg/dL Total Bilirubin (0.2-1.0) mg/dL AST (15-37) U/L ALT (16-63) U/L Alkaline Phosphatase (46-116) U/L Total Protein (6.4-8.2) g/dl Albumin (3.4-5.0) g/dl Globulin gm/dL Albumin/Globulin Ratio (1-2) Prostate Specific Ag (0.1-4.0) ng/mL Urine Color Yellow (Yellow) Urine Appearance Clear (Clear) Urine pH 5.5 (5.0-8.0) Ur Specific [place] <=1.005 (1.005-1.030) Urine Protein Negative (Negative) Urine Glucose (UA) Negative (Negative) Urine Ketones Negative (Negative) Urine Occult Blood 1+ H (Negative) Urine Nitrite Negative (Negative) Urine Bilirubin Negative (Negative) Urine Urobilinogen 0.2 (0.2-1.0) Ur Leukocyte Esterase Negative (Negative) U Hyaline Cast (Auto) 5-10 H (0-5) /lpf Urine RBC 5-10 H (0-5) /hpf Urine WBC 0-5 (0-5) /hpf Ur Epithelial Cells Not seen (0-5) /hpf Urine Bacteria Few (FEW) /hpf Urine Mucus Not seen (FEW) /hpf SARS-CoV-2 RNA ([place]) Negative (NEGATIVE) 06/10/21 06/10/21 06/10/21 Range/Units 08:15 08:15 08:15 WBC 8.18 (4.23-9.07) K/mm3 RBC 3.56 L (4.63-6.08) M/mm3 Hgb 10.2 L (13.7-17.5) gm/dl Hct 31.3 L (40.1-51.0) % MCV 87.9 (79.0-92.2) fl MCH 28.7 (25.7-32.2) pg MCHC 32.6 (32.2-35.5) g/dl RDW Std Deviation 52.4 H (35.1-43.9) fL Plt Count 198 (163-337) K/mm3 MPV 10.1 (9.4-12.3) fl Neut % (Auto) 65.6 (34.0-67.9) % Lymph % (Auto) 23.8 (21.8-53.1) % [place] % (Auto) 7.1 (5.3-12.2) % Eos % (Auto) 3.2 (0.8-7.0) Baso % (Auto) 0.2 (0.1-1.2) % Neut # (Auto) 5.36 (1.78-5.38) K/mm3 Lymph # (Auto) 1.95 (1.32-3.57) K/mm3 [place] # (Auto) 0.58 (0.30-0.82) K/mm3 Eos # (Auto) 0.26 (0.04-0.54) K/mm3 Baso # (Auto) 0.02 (0.01-0.08) K/mm3 PT (9.7-12.0) SECONDS INR APTT (21.7-31.4) SECONDS Sodium 135 L (136-145) mEq/L Potassium 3.5 (3.5-5.1) mEq/L Chloride 102 (98-107) mEq/L Carbon Dioxide 22 (21-32) mEq/L Anion Gap 14.5 (5-15) BUN 8 (7-18) mg/dL Creatinine 0.9 (0.7-1.3) mg/dL Est Cr Clr Drug Dosing 81.83 mL/min Estimated GFR (MDRD) > 60 (>60) mL/min BUN/Creatinine Ratio 8.9 L (14-18) Glucose 88 (70-99) mg/dL Calcium 7.6 L (8.5-10.1) mg/dL Phosphorus 1.8 L (2.6-4.7) mg/dL Magnesium 1.7 L (1.8-2.4) mg/dL Total Bilirubin 0.3 (0.2-1.0) mg/dL AST 10 L (15-37) U/L ALT 16 (16-63) U/L Alkaline Phosphatase 74 (46-116) U/L Total Protein 5.4 L (6.4-8.2) g/dl Albumin 2.4 L (3.4-5.0) g/dl Globulin 3.0 gm/dL Albumin/Globulin Ratio 0.8 L (1-2) Prostate Specific Ag 1.2 (0.1-4.0) ng/mL Urine Color (Yellow) Urine Appearance (Clear) Urine pH (5.0-8.0) Ur Specific [place] (1.005-1.030) Urine Protein (Negative) Urine Glucose (UA) (Negative) Urine Ketones (Negative) Urine Occult Blood (Negative) Urine Nitrite (Negative) Urine Bilirubin (Negative) Urine Urobilinogen (0.2-1.0) Ur Leukocyte Esterase (Negative) U Hyaline Cast (Auto) (0-5) /lpf Urine RBC (0-5) /hpf Urine WBC (0-5) /hpf Ur Epithelial Cells (0-5) /hpf Urine Bacteria (FEW) /hpf Urine Mucus (FEW) /hpf SARS-CoV-2 RNA ([place]) (NEGATIVE) Med Orders - Current: Current Medications Acetaminophen (Acetaminophen 325 Mg Tab) 650 mg PO Q4H PRN PRN Reason: Pain (Mild 1-3)/fever Enoxaparin Sodium (Enoxaparin 40 Mg/0.4 Ml Syringe) 40 mg SUBCUT DAILY MEG Last Admin: 06/10/21 08:00 Dose: 40 mg Documented by: Potassium Phosphate 30 mmole/ (Sodium Chloride) 510 mls @ 102 mls/hr IV ONETIME ONE Stop: 06/10/21 18:29 Last Admin: 06/10/21 13:39 Dose: 102 mls/hr Documented by: Midodrine (Midodrine 5 Mg Tab) 5 mg PO TIDAC [facility] Last Admin: 06/10/21 10:39 Dose: 5 mg Documented by: Sulfasalazine 500 Mg (Tab Ptom) 0 mg PO BID [facility] Last Admin: 06/10/21 08:03 Dose: 1,000 mg Documented by: Ondansetron HCl (Ondansetron 4 Mg/2 Ml Sdv) 4 mg IV Q6H PRN PRN Reason: Nausea/Vomiting Prednisone (Prednisone 20 Mg Tab) 20 mg PO Q12H [facility] Last Admin: 06/10/21 07:38 Dose: 20 mg Documented by: Discontinued Medications Hydrocortisone Sodium Succinate (Hydrocortisone Sodium Succinate 100 Mg/2 Ml Sdv) 100 mg IVPUSH ONETIME ONE Stop: 06/09/21 15:04 Last Admin: 06/09/21 16:04 Dose: 100 mg Documented by: Dextrose/Sodium Chloride (Dextrose 5%-Normal Saline) 1,000 mls @ 999 mls/hr IV ASDIRECTED [facility] Last Admin: 06/09/21 13:30 Dose: 999 mls/hr Documented by: Potassium Chloride 10 meq/ (Premix) 100 mls @ 100 mls/hr IV Q1H [facility] Stop: 06/09/21 20:44 Last Admin: 06/09/21 17:39 Dose: Not Given Documented by: Magnesium Sulfate 4 gm/ Premix 50 mls @ 12.5 mls/hr IV ONETIME ONE Stop: 06/09/21 19:00 Last Admin: 06/09/21 16:02 Dose: 12.5 mls/hr Documented by: Sodium Chloride (Normal Saline) 1,000 mls @ 75 mls/hr IV ASDIRECTED [facility] Last Admin: 06/10/21 05:20 Dose: 75 mls/hr Documented by: Potassium Chloride 10 meq/ (Premix) 100 mls @ 100 mls/hr IV Q1H [facility] Stop: 06/09/21 20:59 Last Admin: 06/09/21 20:24 Dose: 100 mls/hr Documented by: Magnesium Sulfate 2 gm/ Premix 50 mls @ 25 mls/hr IV ONETIME ONE Stop: 06/10/21 13:29 Last Admin: 06/10/21 12:24 Dose: 25 mls/hr Documented by: Midodrine (Midodrine 5 Mg Tab) 5 mg PO ONETIME ONE Stop: 06/09/21 16:42 Last Admin: 06/09/21 17:20 Dose: 5 mg Documented by: Potassium Chloride (Potassium Chloride 20 Meq Tab.Er) 40 meq PO ONETIME ONE Stop: 06/09/21 22:01 Last Admin: 06/09/21 21:32 Dose: 40 meq Documented by: - Exam Quality Assessment: No: Supplemental Oxygen General: Alert, Oriented HEENT: Pupils Equal, Mucous Membr. Moist/[place] Lungs: Normal Respiratory Effort, Crackles (Minimal bibasilar) Cardiovascular: Regular Rhythm, Tachycardia GI/Abdominal Exam: Normal Bowel Sounds, Non-Tender, No Distention Extremities: Normal Inspection, Normal Range of Motion, Non-Tender, No Pedal Edema, Normal Capillary Refill Skin: Warm, Dry, Intact Psy/Mental Status: Alert, Normal Affect, Normal Mood - Patient Data Lab Results Last 24 hrs: Laboratory Results - last 24 hr 06/09/21 06/09/21 06/09/21 Range/Units 13:18 17:08 18:40 WBC (4.23-9.07) K/mm3 RBC (4.63-6.08) M/mm3 Hgb (13.7-17.5) gm/dl Hct (40.1-51.0) % MCV (79.0-92.2) fl MCH (25.7-32.2) pg MCHC (32.2-35.5) g/dl RDW Std Deviation (35.1-43.9) fL Plt Count (163-337) K/mm3 MPV (9.4-12.3) fl Neut % (Auto) (34.0-67.9) % Lymph % (Auto) (21.8-53.1) % [place] % (Auto) (5.3-12.2) % Eos % (Auto) (0.8-7.0) Baso % (Auto) (0.1-1.2) % Neut # (Auto) (1.78-5.38) K/mm3 Lymph # (Auto) (1.32-3.57) K/mm3 [place] # (Auto) (0.30-0.82) K/mm3 Eos # (Auto) (0.04-0.54) K/mm3 Baso # (Auto) (0.01-0.08) K/mm3 PT 11.5 (9.7-12.0) SECONDS INR 1.04 APTT 28.3 (21.7-31.4) SECONDS Sodium (136-145) mEq/L Potassium (3.5-5.1) mEq/L Chloride (98-107) mEq/L Carbon Dioxide (21-32) mEq/L Anion Gap (5-15) BUN (7-18) mg/dL Creatinine (0.7-1.3) mg/dL Est Cr Clr Drug Dosing mL/min Estimated GFR (MDRD) (>60) mL/min BUN/Creatinine Ratio (14-18) Glucose (70-99) mg/dL Calcium (8.5-10.1) mg/dL Phosphorus (2.6-4.7) mg/dL Magnesium (1.8-2.4) mg/dL Total Bilirubin (0.2-1.0) mg/dL AST (15-37) U/L ALT (16-63) U/L Alkaline Phosphatase (46-116) U/L Total Protein (6.4-8.2) g/dl Albumin (3.4-5.0) g/dl Globulin gm/dL Albumin/Globulin Ratio (1-2) Prostate Specific Ag (0.1-4.0) ng/mL Urine Color Yellow (Yellow) Urine Appearance Clear (Clear) Urine pH 5.5 (5.0-8.0) Ur Specific [place] <=1.005 (1.005-1.030) Urine Protein Negative (Negative) Urine Glucose (UA) Negative (Negative) Urine Ketones Negative (Negative) Urine Occult Blood 1+ H (Negative) Urine Nitrite Negative (Negative) Urine Bilirubin Negative (Negative) Urine Urobilinogen 0.2 (0.2-1.0) Ur Leukocyte Esterase Negative (Negative) U Hyaline Cast (Auto) 5-10 H (0-5) /lpf Urine RBC 5-10 H (0-5) /hpf Urine WBC 0-5 (0-5) /hpf Ur Epithelial Cells Not seen (0-5) /hpf Urine Bacteria Few (FEW) /hpf Urine Mucus Not seen (FEW) /hpf SARS-CoV-2 RNA ([place]) Negative (NEGATIVE) 06/10/21 06/10/21 06/10/21 Range/Units 08:15 08:15 08:15 WBC 8.18 (4.23-9.07) K/mm3 RBC 3.56 L (4.63-6.08) M/mm3 Hgb 10.2 L (13.7-17.5) gm/dl Hct 31.3 L (40.1-51.0) % MCV 87.9 (79.0-92.2) fl MCH 28.7 (25.7-32.2) pg MCHC 32.6 (32.2-35.5) g/dl RDW Std Deviation 52.4 H (35.1-43.9) fL Plt Count 198 (163-337) K/mm3 MPV 10.1 (9.4-12.3) fl Neut % (Auto) 65.6 (34.0-67.9) % Lymph % (Auto) 23.8 (21.8-53.1) % [place] % (Auto) 7.1 (5.3-12.2) % Eos % (Auto) 3.2 (0.8-7.0) Baso % (Auto) 0.2 (0.1-1.2) % Neut # (Auto) 5.36 (1.78-5.38) K/mm3 Lymph # (Auto) 1.95 (1.32-3.57) K/mm3 [place] # (Auto) 0.58 (0.30-0.82) K/mm3 Eos # (Auto) 0.26 (0.04-0.54) K/mm3 Baso # (Auto) 0.02 (0.01-0.08) K/mm3 PT (9.7-12.0) SECONDS INR APTT (21.7-31.4) SECONDS Sodium 135 L (136-145) mEq/L Potassium 3.5 (3.5-5.1) mEq/L Chloride 102 (98-107) mEq/L Carbon Dioxide 22 (21-32) mEq/L Anion Gap 14.5 (5-15) BUN 8 (7-18) mg/dL Creatinine 0.9 (0.7-1.3) mg/dL Est Cr Clr Drug Dosing 81.83 mL/min Estimated GFR (MDRD) > 60 (>60) mL/min BUN/Creatinine Ratio 8.9 L (14-18) Glucose 88 (70-99) mg/dL Calcium 7.6 L (8.5-10.1) mg/dL Phosphorus 1.8 L (2.6-4.7) mg/dL Magnesium 1.7 L (1.8-2.4) mg/dL Total Bilirubin 0.3 (0.2-1.0) mg/dL AST 10 L (15-37) U/L ALT 16 (16-63) U/L Alkaline Phosphatase 74 (46-116) U/L Total Protein 5.4 L (6.4-8.2) g/dl Albumin 2.4 L (3.4-5.0) g/dl Globulin 3.0 gm/dL Albumin/Globulin Ratio 0.8 L (1-2) Prostate Specific Ag 1.2 (0.1-4.0) ng/mL Urine Color (Yellow) Urine Appearance (Clear) Urine pH (5.0-8.0) Ur Specific [place] (1.005-1.030) Urine Protein (Negative) Urine Glucose (UA) (Negative) Urine Ketones (Negative) Urine Occult Blood (Negative) Urine Nitrite (Negative) Urine Bilirubin (Negative) Urine Urobilinogen (0.2-1.0) Ur Leukocyte Esterase (Negative) U Hyaline Cast (Auto) (0-5) /lpf Urine RBC (0-5) /hpf Urine WBC (0-5) /hpf Ur Epithelial Cells (0-5) /hpf Urine Bacteria (FEW) /hpf Urine Mucus (FEW) /hpf SARS-CoV-2 RNA ([place]) (NEGATIVE) Result Diagrams: 06/10/21 08:15 06/10/21 08:15 Sepsis Event Note - Evaluation Sepsis Screening Result: No Definite Risk - Focused Exam Vital Signs: Vital Signs Temp Pulse Pulse Resp BP Pulse Ox 06/10/21 14:00 95 17 94/72 99 06/10/21 12:00 98.1 F 92 20 103/73 99 06/10/21 10:00 99 15 91/71 98 06/10/21 08:00 98.3 F 100 16 101/67 100 06/10/21 06:01 92 21 H 99 06/10/21 06:00 18 83/62 L 96 06/10/21 05:00 85 22 H 93 L 06/10/21 04:01 84 20 96 06/10/21 04:00 97.6 F 20 88/69 L 95 06/10/21 03:00 85 18 97 - Problem List & Annotations (1) Syncope SNOMED Code(s): 697998555 Code(s): R55 - SYNCOPE AND COLLAPSE Status: Acute Current Visit: Yes (2) Hypokalemia SNOMED Code(s): 84353524 Code(s): E87.6 - HYPOKALEMIA Status: Acute Current Visit: Yes (3) Hyponatremia SNOMED Code(s): 76727408 Code(s): E87.1 - HYPO-OSMOLALITY AND HYPONATREMIA Status: Acute Current Visit: Yes (4) Hypomagnesemia SNOMED Code(s): 148488821 Code(s): E83.42 - HYPOMAGNESEMIA Status: Acute Current Visit: Yes (5) Urinary outflow obstruction SNOMED Code(s): 386207783 Code(s): N13.9 - OBSTRUCTIVE AND REFLUX UROPATHY, UNSPECIFIED Status: Acute Current Visit: Yes (6) Adrenal crisis SNOMED Code(s): 577250917, 490521381 Code(s): E27.2 - ADDISONIAN CRISIS Status: Chronic Priority: High Current Visit: No (7) Hypotension SNOMED Code(s): 86417366 Code(s): I95.9 - HYPOTENSION, UNSPECIFIED Status: Chronic Priority: High Current Visit: No Qualifiers: Hypotension type: other hypotension type Qualified Code(s): I95.89 - Other hypotension - Problem List Review Problem List Initiated/Reviewed/Updated: Yes - My Orders Last 24 Hours: My Active Orders 06/09/21 Dinner Regular Diet [DIET] 06/09/21 17:33 Oxygen Therapy [RC] PRN Up With Assistance [RC] ASDIRECTED VTE/DVT Education [RC] Vital Signs [RC] Q2HR Acetaminophen [TylenoL] 650 mg PO Q4H PRN Ondansetron [Zofran] 4 mg IV Q6H PRN Resuscitation Status Routine 06/09/21 19:24 Renew/Continue Urinary Catheter [OM.PC] Routine 06/10/21 07:00 predniSONE 20 mg PO Q12H 06/10/21 09:00 Enoxaparin [Lovenox] 40 mg SUBCUT DAILY sulfaSALAzine 0 mg PO BID 06/10/21 09:51 Remove H[place]rove Catheter [Urinary Catheter Removal] [RC] PER UNIT ROUTINE 06/10/21 11:00 Midodrine 5 mg PO TIDAC 06/10/21 13:30 Potassium Phosphates 30 mmole Sodium Chloride 0.9% [Normal Saline] 500 ml IV ONETIME - Plan Plan:: 66-year-old male recently hospitalized with hypotension, thought to be secondary to adrenal crisis, and acute renal failure secondary to urinary outflow obstruction returns to the emergency department with hypotension after starting Flomax. Hypotension Possible adrenal crisis * Syncopal episode in the waiting room x2 with initial blood pressure of 70/38. * Good blood pressure response with 1 L normal saline * Given 100 mg of hydrocortisone IV in the emergency department * Was discharged on June 01 on midodrine 2.5 mg twice daily and hydrocortisone 10 mg twice daily * Started 2 days ago on Flomax 0.4 mg nightly which likely contributed to his hypotension Urinary outflow obstruction * Currently has Hargrove catheter in place * Cannot see urologist until August * Was started on Flomax 0.4 mg nightly by urology * He was admitted at the end of May secondary to outflow obstruction and acute renal failure. Hypokalemia Hypomagnesemia * Potassium 2.5, likely worsened by steroids. * Sodium 132 * Magnesium 1.1 Elevated proBNP and troponin I * Likely secondary to heart strain * Possible mild component of CHF * Patient given Lasix 40 mg in the emergency department * No ST T wave changes of significance History of rheumatoid arthritis * On sulfasalazine 06/10/2021 66-year-old male with chronic steroid use secondary to rheumatoid arthritis presents with hypotension and electrolyte abnormalities. Patient also has urinary outflow obstruction with recent history of acute renal failure. Patient has Hargrove catheter placed secondary to obstruction. Patient's blood pressure has improved and his symptoms are better. Generally partly secondary to stopping Flomax. Midodrine was increased to 5 mg 3 times a day and he is currently on prednisone 20 mg twice a day. Potassium and magnesium are almost replenished with potassium 3.5 and magnesium 1.7. This will be replaced. Phos is low at 1.8 this will also be replaced. Patient does have an elevated proBNP and troponin so we will get an echocardiogram. Hargrove catheter will be removed this morning and we will follow urinary output and bladder scan as appropriate. Patient will also be started on finasteride. Plan will be to get patient discharged within the next couple of days. He will likely be downgraded to medical surgical status later this afternoon. Plan * Admit to ICU * DC IV fluids * Continue prednisone 20 mg twice daily increase * Midodrine to 5 mg 3 times daily * DC Hargrove and follow closely * DC Flomax * Finasteride 5 mg daily * Check PSA prior to starting finasteride * Replenish potassium and magnesium * Continue sulfasalazine * Follow CMP, CBC, mag * VTE prophylaxis with Lovenox * CODE STATUS: Full code
[2021-06-10] MEDS ORDERED: Finasteride 5 MG Tab PO SCH (21:00)
[2021-06-11] MEDS: Midodrine 5 MG Tab PO SCH ×2 (08:00→11:46)
[2021-06-11] MEDS: predniSONE 20 MG Tab PO SCH (08:00)
[2021-06-11] MEDS: Enoxaparin 40 MG/0.4 ML Syringe SUBCUT SCH (08:00)
[2021-06-11] MEDS: SULFASALAZINE 500 MG PO SCH (08:18)
[2021-06-11 10:52] VITALS: BP 103/76
[2021-06-11 11:33] VITALS: PULSE 99
--- NOTE | 2021-06-11 12:22 | PCM.DCSUM1 ---
Discharge Summary - Hospital Course HPI Initial Comments: - History of Present Illness Initial Comments - Free Text/Narative: 66-year-old male who was discharged from the hospital on 06/01/2021 secondary to presumed addisonian crisis, hypotension, obstructive acute kidney failure presents back to the emergency department today with syncope. This morning patient woke up feeling lightheaded and weak and almost had a syncopal episode. When he got to the waiting room he was feeling weak and dizzy and went unresponsive on 2 occasions with slight jerking of the upper extremities combined with reemergence phenomenon per emergency department notes. There is no seizure activity. When patient was discharged she was discharged with a Hargrove because of a large prostate that was presumed to be causing the obstruction. He was started on Flomax 0.4 mg 2 days ago and has taken it 2 days in a row. When patient was discharged on he was discharged on midodrine 2.5 mg twice a day and hydrocortisone 10 mg twice a day. During last hospitalization his creatinine was as high as 14.4 which did resolve completely dropping to 0.9 on day of discharge. Adrenal crisis was thought to be secondary to steroids for his rheumatoid arthritis. Patient was on a tapering dose of pr ednisone then was placed on Medrol due to knee pain and also had steroid injection in his knee. Patient was given a liter of IV fluids and hydrocortisone 100 mg in the emergency department. Blood pressures came up nicely and on arrival in the ICU systolic blood pressure was in the upper 90s to 100s. Patient felt well in the ICU without any dizziness or lightheadedness. He had a potassium of 2.5 and magnesium of 1.1 which was actively being corrected. Creatinine did bump up to 1.3 from his discharge of 0.9. proBNP was 5404 and troponin was 0.105. CRP 4.7. Sodium was slightly low at 132 he did have an anion gap of 17.5. Assessment/Plan Comment:: 66-year-old male recently hospitalized with hypotension, thought to be secondary to adrenal crisis, and acute renal failure secondary to urinary outflow obstruction returns to the emergency department with hypotension after starting Flomax. Hypotension Possible adrenal crisis * Syncopal episode in the waiting room x2 with initial blood pressure of 70/38. * Good blood pressure response with 1 L normal saline * Given 100 mg of hydrocortisone IV in the emergency department * Was discharged on June 01 on midodrine 2.5 mg twice daily and hydrocortisone 10 mg twice daily * Started 2 days ago on Flomax 0.4 mg nightly which likely contributed to his hypotension Urinary outflow obstruction * Currently has Hargrove catheter in place * Cannot see urologist until August * Was started on Flomax 0.4 mg nightly by urology * He was admitted at the end of May secondary to outflow obstruction and acute renal failure. Hypokalemia Hypomagnesemia * Potassium 2.5, likely worsened by steroids. * Sodium 132 * Magnesium 1.1 Elevated proBNP and troponin I * Likely secondary to heart strain * Possible mild component of CHF * Patient given Lasix 40 mg in the emergency department * No ST T wave changes of significance History of rheumatoid arthritis * On sulfasalazine Plan * Admit to ICU * Continue IV fluids at 75 mL/h NS overnight * Switched from hydrocortisone to prednisone 20 mg twice daily increase * Midodrine to 5 mg 3 times daily * DC Hargrove and follow closely * DC Flomax * Replenish potassium and magnesium * Continue sulfasalazine * Follow CMP, CBC, mag * VTE prophylaxis with Lovenox * CODE STATUS: Full code - Mortality Measure Prognosis:: Good Diagnosis: Stroke: No - Discharge Data Discharge Date: 06/11/21 Discharge Disposition: Home, Self-Care 01 Condition: Good - Referral to Home Health Primary Care Physician: Celestina Christiansen NP - Discharge Diagnosis/Problem(s) (1) Syncope SNOMED Code(s): 776515910 ICD Code: R55 - SYNCOPE AND COLLAPSE Status: Acute Current Visit: Yes (2) Hypokalemia SNOMED Code(s): 03371685 ICD Code: E87.6 - HYPOKALEMIA Status: Acute Current Visit: Yes (3) Hyponatremia SNOMED Code(s): 20766601 ICD Code: E87.1 - HYPO-OSMOLALITY AND HYPONATREMIA Status: Acute Current Visit: Yes (4) Hypomagnesemia SNOMED Code(s): 225626690 ICD Code: E83.42 - HYPOMAGNESEMIA Status: Acute Current Visit: Yes (5) Urinary outflow obstruction SNOMED Code(s): 077939562 ICD Code: N13.9 - OBSTRUCTIVE AND REFLUX UROPATHY, UNSPECIFIED Status: Acute Current Visit: Yes (6) Adrenal crisis SNOMED Code(s): 411132594, 647100331 ICD Code: E27.2 - ADDISONIAN CRISIS Status: Chronic Priority: High Current Visit: No (7) Hypotension SNOMED Code(s): 93054990 ICD Code: I95.9 - HYPOTENSION, UNSPECIFIED Status: Chronic Priority: High Current Visit: No Qualifiers: Hypotension type: other hypotension type Qualified Code(s): I95.89 - Other hypotension - Patient Summary/Data Hospital Course: 06/10/2021 66-year-old male with chronic steroid use secondary to rheumatoid arthritis presents with hypotension and electrolyte abnormalities. Patient also has urinary outflow obstruction with recent history of acute renal failure. Patient has Hargrove catheter placed secondary to obstruction. Patient's blood pressure has improved and his symptoms are better. Generally partly secondary to stopping Flomax. Midodrine was increased to 5 mg 3 times a day and he is currently on prednisone 20 mg twice a day. Potassium and magnesium are almost replenished with potassium 3.5 and magnesium 1.7. This will be replaced. Phos is low at 1.8 this will also be replaced. Patient does have an elevated proBNP and troponin so we will get an echocardiogram. Hargrove catheter will be removed this morning and we will follow urinary output and bladder scan as appropriate. Patient will also be started on finasteride. Plan will be to get patient discharged within the next couple of days. He will likely be downgraded to medical surgical status later this afternoon. 06/11/2021ay of discharge 66-year-old male who was previously on chronic prednisone secondary to rheumatoid arthritis presented with hypotension and electrolyte abnormalities. Patient was admitted here at the end of May for hypotension and presumed adrenal crisis. Patient was discharged on hydrocortisone 10 mg twice daily and midodrine 2.5 mg twice daily. Patient was admitted 2 days ago with hypotension into the ICU. Symptoms improved with IV rehydration and midodrine 5 mg twice a day. He also had significant electrolyte abnormalities of hypokalemia and hypomagnesemia which were corrected. Patient was started on prednisone 20 mg twice daily for adrenal replacement and increased his midodrine to 5 mg 3 times daily. Hydrocortisone was stopped. He is symptomatically much improved. Blood pressures are much improved. Orthostatics were negative on day of discharge. Electrolytes have been replaced. Patient also has urinary outflow obstruction. We removed his catheter yesterday to give him a trial, but was unable to empty his bladder. This morning urinary residuals were over 500 mL. Urinary catheter was replaced. He will need to follow-up with urology. Urology has been in contact with patient and his and are expecting a call back from them. Urology will try to get him in on a cancellation basis. Patient also started finasteride 5 mg daily. Baseline PSA was drawn and is 1.2. Patient will need to follow-up with primary care for recheck of his electrolytes and blood pressure. He will also need a very slow taper of his prednisone for the next few months. Plan * Continue prednisone 20 mg twice daily * Midodrine to 5 mg 3 times daily * Hargrove catheter for urinary outflow obstruction * DC Flomax * Finasteride 5 mg daily * Check PSA in 3 months * Continue sulfasalazine * Follow BMP and magnesium levels as outpatient - Patient Instructions Diet: Usual Diet as Tolerated Driving: Do Not Drive Showering/Bathing: May Shower Notify Provider of: Fever Other/Special Instructions: Follow-up with your primary care provider within a week. Follow-up with urology as soon as possible. - Discharge Plan *PRESCRIPTION DRUG MONITORING PROGRAM REVIEWED*: No *COPY OF PRESCRIPTION DRUG MONITORING REPORT IN PATIENT SUN: No Prescriptions/Med Rec: Finasteride 5 mg PO BEDTIME #30 tablet Midodrine 5 mg PO TIDAC #90 tablet predniSONE 20 mg PO Q12H #60 tablet Home Medications: Home Meds sulfaSALAzine [Azulfidine] 1,000 mg PO BID 05/28/21 [History] Finasteride 5 mg PO BEDTIME #30 tablet 06/11/21 [Rx] Midodrine 5 mg PO TIDAC #90 tablet 06/11/21 [Rx] predniSONE 20 mg PO Q12H #60 tablet 06/11/21 [Rx] Oxygen Therapy Mode: Room Air Patient Handouts: Hypotension, [id number], Indwelling Urinary Catheter Care, Adult, [id number], Syncope, [id number] Forms: ED Department Discharge Referrals: Celestina Christiansen NP [Primary Care Provider] - 06/18/21 9:15 am (This is your check in time for your appointment) Josh Faith MD [Ordering Only Provider] - 06/20/21 (Please keep this appointment with Dr Faith.) - Discharge Summary/Plan Comment DC Time >30 min.: Yes Total # of Minutes for Discharge Time: 35 Total time spent includes seeing the patient, doing discharge paperwork, and arranging care. - General Info Date of Service: 06/11/21 Admission Dx/Problem (Free Text: Admission Diagnosis/Problem Admission Diagnosis/Problem Syncope and collapse Subjective Update: Patient states he is feeling well. He has no dizziness, chest pain, palpitations, or dysuria. Unfortunately he still had over 500 mL residual in his bladder so a Hargrove catheter was replaced. Functional Status: Reports: Pain Controlled - Review of Systems General: Reports: No Symptoms HEENT: Reports: No Symptoms Pulmonary: Reports: No Symptoms Cardiovascular: Reports: No Symptoms Gastrointestinal: Reports: No Symptoms Musculoskeletal: Reports: No Symptoms - Patient Data Vitals - Most Recent: Last Vital Signs Temp 96.9 F 06/11/21 11:30 Pulse 99 06/11/21 11:30 Resp 18 06/11/21 08:00 BP 103/76 06/11/21 08:00 Pulse Ox 96 06/11/21 08:00 Orthostatic Blood Pressure [ 115/89 Standing] Orthostatic Blood Pressure [ 125/87 Sitting] Orthostatic Blood Pressure [ 125/91 Supine] Weight - Most Recent: 197 lb 3.2 oz I&O - Last 24 hours: Intake & Output 06/10/21 06/11/21 06/11/21 22:59 06:59 14:59 Intake Total 180 1225 360 Output Total 200 955 Balance -20 270 360 Lab Results - Last 24 hrs: Laboratory Results - last 24 hr 06/11/21 06/11/21 Range/Units 09:20 09:20 WBC 7.02 (4.23-9.07) K/mm3 RBC 3.52 L (4.63-6.08) M/mm3 Hgb 10.0 L (13.7-17.5) gm/dl Hct 31.0 L (40.1-51.0) % MCV 88.1 (79.0-92.2) fl MCH 28.4 (25.7-32.2) pg MCHC 32.3 (32.2-35.5) g/dl RDW Std Deviation 53.5 H (35.1-43.9) fL Plt Count 239 (163-337) K/mm3 MPV 10.2 (9.4-12.3) fl Neut % (Auto) 61.5 (34.0-67.9) % Lymph % (Auto) 28.1 (21.8-53.1) % [place] % (Auto) 8.1 (5.3-12.2) % Eos % (Auto) 2.1 (0.8-7.0) Baso % (Auto) 0.1 (0.1-1.2) % Neut # (Auto) 4.31 (1.78-5.38) K/mm3 Lymph # (Auto) 1.97 (1.32-3.57) K/mm3 [place] # (Auto) 0.57 (0.30-0.82) K/mm3 Eos # (Auto) 0.15 (0.04-0.54) K/mm3 Baso # (Auto) 0.01 (0.01-0.08) K/mm3 Sodium 136 (136-145) mEq/L Potassium 3.9 (3.5-5.1) mEq/L Chloride 103 (98-107) mEq/L Carbon Dioxide 21 (21-32) mEq/L Anion Gap 15.9 H (5-15) BUN 5 L (7-18) mg/dL Creatinine 0.8 (0.7-1.3) mg/dL Est Cr Clr Drug Dosing 92.06 mL/min Estimated GFR (MDRD) > 60 (>60) mL/min BUN/Creatinine Ratio 6.3 L (14-18) Glucose 86 (70-99) mg/dL Calcium 8.1 L (8.5-10.1) mg/dL Phosphorus 2.6 (2.6-4.7) mg/dL Magnesium 1.9 (1.8-2.4) mg/dL Med Orders - Current: Current Medications Acetaminophen (Acetaminophen 325 Mg Tab) 650 mg PO Q4H PRN PRN Reason: Pain (Mild 1-3)/fever Last Admin: 06/10/21 22:51 Dose: 650 mg Documented by: Enoxaparin Sodium (Enoxaparin 40 Mg/0.4 Ml Syringe) 40 mg SUBCUT DAILY [facility] Last Admin: 06/11/21 08:00 Dose: 40 mg Documented by: Finasteride (Finasteride 5 Mg Tab) 5 mg PO BEDTIME [facility] Last Admin: 06/10/21 20:32 Dose: 5 mg Documented by: Midodrine (Midodrine 5 Mg Tab) 5 mg PO TIDAC [facility] Last Admin: 06/11/21 11:46 Dose: 5 mg Documented by: Sulfasalazine 500 Mg (Tab Ptom) 0 mg PO BID [facility] Last Admin: 06/11/21 08:18 Dose: 2 mg Documented by: Ondansetron HCl (Ondansetron 4 Mg/2 Ml Sdv) 4 mg IV Q6H PRN PRN Reason: Nausea/Vomiting Prednisone (Prednisone 20 Mg Tab) 20 mg PO Q12H [facility] Last Admin: 06/11/21 08:00 Dose: 20 mg Documented by: Discontinued Medications Hydrocortisone Sodium Succinate (Hydrocortisone Sodium Succinate 100 Mg/2 Ml Sdv) 100 mg IVPUSH ONETIME ONE Stop: 06/09/21 15:04 Last Admin: 06/09/21 16:04 Dose: 100 mg Documented by: Dextrose/Sodium Chloride (Dextrose 5%-Normal Saline) 1,000 mls @ 999 mls/hr IV ASDIRECTED [facility] Last Admin: 06/09/21 13:30 Dose: 999 mls/hr Documented by: Potassium Chloride 10 meq/ (Premix) 100 mls @ 100 mls/hr IV Q1H [facility] Stop: 06/09/21 20:44 Last Admin: 06/09/21 17:39 Dose: Not Given Documented by: Magnesium Sulfate 4 gm/ Premix 50 mls @ 12.5 mls/hr IV ONETIME ONE Stop: 06/09/21 19:00 Last Admin: 06/09/21 16:02 Dose: 12.5 mls/hr Documented by: Sodium Chloride (Normal Saline) 1,000 mls @ 75 mls/hr IV ASDIRECTED [facility] Last Admin: 06/10/21 05:20 Dose: 75 mls/hr Documented by: Potassium Chloride 10 meq/ (Premix) 100 mls @ 100 mls/hr IV Q1H [facility] Stop: 06/09/21 20:59 Last Admin: 06/09/21 20:24 Dose: 100 mls/hr Documented by: Magnesium Sulfate 2 gm/ Premix 50 mls @ 25 mls/hr IV ONETIME ONE Stop: 06/10/21 13:29 Last Admin: 06/10/21 12:24 Dose: 25 mls/hr Documented by: Potassium Phosphate 30 mmole/ (Sodium Chloride) 510 mls @ 102 mls/hr IV ONETIME ONE Stop: 06/10/21 18:29 Last Admin: 06/10/21 13:39 Dose: 102 mls/hr Documented by: Midodrine (Midodrine 5 Mg Tab) 5 mg PO ONETIME ONE Stop: 06/09/21 16:42 Last Admin: 06/09/21 17:20 Dose: 5 mg Documented by: Potassium Chloride (Potassium Chloride 20 Meq Tab.Er) 40 meq PO ONETIME ONE Stop: 06/09/21 22:01 Last Admin: 06/09/21 21:32 Dose: 40 meq Documented by: - Exam Quality Assessment: Denies: Supplemental Oxygen General: Reports: Alert, Oriented HEENT: Reports: Pupils Equal, Mucous Membr. Moist/[place] Neck: Reports: Supple Lungs: Reports: Clear to Auscultation, Normal Respiratory Effort Cardiovascular: Reports: Regular Rate, Regular Rhythm GI/Abdominal Exam: Normal Bowel Sounds, Soft, Non-Tender, No Organomegaly, No Distention, No Abnormal Bruit, No Mass Extremities: Normal Inspection, Normal Range of Motion, Non-Tender, No Pedal Edema, Normal Capillary Refill Skin: Reports: Warm, Dry, Intact Psy/Mental Status: Reports: Alert, Normal Affect, Normal Mood
== END 2021-06-11 14:00 | disposition home or self-care (01) | DRG 312 ==
LOC: JD.ED 12:35 → JD.ICU 17:09
PROVIDERS: ADMIT Family Medicine; ATTEND Family Medicine
DX: I95.1 Orthostatic hypotension (principal); I95.2 Hypotension due to drugs; E27.2 Addisonian crisis; E87.1 Hypo-osmolality and hyponatremia; T50.905A Adverse effect of unspecified drugs, medicaments and biological substances, initial encounter; I50.33 Acute on chronic diastolic (congestive) heart failure; H91.90 Unspecified hearing loss, unspecified ear; E87.6 Hypokalemia; K44.9 Diaphragmatic hernia without obstruction or gangrene; E83.42 Hypomagnesemia; G89.29 Other chronic pain; M54.9 Dorsalgia, unspecified; M06.9 Rheumatoid arthritis, unspecified; I73.00 Raynaud's syndrome without gangrene; Z79.899 Other long term (current) drug therapy; N13.9 Obstructive and reflux uropathy, unspecified; I95.89 Other hypotension; I11.0 Hypertensive heart disease with heart failure; I50.9 Heart failure, unspecified; N40.0 Benign prostatic hyperplasia without lower urinary tract symptoms; Z20.822 Contact with and (suspected) exposure to COVID-19; T44.6X5A Adverse effect of alpha-adrenoreceptor antagonists, initial encounter; Y92.89 Other specified places as the place of occurrence of the external cause; Z90.89 Acquired absence of other organs
CPT/HCPCS: 36415; 71045; 80053; 82553; 83735; 83880; 84484; 85025; 85610; 85730; 86140; 86850; 86900; 86901; J1720; J3475; J3480 ×2; J7030; J7042; U0002; 80048; 81001; 84100; 84153; 93306; A9270-GY; J1650; J3490; J7040; J7512

== ENCOUNTER 2024-03-02 10:12 | Emergency (ER) | payer MEDICARE, BC ==
[2024-03-02] MEDS: Diltiazem 25 MG/5 ML SDV IVPUSH ONE ×2 (11:19→12:37)
[2024-03-02 11:25] LABS: BASOPHILS ABSOLUTE AUTO 0.1 K/mm3 (0.0-0.2); BASOPHILS PERCENT AUTO 0.7 % (0.0-1.0); EOSINOPHILS ABSOLUTE AUTO 0.1 K/mm3 (0.0-0.4); EOSINOPHILS PERCENT AUTO 1.2 % (0.0-6.0); HEMATOCRIT 34.4 % (42.0-52.0); IMMATURE GRAN ABSOLUTE AUTO 0.03 K/mm3 (0.00-0.05); IMMATURE GRAN PERCENT AUTO 0.3 % (0.0-0.4); LYMPHOCYTES ABSOLUTE AUTO 1.9 K/mm3 (1.0-4.8); LYMPHOCYTES PERCENT AUTO 18.2 % (24.0-44.0); MEAN CORPUSCULAR HEMOGLOBIN 18.8 pg (28.0-32.0); MEAN CORPUSCULAR HGB CONC 29.1 g/dl (32.0-36.0); MEAN CORPUSCULAR VOLUME 64.7 fl (83.0-99.0); MEAN PLATELET VOLUME 9.7 fl (9.4-12.4); MONOCYTES ABSOLUTE AUTO 0.9 K/mm3 (0.0-0.8); NEUTROPHILS ABSOLUTE AUTO 7.4 K/mm3 (1.8-7.7); NEUTROPHILS PERCENT AUTO 70.6 % (41.0-71.0); PLATELET COUNT,PLT 369 K/mm3 (150-400); RED BLOOD CELL COUNT 5.32 M/mm3 (4.52-5.90); WHITE BLOOD CELL COUNT,WBC 10.49 K/mm3 (3.9-11.3)
[2024-03-02] MEDS: Diltiazem 125 MG in Sodium Chloride 0.9% 100 ML IV SCH (11:30)
[2024-03-02] MEDS: Sodium Chloride 0.9% 1,000 ML IV SCH (11:30)
[2024-03-02] MEDS: Sodium Chloride 0.9% 10 ML Syringe FLUSH PRN (11:30)
[2024-03-02 11:41] LABS: A/G RATIO 0.7 (1-2); ALBUMIN 3.2 g/dl (3.4-5.0); ANION GAP 13.5 (5-15); BILIRUBIN TOTAL 0.9 mg/dL (0.2-1.0); BUN/CREATININE RATIO 13.6 (14-18); CALCIUM 8.7 mg/dL (8.5-10.1); CREATININE 1.1 mg/dL (0.7-1.3); EST CRCL DRUG DOSING (CG) 65.17 mL/min; MAGNESIUM 1.6 mg/dL (1.8-2.4); POTASSIUM,K 4.5 mEq/L (3.5-5.1); PROTEIN TOTAL,TP 7.5 g/dl (6.4-8.2); TSH 0.802 uIU/mL (0.358-3.74)
[2024-03-02 12:21] LABS: SLIDE REVIEW ABNORMAL SMEAR
[2024-03-02] MEDS: HYDROmorphone 0.5 MG/0.5 ML Syringe IVPUSH ONE (12:37)
[2024-03-02] MEDS: Diltiazem IR 60 MG Tab PO ONE (13:28)
[2024-03-02 14:24] VITALS: PULSE 84
[2024-03-02 15:31] VITALS: BP 141/94
== END 2024-03-02 15:31 | disposition home or self-care (01) ==
LOC: JD.ED 10:12
DX: G89.29 Other chronic pain (principal); M54.50 Low back pain, unspecified; I10 Essential (primary) hypertension; Z79.899 Other long term (current) drug therapy
CPT/HCPCS: 36415; 71045; 80053; 83735; 84443; 84484; 85025; 93005; 96365; 96375; 99285; A9270; J1170; J3490; J7030; 93010

== ENCOUNTER 2024-11-17 07:13 | Day surgery (SDC) | payer MEDICARE, BC ==
[~2024-11-17 07:13] MED LIST: Sodium Chloride 0.9% 10 ML Syringe FLUSH PRN; Sodium Chloride 0.9% 10 ML Syringe FLUSH SCH
[2024-11-17] MEDS ORDERED: Ondansetron 4 MG/2 ML SDV IVPUSH ONE (07:36)
[2024-11-17] MEDS ORDERED: propofoL 500 MG/50 ML 50 ML ONE ×2 (07:51→08:15)
[2024-11-17] MEDS: Lactated Ringers 1,000 ML IV SCH (07:55)
[2024-11-17] MEDS: Metoprolol Succinate 50 MG Tab.ER PO ONE (07:59)
[2024-11-17 09:53] VITALS: BP 115/76; PULSE 98
== END 2024-11-17 09:45 | disposition home or self-care (01) ==
LOC: JD.SDS 07:13
PROVIDERS: ATTEND Surgery
DX: D50.9 Iron deficiency anemia, unspecified (principal); D12.2 Benign neoplasm of ascending colon; D12.4 Benign neoplasm of descending colon; K21.00 Gastro-esophageal reflux disease with esophagitis, without bleeding; K29.50 Unspecified chronic gastritis without bleeding; I10 Essential (primary) hypertension; I48.91 Unspecified atrial fibrillation; Z79.01 Long term (current) use of anticoagulants; Z79.899 Other long term (current) drug therapy
CPT/HCPCS: 43239; 45380; A9270; J2704; J7120; 00813